=== PATIENT | male | born 1980 ===

== ENCOUNTER 2022-10-19 08:26 | Emergency (ER) | payer OTHER, SELFPAY ==
[2022-10-19 08:35] VITALS: BP 136/105; PULSE 66; RESP 14; TEMP 36.8; O2SAT 98; BMI 29.2
--- NOTE | 2022-10-19 08:56 | ED_ITS ---
HPI - Chest Pain General Time Seen by Provider: 08:57 Date Seen: 10/19/22 Chief Complaint: Chest Pain Stated Complaint: L arm pain, chest pain, TBI causing headaches Time Seen by Provider: 10/19/22 08:46 Source: patient and RN notes reviewed Mode of arrival: ambulatory Limitations: no limitations History of Present Illness HPI narrative: Patient is a 42-year-old male coming in with concerns of possibly his heart. He Googled his symptoms when he could not sleep and it told him to come to the ER. Around 4-5 this morning he could not sleep, is suffering from TBI issues for the last 2 months. He states he has been out of work for 2 months, still stuttering and having balance issues. Has chronic daily headaches. Is scheduled for an appointment in [place] at 3:45 p.m. today, is concerned he might miss it. He was up at 4-5 this morning, notice left forearm pain. He does admit that the pain shot down the arm. He tried to walk it off. He took naproxen 500 mg about 2 hours ago which he has firs TBI. His left forearm pain has resolved. With all of this after he noted the left forearm pain, he thought his chest just felt puffy feeling, discomfort with it. He was not sure if it was just anxiety. He does not have a heart history. He did have a stress test in 2016 and he remembers being told his heart was healthy. He is not a smoker. He states he has not been checked for diabetes and does wonder if he could have that, is unaware of cholesterol status. He does get significant heartburn with tomato in marrow narrow which has been progressively worse. He states he really likes pizza rolls and has not been able to eat them in over a week. The last time he ate them he actually had an emesis or regurgitation secondary to heartburn. Nine hundred thirty last night he did have an emesis, not really sure why. Denies any abdominal pain, no nausea at this time. He does drink some alcohol. As far as family history, their grandparents on both sides that had MIs. He believes his parents are healthy without any problems with the exception of his dad maybe having skin cancer. No numbness tingling in the left arm. Related Data Previous Rx's Medication Instructions Recorded omeprazole 40 mg capsule,delayed 40 mg PO DAILY #30 caps 10/19/22 release prednisone 20 mg tablet 20 mg PO BID #10 tabs 10/19/22 Allergies Allergy/AdvReac Type Severity Reaction Status Date / Time No Known Drug Allergies Allergy Verified 01/11/22 17:06 Review of Systems Status of ROS Reports: 6 or more systems reviewed and unremarkable except as noted in History and below [facility] Social History Smoking Status: Never smoker How often do you have a drink containing alcohol: 4 or more times a week AUDIT-C Alcohol total score: 4 Non-prescribed substance use: denies use Exam Const Vital Signs, click to edit/add: Vital Signs - 24 hr 10/19/22 08:35 Temperature 98.2 F Pulse Rate [Pulse Oximeter] 66 Respiratory Rate 14 Blood Pressure [Left Upper Arm] 136/105 H Pulse Oximetry 98 Oxygen Delivery Method Room Air Documenting provider has reviewed patient's vital signs: yes Common normals: no apparent distress, average body habitus, oriented x3, no limitations, healthy appearing, alert and well nourished General appearance: cooperative, comfortable, well kempt and well developed HENMT Common normals: normocephalic, head/scalp atraumatic and hearing grossly normal bilaterally (Does have hearing aid) Head and scalp: normocephalic and atraumatic Face and sinus: normal facial exam Eye Common normals: PERRL, EOMs intact bilaterally, conjunctivae normal and no scleral icterus Conjunctiva: conjunctiva(e) normal Pupil: PERRL Neck & C-Spine Common normals: full ROM, no lymphadenopathy, supple, no meningeal signs, no JVD and thyroid normal Thyroid: thyroid normal Lymph Lymphatic: no lymphadenopathy noted Chest Common normals: inspection of chest normal and palpation of chest normal (Maybe some generalized anterior chest wall tenderness without any crepitus) Resp Common normals: normal respiratory effort, no retractions, no use of accessory muscles and clear to auscultation bilaterally Effort & inspection: able to speak in complete sentences Auscultation: clear to auscultation bilaterally Cardio Common normals: no JVD, regular rate, regular rhythm, S1 normal heart sound, S2 normal heart sound, no gallops, no clicks and no murmurs Rate: regular rate Rhythm: regular rhythm Heart sounds: S1 normal and S2 normal GI Common normals: Normal to inspection, nondistended, normoactive bowel sounds present, soft to palpation, non-tender, no hepatosplenomegaly and no masses Palpation: soft and no hepatosplenomegaly Extremity Common normals: normal to inspection, full ROM, no calf tenderness and no pedal edema Other: Left arm with full range of motion, normal strength, normal pulses, has good capillary refill, no joint abnormalities noted. Neuro Common normals: oriented x3, moves all extremities, no focal motor deficits and no sensory deficits noted Sensorium/orientation: alert Meningeal signs: no meningeal signs Psych Appearance: well kempt Course Course Hospital Course: With the pain in his forearm and the shooting pain down the left arm, radiculopathy from a cervical spine could be potential. Will get cervical spine films. He is asymptomatic at this time but also took naproxen which certainly could alleviate this type of pain. He is also reporting significant reflux and heartburn symptoms as of late. Underlying GI pathology could be giving him is chest symptomatology. Arrival EKG is very reassuring. He noted symptoms since 4-5 this a.m., his presentation time would make this present at least 4-5 hours, thus the single troponin should rule out WI. will do full complement of labs, including D-dimer. Will get a chest x-ray as well. I have higher suspicion for other etiologies over heart disease at this time. Given his heartburn and reflux symptoms, do think aspirin might exacerbate that and within normal EKG, will await any aspirin for him. I will actually give him 40 mg IV Protonix. Will re-evaluate this obviously if his troponin should be elevated. Will do the point of care troponin but do a confirmatory in the lab as well to ensure no falls readings with the point of care. Reevaluation(s) Time of Reevaluation #1: 12:01 Reevaluation #1: Patient was resting and was awoken when I came in the room. He is still feeling some left arm pain, shoots down the arm intermittently. We reviewed that his cardiac enzymes and EKGs are not revealing any heart attack, this certainly is not a stroke. His neck imaging does indicate that he might have underlying pathology for a cervical radiculopathy. Would recommend that we try some prednisone. He has some Naprosyn at home for his TBI but is not taking it chronically. It did help for while this morning but is not completely causes pain to subside. For his reflux symptoms, would recommend proton pump inhibitor and certainly while he is on the prednisone. He states he does not have a primary care provider, do recommend that he get 1. We have discussed establishing care maybe at the [facility] and like [facility] or [place] as he lives in [place]. He should keep his TBI appointment this afternoon. Vital Signs Vital signs: Initial Vital Signs Temperature 98.2 F 10/19/22 08:35 Temperature Source Temporal Artery Scan 10/19/22 08:35 Pulse Rate 66 10/19/22 08:35 Pulse Rhythm Regular 10/19/22 08:35 Respiratory Rate 14 10/19/22 08:35 Blood Pressure 136/105 H 10/19/22 08:35 Blood Pressure Mean 115 H 10/19/22 08:35 Blood Pressure Position Supine 10/19/22 08:35 Pulse Oximetry 98 10/19/22 08:35 Oxygen Delivery Method Room Air 10/19/22 08:35 Vital Signs Temperature 98.2 F 10/19/22 08:35 Pulse Rate 66 10/19/22 08:35 Respiratory Rate 14 10/19/22 08:35 Blood Pressure 136/105 H 10/19/22 08:35 Pulse Oximetry 98 10/19/22 08:35 Oxygen Delivery Method Room Air 10/19/22 08:35 Temperature 98.2 F 10/19/22 08:35 Pulse Rate 66 10/19/22 08:35 Respiratory Rate 14 10/19/22 08:35 Blood Pressure 136/105 H 10/19/22 08:35 Pulse Oximetry 98 10/19/22 08:35 Oxygen Delivery Method Room Air 10/19/22 08:35 MDM - Chest Pain Differential Diagnosis Differential diagnosis: Likely stable angina, unstable angina pectoris, atypical chest pain, costochondritis, chest pain and biliary colic Lab Data Attestation: I reviewed the patient's lab results. Labs: Lab Results 10/19/22 10/19/22 10/19/22 Range/Units 08:58 09:25 10:55 WBC 5.49 (4.50-11.00) K/uL RBC 4.32 (4.30-5.90) m/uL Hgb 14.6 (13.5-17.5) gm/dL Hct 41.6 (37.0-53.0) % MCV 96 (80-100) fL MCH 34 (26-34) pg MCHC 35 (32-36) gm/dL RDW Coeff of Murphy 12.7 (11.5-15.5) % Plt Count 150 (140-440) K/uL Neut % (Auto) 70.4 (42.0-72.0) % Lymph % (Auto) 18.2 L (20-44) % Childress % (Auto) 10.0 (0.0-11.0) % Eos % (Auto) 0.5 (0.0-7.0) % Baso % (Auto) 0.7 (0.0-3.0) % Neut # (Auto) 3.86 (1.7-7.0) K/uL Lymph # (Auto) 1.00 (0.90-2.90) K/uL Childress # (Auto) 0.50 (0.00-0.90) K/UL Eos # (Auto) 0.03 (0.00-0.50) K/uL Baso # (Auto) 0.04 (0.00-0.30) K/uL Abs Immat Gran (auto) 0.01 (0.00-0.30) K/uL Imm/Tot Granulo (auto) 0.2 % D-Dimer Quant (PE/DVT) < 0.27 (0.00-0.50) ug/ml Sodium 132 L (135-149) mmol/L Potassium 3.4 L (3.6-5.1) mmol/L Chloride 95 L (96-114) mmol/L Carbon Dioxide 28 (20-32) mmol/L BUN 10 (5-24) mg/dL Creatinine 0.8 (0.5-1.5) mg/dL Estimated Creat Clear 130.68 Estimated GFR 113 ml/min Glucose 86 (60-115) mg/dL Lactate 0.9 (0.5-1.9) mmol/L Calcium 9.5 (8.4-10.6) mg/dL Total Bilirubin 1.5 (0.1-1.5) mg/dL AST 68 H (12-35) U/L ALT 69 H (4-50) U/L Alkaline Phosphatase 60 (40-150) U/L Troponin I 0.02 (0.01-0.04) ng/mL C-Reactive Protein 0.5 (0.5-1.0) mg/dL NT-Pro-B Natriuret Pep 144 pg/mL Total Protein 7.3 (6.0-8.3) g/dL Albumin 4.5 (3.3-5.0) g/dL Lipase 259 (23-300) U/L POC Troponin I 0.01 0.00 L (0.01-0.04) ng/ml Imaging Data Chest x-ray: Attestation: I have reviewed the pertinent imaging results. My impression: I see no acute cardiopulmonary pathology on my preliminary review of this chest x-ray. Radiologist's impression: Patient: ISAIAH REYES Facility:?[facility] Patient ID:?[id number] Site Patient ID:?[id number]. Site :?1980 Study:?XRay Chest 2 VIEW-10/19/2022 9:15:46 AM Ordering Physician:?Christoph Edgar Final Report: INDICATION: ARM AND CHEST PAIN TECHNIQUE: Chest 2 views. COMPARISON: None. FINDINGS: Cardiovascular and mediastinum: Heart size and vasculature are normal in caliber and appearance. Lungs and pleural spaces: Lungs are clear. No sign of infiltrate. No sign of pleural effusion. No pneumothorax. Bones and soft tissues: No significant findings. IMPRESSION: No evidence of acute cardiopulmonary process. Dictated by Terence Lyn MD @ 10/19/2022 9:58:23 AM (Electronic Signature) XR cervical spine: Attestation: I have reviewed the pertinent imaging results. Radiologist's impression: Patient: ISAIAH REYES Facility:?[facility] Patient ID:?[id number] Site Patient ID:?[id number]. Site :?1980 Study:?XRay Spine Cervical -10/19/2022 9:48:44 AM Ordering Physician:Vamshi Edgar Final Report: INDICATION: pain in left arm, radiated down arm TECHNIQUE: Cervical spine 3 view. COMPARISON: None. IMPRESSION: Bones: Straightening of expected cervical lordosis. No fractures or significant bone lesions. No spondylolisthesis. Joints: Mild intervertebral disc space narrowing and uncovertebral arthropathy at C5-6 and C6-7. Mild facet arthropathy the lower cervical levels. Soft tissues: Unremarkable. Dictated by Terence Lyn MD @ 10/19/2022 10:50:32 AM (Electronic Signature) ECG Data Attestation: I personally reviewed and interpreted this ECG as follows: (Normal sinus rhythm, 64 beats per minute, no ischemia, QT corrected 416 milliseconds.) ECG interpretation date: 10/19/22 ECG interpretation time: 08:59 Critical Care Time Critical Care Time Critical Care Time: No Discharge Plan Discharge Clinical Impression: Left cervical radiculopathy, GERD (gastroesophageal reflux disease), Chest pain Patient Disposition: Home, Self-Care Condition: Stable Instructions: Chest Pain (ED), GERD (Gastroesophageal Reflux Disease) (ED), Cervical Radiculopathy (ED) Additional Instructions: Start prednisone and take as prescribed, take with food. Will also place you on omeprazole which will hopefully help decrease your heartburn and acid reflux symptoms. Try to minimize foods and any drinks that precipitate this. Do need you to follow up in clinic within the next 1-2 weeks to establish care and follow your medical conditions. You can consider finding 1 of the clinics in [facility]. Clinics associated with [facility] are the [facility] and the [facility]. [phone] and [phone] are the numbers to these clinics respectively. May need to get a referral for your arm if there are ongoing symptoms, this would be to physical therapy. If you have ongoing reflux symptoms or issues, may need to consider further lab testing for H pylori and consideration of an EGD, your primary care provider can help you work through this. Activity Level: Activity as Tolerated Prescriptions: New prednisone 20 mg tablet 20 mg PO BID Qty: 10 0RF omeprazole 40 mg capsule,delayed release(DR/EC) 40 mg PO DAILY Qty: 30 0RF Follow Up/Referrals: Provider,Not a Local [Primary Care Provider] - Stand Alone Forms: [facility] Info Instructions
[2022-10-19 08:57] VITALS: O2SAT 98
--- NOTE | 2022-10-19 08:57 | CRLHL7_ITS ---
For Patients: As a result of the Century Cures Act, medical imaging exams and procedure reports are released immediately into your electronic medical record. You may view this report before your referring provider. If you have questions, please contact your health care provider. INDICATION: ARM AND CHEST PAIN TECHNIQUE: Chest 2 views. COMPARISON: None. FINDINGS: Cardiovascular and mediastinum: Heart size and vasculature are normal in caliber and appearance. Lungs and pleural spaces: Lungs are clear. No sign of infiltrate. No sign of pleural effusion. No pneumothorax. Bones and soft tissues: No significant findings. IMPRESSION: No evidence of acute cardiopulmonary process. Dictated by Terence Lyn MD @ 10/19/2022 9:58:23 AM (Electronically Signed)
--- NOTE | 2022-10-19 09:05 | CRLHL7_ITS ---
For Patients: As a result of the Cures Act, medical imaging exams and procedure reports are released immediately into your electronic medical record. You may view this report before your referring provider. If you have questions, please contact your health care provider. INDICATION: pain in left arm, radiated down arm TECHNIQUE: Cervical spine 3 view. COMPARISON: None. IMPRESSION: Bones: Straightening of expected cervical lordosis. No fractures or significant bone lesions. No spondylolisthesis. Joints: Mild intervertebral disc space narrowing and uncovertebral arthropathy at C5-6 and C6-7. Mild facet arthropathy the lower cervical levels. Soft tissues: Unremarkable. Dictated by Terence Lyn MD @ 10/19/2022 10:50:32 AM (Electronically Signed)
[2022-10-19 09:35] LABS: Lactate* 0.9 mmol/L (0.5-1.9)
[2022-10-19 09:38] LABS: Basophils Absolute Auto 0.04 K/uL (0.00-0.30); Basophils Percent Auto 0.7 % (0.0-3.0); Eosinophils Absolute Auto 0.03 K/uL (0.00-0.50); Eosinophils Percent Auto 0.5 % (0.0-7.0); Hematocrit 41.6 % (37.0-53.0); Hemoglobin* 14.6 gm/dL (13.5-17.5); Immature Granulocytes Abs Auto 0.01 K/uL (0.00-0.30); Immature Granulocytes Pct Auto 0.2 %; Lymphocytes Percent Auto 18.2 % (20-44); Mean Corpuscular HGB Conc 35 gm/dL (32-36); Mean Corpuscular Hemoglobin 34 pg (26-34); Mean Corpuscular Volume 96 fL (80-100); Neutrophils Absolute Auto 3.86 K/uL (1.7-7.0); Neutrophils Percent Auto 70.4 % (42.0-72.0); Platelet Count* 150 K/uL (140-440); RDW Coefficient of Variation % 12.7 % (11.5-15.5); Red Blood Count 4.32 m/uL (4.30-5.90); White Blood Count* 5.49 K/uL (4.50-11.00)
[2022-10-19 09:52] LABS: Slide Review Reflex No
[2022-10-19 10:00] LABS: D Dimer Quantitative* < 0.27 ug/ml (0.00-0.50)
[2022-10-19 10:03] LABS: Albumin* 4.5 g/dL (3.3-5.0); Chloride* 95 mmol/L (96-114); Sodium* 132 mmol/L (135-149)
[2022-10-19 10:04] LABS: Potassium* 3.4 mmol/L (3.6-5.1)
[2022-10-19 10:05] LABS: Creatinine* 0.8 mg/dL (0.5-1.5); Est. Creatinine Clearance* 130.68; Estimated Glomerular Filt Rate 113 ml/min
[2022-10-19 10:06] LABS: Alanine Aminotransferase* 69 U/L (4-50); Alkaline Phosphatase* 60 U/L (40-150); Aspartate Amino Transferase* 68 U/L (12-35); Bilirubin Total* 1.5 mg/dL (0.1-1.5); Blood Urea Nitrogen* 10 mg/dL (5-24); Carbon Dioxide* 28 mmol/L (20-32); Glucose* 86 mg/dL (60-115); Lipase* 259 U/L (23-300); Total Protein* 7.3 g/dL (6.0-8.3)
[2022-10-19 10:07] LABS: Calcium* 9.5 mg/dL (8.4-10.6)
[2022-10-19 10:09] LABS: C Reactive Protein* 0.5 mg/dL (0.5-1.0)
[2022-10-19 10:18] LABS: Troponin I* 0.02 ng/mL (0.01-0.04)
[2022-10-19 10:19] LABS: NT Pro B Type NatriureticPept* 144 pg/mL
[2022-10-19 11:13] LABS: Troponin, Point-of-Care* 0.01 ng/ml (0.01-0.04)
[2022-10-19 13:20] VITALS: BP 136/105; PULSE 66; RESP 14; TEMP 36.8
== END 2022-10-19 13:20 | disposition home or self-care (01) ==
PROVIDERS: Emergency Provider Family Medicine
DX: R07.9 Chest pain, unspecified (principal); M54.12 Radiculopathy, cervical region; K21.9 Gastro-esophageal reflux disease without esophagitis
CPT/HCPCS: 36415; 71046; 72040; 80053; 83605; 83690; 83880; 84484; 85025; 85379; 86140; 93005; 94761; 99284; 99285

== ENCOUNTER 2023-05-01 13:27 | Outpatient (CLI) | payer OTHER, SELFPAY ==
--- OUTSIDE RECORDS SUMMARY | 2023-05-01 13:43 | XMS_ITS | Encounter Summary ---
Author Name Unknown Organization [facility] Address [address] [place] [address] Care Team Providers Care Manager Heavy Duty Name Role Phone Blake, Primary Care Provider Unavailabl e Clinic, No Primary Unavailable Unavailable Reason for Visit * (Routine) - Open Specialty Diagnoses / Procedures Referred By Jd t Referred To Contact Diagnoses Vision changes Procedures MRI BRAIN W/O&W CON Christofer Quigley MD [address] [place] [address] [address] [place] [address] Referral ID Status Reason Start Date Expiration Date Visits Re quested Visits Authorized [id number] Open 11/21/2022 1 1 Encounter Details Date Type Department Care Team (Late st Contact Info) Description 12/03/2022 3:30 PM CDT Ancillary Procedure [facility] [address] [place] [address] [address] [place] [id number] Vision changes Social History Tobacco Use Types Packs/Day Years Used Date Smoking Tobacco: Never Smokeless Tobacco: Never Alcohol Use Standard Drinks/Week Comments Not Currently 15 (1 standard drink = 0.6 oz pu re alcohol) Sex and Gender Information Value Date Recorded Sex Assigned at Not on file Gender Identity Not on file Sexual Orientation Not on file documented as of this encounter Plan of Treatment Not on file documented as of this encounter Procedures Procedure Name Priority Date/Time Associated Diagnosis Comments MRI BRAIN W/O&W CON Routine 12/03/2022 3 :45 PM CDT Vision changes documented in this encounter Results * MRI BRAIN W/O&W CON (12/03/2022 3:45 PM CDT) Anatomical Region Laterality Modality Head Magnetic Resonan ce 12/03/2022 7:54 PM CDT Impressions 12/03/2022 8:00 PM CDT 1. ??1 cm faint crescentic T2 prolongation with enhancement at the right frontal centrum semiovale semiovale, probably reflecting an underlying vascular anomaly of no clinical significance. Less likely secondary consideration of an inflammatory lesion. Subacute enhancing infarction is not favored. Follow-up MRI in 3-6 months may be considered to assess its stability. 2. ??Minimal bifrontal white matter T2 prolongation, which could reflect chronic migrainous changes, chronic microvascular disease, gliosis from remote inflammatory or other vascular insult. 3. ??No acute or significant intracranial abnormality. Signed by Louis Shah M.D. Narrative 12/03/2022 8:00 PM CDT EXAM: MRI BRAIN W/O&W CON 12/03/2022. COMPARISON: ??None. HISTORY: ??vision changes ICD-10: ??H53.9 Unspecified visual disturbance CONTRAST: GADOBUTROL 1 MMOL/ML (604.72 MG/ML) INTRAVENOUS SOLUTION ?Dose Given: 9 mL TECHNIQUE: Sagittal FLAIR T1, axial FLAIR T2, axial fat saturated FSE T2, axial DWI, axial T1, axial GRE, axial and coronal T1 post gadolinium. 9 cc contrast was administered intravenously. FINDINGS: Approximately 1 cm faint crescentic T2 prolongation with enhancement at the right frontal centrum semiovale is without underlying mass, mass effect, or restricted diffusion. This probably reflects an incidental vascular anomaly, clinically insignificant. Elsewhere, no restricted diffusion, gradient signal abnormality or mass is noted. Ventricles are normal in size and configuration. Brain volume is normal. No other abnormal intracranial enhancement is seen. Minimal punctate and predominantly bifrontal white matter T2 prolongation is apparent. Corpus callosum and posterior fossa are normal. Trivial ethmoid and maxillary sinus disease, insignificant. Remaining paranasal sinuses and mastoid air cells are clear. The cervicomedullary junction is normal. Dural sinuses are patent. Intravascular flow voids are maintained at the skull base. Procedure Note Louis Shah MD - 12/03/2022 EXAM: MRI BRAIN W/O&W CON 12/03/2022. COMPARISON: None. HISTORY: vision changes ICD-10: H53.9 Unspecified visual disturbance CONTRAST: GADOBUTROL 1 MMOL/ML (604.72 MG/ML) INTRAVENOUS SOLUTION DoseGiven: 9 mL TECHNIQUE: Sagittal FLAIR T1, axial FLAIR T2, axial fat saturated FSE T2,axial DWI, axial T1, axial GRE, axial and coronal T1 post gadolinium. 9 cccontrast was administered intravenously. FINDINGS: Approximately 1 cm faint crescentic T2 prolongation withenhancement at the right frontal centrum semiovale is without underlyingmass, mass effect, or restricted diffusion. This probably reflects anincidental vascular anomaly, clinically insignificant. Elsewhere, no restricted diffusion, gradient signal abnormality or mass isnoted. Ventricles are normal in size and configuration. Brain volume isnormal. No other abnormal intracranial enhancement is seen. Minimalpunctate and predominantly bifrontal white matter T2 prolongation isapparent. Corpus callosum and posterior fossa are normal. Trivial ethmoid and maxillary sinus disease, insignificant. Remainingparanasal sinuses and mastoid air cells are clear. The cervicomedullary junction is normal. Dural sinuses are patent.Intravascular flow voids are maintained at the skull base. IMPRESSION 1. 1 cm faint crescentic T2 prolongation with enhancement at the rightfrontal centrum semiovale semiovale, probably reflecting an underlyingvascular anomaly of no clinical significance. Less likely secondaryconsideration of an inflammatory lesion. Subacute enhancing infarction isnot favored. Follow-up MRI in 3-6 months may be considered to assess itsstability. 2. Minimal bifrontal white matter T2 prolongation, which could reflectchronic migrainous changes, chronic microvascular disease, gliosis fromremote inflammatory or other vascular insult. 3. No acute or significant intracranial abnormality. Signed by Louis Shah M.D. Christofer Quigley MD MRI ORDERABLE documented in this encounter Visit Diagnoses Diagnosis Vision changes Unspecified visual disturbance documented in this encounter Administered Medications Inactive Administered Medications - up to 3 most recent administrations Medication Order MAR Action Action Date Dose Rate Site gadobutroL (GADAVIST) 1 mmol/mL (604.72 mg/mL) solution 1-10 mL 1-10 mL, Intravenous, INTRA-PROCEDURE ONE TIME DOSE NEEDED, 1 dose, Starting on 12/03/22 at 1536, Until 8/26/23 at 1536, per procedure Given 12/03/2022 3:36 PM CDT 9 mL documented in this encounter Care Teams Manager Heavy Duty Relationship Specialty Start Date End Date None, PCP - General 08/15/22 Clinic, No Primary PCP - Primary Care Clinic 08/15/22 documented as of this encounter
--- OUTSIDE RECORDS SUMMARY | 2023-05-01 13:43 | XMS_ITS | Clinical Summary ---
Author Name Unknown Organization [facility] Address [facility] [place] [address] Care Team Providers Care Claim Adjuster Name Role Phone Clinic - [facility] Primary Ca re Provider Alfredo Cali MD Unavailable + [phone] Allergies Active Allergy Reactions Criticality Noted Date Comments No Known Drug Allergy 04/04/2003 Medications Medication Sig Dispensed Refills Start Date End Date Status RITALIN 10 MG OR TABS 1 TABLET TWICE DAILY BEFORE MEALS 60 0 04/06/2006 Active Active Problems Problem Noted Date Diagnosed Date Alcohol dependence with unsp ecified alcohol-induced disorder 02/12/2018 Abdominal pain, unspecified abdominal location 1 Overview: Previous workup in [place]. Records requested 01/24/18. Attention deficit disorder 04/10/2006 Overview: Problem list name updated by automated process. Provider to review Resolved Problems Problem Noted Date Diagnosed Date Resolved Date Alcohol abuse 01/24/2018 02/12/2018 Family History Relation Status Comments Cousin Social History Tobacco Use Types Packs/Day Years Used Date Smoking Tobacco: Never Smokeless Tobacco: Never Alcohol Use Standard Drinks/Week Comments Yes 12 (1 standard drink = 0.6 oz pu re alcohol) Adolescent Education Answer Date Record ed Getting School Help Needed Not on file 01/14 Sex and Gender Information Value Date Recorded Sex Assigned at Not on file Gender Identity Not on file Sexual Orientation Not on file Last Filed Vital Signs Vital Sign Reading Time Taken Comments Blood Pressure 131/85 11/01/2021 3:20 PM CDT Pulse 81 11/01/2021 3:20 PM CDT Temperature 36.6 ??C (97.9 ??F) 11/01/2021 2:41 PM CD T Respiratory Rate 14 11/01/2021 2:06 PM CDT Oxygen Saturation 99% 11/01/2021 3:20 PM CDT Inhaled Oxygen Concentration - - Weight 102.7 kg (226 lb 8 oz) 02/12/2018 1:08 PM [employer] Height 182.9 cm (6') 02/12/2018 1:08 PM [employer] Body Mass Index 30.72 02/12/2018 1:08 PM [employer] Plan of Treatment Health Maintenance Due Date Last Done Comments ADVANCE CARE PLANNING 1979 ANNUAL REVIEW OF HM ORDERS 1980 HEPATITIS B IMMUNIZATION (1 of 3 - 3-dose series) 1979 YEARLY PREVENTIVE VISIT 1979 COVID-19 Vaccine (#1) 1979 Pneumococcal Vaccine: Pediat rics (0 to 5 Years) and At-Risk Patients (6 to 64 Years) (1 of 2 - PCV) 1985 HEPATITIS C SCREENING 1997 DTAP/TDAP/TD IMMUNIZATION (1 - Tdap) 2004 LIPID 2014 INFLUENZA VACCINE (#1) 2022 PHQ-2 (once per calendar year) 2023 HIV SCREENING Completed 04/29/2002 HPV IMMUNIZATION Aged Out No longer e ligible based on patient's age to complete this topic IPV IMMUNIZATION Aged Out No longer e ligible based on patient's age to complete this topic MENINGITIS IMMUNIZATION Aged Out No l onger eligible based on patient's age to complete this topic RSV MONOCLONAL ANTIBODY Aged Out No l onger eligible based on patient's age to complete this topic Care Teams Claim Adjuster Relationship Specialty Start Date End Date Clinic - [facility] [address] [place] [address] PCP - General 01/24/18 [place] [address] [place] [address] 01/23/18
--- OUTSIDE RECORDS SUMMARY | 2023-05-01 13:43 | XMS_ITS | Encounter Summary ---
Author Name Unknown Organization [facility] Address [address] [address] Care Team Providers Care Recording Studio Set Up Worker Name Role Phone Unassigned, Provider Primary Care Provider Unava ilable Reason for Visit * Reason Comments Head Injury Encounter Details Date Type Department Care Team Description 08/15/2022 11:00 AM CDT Office Visit [facility] [place] [address] [place], [place] [address] Lorena Norton PA-C [address] [place], [place] [address] Closed head injury, initial encounter (Primary Dx); Confusion; Work related injury Social History Tobacco Use Types Packs/Day Years Used Date Smoking Tobacco: Never Tobacco Cessation:Counseling Given: Not Answered Sex and Gender Information Value Date Recorded Sex Assigned at Not on file Gender Identity Not on file Sexual Orientation Not on file documented as of this encounter Last Filed Vital Signs Vital Sign Reading Time Taken Comments Blood Pressure 143/99 08/15/2022 10:11 AM CDT Pulse 70 08/15/2022 10:11 AM CDT Temperature 36.7 ??C (98 ??F) 08/15/2022 10:17 AM CDT Respiratory Rate 20 08/15/2022 10:11 AM CDT Oxygen Saturation 95% 08/15/2022 10:11 AM CDT Inhaled Oxygen Concentration - - Weight - - Height - - Body Mass Index - - documented in this encounter Progress Notes * Lorena Norton PA-C - 08/15/2022 11:00 AM CDT [facility] Patient: Jairo Hernandez Date of : 1980 (42 y.o.) Subjective CHIEF COMPLAINT: Chief Complaint Patient presents with Head Injury HISTORY OF PRESENT ILLNESS: Jairo Hernandez is a 42 y.o. male who presents to urgent care for evaluation of a head injury. Just prior to arrival the patient was hit in the forehead by several metal signs. He denies any loss consciousness. Since that time he has had a severe headache located in both of his temples. He has also felt shaky, stating that it feels as though he is going to sees. He also is having difficulty finding his words. He did initially have some double vision, but this has resolved. He is noted to be tremoring on the exam. He does have a history of alcohol abuse. He states he drank his normal amount of alcohol yesterday evening. He does occasionally feels shaky when withdrawing from alcohol, but nev er this early after his last drink. No history of withdrawal seizures. No nausea or vomiting. He isalso having pain in the left side of his neck. He is feeling off balance and having difficulty walking. The patient's past medial history, social history, surgical history, family history, medications, and allergies were reviewed in [facility] and updated as appropriate. Significant factors are outlined in the HPI. REVIEW OF SYSTEMS: A comprehensive review of systems was performed and was negative, except as noted in the HPI. Objective PHYSICAL EXAM: VITALS: BP (!) 143/99 (BP Location: Right Arm, BP Cuff Size: Regular - Long) Pulse 70 Temp 36.7??C (98 ??F) (Oral) Resp 20 SpO2 95% Physical Exam Vitals and nursing note reviewed. Constitutional: General: He is not in acute distress. Appearance: He is well-developed. He is not diaphoretic. HENT: Head: Normocephalic. Contusion (forehead) present. Right Ear: Tympanic membrane, ear canal and external ear normal. Left Ear: Tympanic membrane, ear canal and external ear normal. Nose: Nose normal. Mouth/Throat: Pharynx: Oropharynx is clear. Uvula midline. Eyes: General: Lids are normal. Vision grossly intact. Extraocular Movements: Extraocular movements intact. Right eye: No nystagmus. Left eye: No nystagmus. Conjunctiva/sclera: Conjunctivae normal. Pupils: Pupils are equal, round, and reactive to light. Neck: Trachea: Phonation normal. Cardiovascular: Rate and Rhythm: Normal rate and regular rhythm. Pulmonary: Effort: Pulmonary effort is normal. Breath sounds: Normal breath sounds. Musculoskeletal: Cervical back: Neck supple. No rigidity. Muscular tenderness (left) present. No spinous process tenderness. Comments: Moves all extremities equally. Skin: General: Skin is warm and dry. Neurological: General: No focal deficit present. Mental Status: He is alert and oriented to person, place, and time. Mental status is at baseline. GCS: GCS eye subscore is 4. GCS verbal subscore is 5. GCS motor subscore is 6. Cranial Nerves: No cranial nerve deficit, dysarthria or facial asymmetry. Sensory: Sensation is intact. No sensory deficit. Motor: Tremor (generalized) present. No weakness. Coordination: Coordination is intact. Psychiatric: Behavior: Behavior is cooperative. Thought Content: Thought content normal. Assessment IMPRESSION: 1. Closed head injury, initial encounter 2. Confusion 3. Work related injury Plan The patient is neurologically intact, but complains symptoms concerning for significant head injury. It was recommended that he transfer to the emergency room. He was agreeable. EMS recall for transfer. He was stable at discharge for transfer to [facility]. Lorena Norton PA-C 08/15/2022 This note was dictated using recognition software. As a result, some recognition errors may be present. documented in this encounter Nursing Notes * Shaneka Marlow RN - 08/15/2022 11:00 AM CDT Jairo Hernandez is a 42 y.o.male presents to the Urgent Care for Head Injury Where did this injury happen? Work comp/ Work related - head was hit with sign at work. Large red spot on forehead. No laceration. 08/15/2022 Since the injury have conditions: Worsened Since the injury have you had headaches? YES Since the injury have you had nausea? No Since the injury have you had vision changes? YES - double vision initially but better now. Hard toread Since the injury have you had balance or coordination problems? YES Since the injury have you had trouble concentrating? YES documented in this encounter Plan of Treatment Not on file documented as of this encounter Visit Diagnoses Diagnosis Closed head injury, initial encounter- Primary Confusion Unspecified psychosis Work related injury Injury, other and unspecified, unspecified site documented in this encounter Care Teams Recording Studio Set Up Worker Relationship Specialty Start Date End Date Unassigned, Provider [address] [place] [address] PCP - General 06/10/00 documented as of this encounter
--- OUTSIDE RECORDS SUMMARY | 2023-05-01 13:43 | XMS_ITS | Referral Summary ---
Author Name Unknown Organization [facility] Address [address] [place] [address] Care Team Providers Care Hand Plug Shaper Name Role Phone None, Md Primary Care Provider [facility], No Primary Unavailable Unavailable Allergies No known active allergies Medications Medication Sig Dispensed Refills Start Date End Date Status omeprazole (PRILOSEC) 40 mg oral delayed release capsule Take 1 capsule (40 mg) by mouth once daily. 0 10/19/2022 Active predniSONE (DELTASONE) 20 mg oral tablet Take 1 tablet (20 mg) by mouth Twice a Day. 0 10/19/2022 Active amitriptyline (ELAVIL) 10 mg oral tablet TAKE 3 TABLETS (30 MG) BY MOUTH AT BEDTIME 90 tablet 5 12/16/2022 Active venlafaxine ER (EFFEXOR XR) 150 mg oral extended release capsule 24 HR Take 1 capsule by mouth daily with food 90 capsule 3 03/27/2023 Active Active Problems Problem Noted Date Diagnosed Date Alcohol dependence with unsp ecified alcohol-induced disorder 02/12/2018 Attention deficit disorder 04/10/2006 Overview: Problem list name updated by automated process. Provider to review Social History Tobacco Use Types Packs/Day Years [...] Sign Reading Time Taken Comments Blood Pressure 148/100 08/15/2022 12:30 PM CDT Pulse 77 08/15/2022 12:45 PM CDT Temperature 37.2 ??C (98.9 ??F) 08/15/2022 11:23 AM C DT Respiratory Rate 14 01/10/2023 1:59 PM CDT Oxygen Saturation 95% 08/15/2022 12:45 PM CDT Inhaled Oxygen Concentration - - Weight 9.07 kg (20 lb) 01/10/2023 1:59 PM CDT Height 182.9 cm (6') 01/10/2023 1:59 PM CDT Body Mass Index 2.71 01/10/2023 1:59 PM CDT Plan of Treatment Not on file Care Teams Hand Plug Shaper Relationship Specialty Start Date End Date None, PCP - General 08/15/22 Clinic, No Primary PCP - Primary Care [facility] 08/15/22
--- OUTSIDE RECORDS SUMMARY | 2023-05-01 13:43 | XMS_ITS | Clinical Summary ---
Author Name Unknown Organization [facility] Address [address] [place] [address] Care Team Providers Care Ticket Marker Name Role Phone Unassigned, Provider Primary Care Provider Unava ilable Source Comments You are receiving this document as you are listed as the primary care provider,follow-up provider, or the patient has been referred to you for consultation.This is in compliance with the Medicare and[employer] EHR Incentive Program,which states Providers who transition their patient to another setting of careor provider of care or refers their patient to another provider of care shouldprovide summary care record for each transition of care or referral. [facility] Allergies No known active allergies Medications No known medications Social History Tobacco Use Types Packs/Day Years [...] - - Body Mass Index - - Plan of Treatment Health Maintenance Due Date Last Done Comments Hep C Screening (Preventive Services) 1980 HepB (1) 1979 COVID-19 Vaccine (#1) 1979 HIV Screening (Preventive Services) 1995 Adult Preventive Visit 1997 DTaP/Tdap/Td (1 - Tdap) 1998 Cholesterol 2014 Influenza (#1) 2022 Zoster/Shingles (1 of 2) 2029 HPV Vaccine Aged Out No longer eligi ble based on patient's age to complete this topic HepA Aged Out No longer eligi ble based on patient's age to complete this topic Hib Aged Out No longer eligi ble based on patient's age to complete this topic IPV (Polio) Aged Out No longer eligi ble based on patient's age to complete this topic MCV4 Aged Out No longer eligi ble based on patient's age to complete this topic Pneumococcal Aged Out No longer eligi ble based on patient's age to complete this topic Care Teams Ticket Marker Relationship Specialty Start Date End Date Unassigned, Provider [address] [place] [id number] PCP - General 06/10/00
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
--- OUTSIDE RECORDS SUMMARY | 2023-05-01 13:43 | XMS_ITS | Referral Summary ---
Author Name Unknown Organization [place] Address [facility] [place] [address] Care Team Providers Care Respiratory Technician Name Role Phone Clinic - [facility] Primary Ca re Provider Alfredo Cali MD Unavailable + [phone] Allergies Active Allergy Reactions Criticality Noted Date Comments No Known Drug Allergy 04/04/2003 Medications Medication Sig Dispensed Refills Start Date End Date Status RITALIN 10 MG OR TABS 1 TABLET TWICE DAILY BEFORE MEALS 60 0 04/06/2006 Active Active Problems Problem Noted Date Diagnosed Date Alcohol dependence with unsp ecified alcohol-induced disorder 02/12/2018 Abdominal pain, unspecified abdominal location 1 Overview: Previous workup in [place]. Records requested 01/24/18. Attention deficit disorder 04/10/2006 Overview: Problem list name updated by automated process. Provider to review Resolved Problems Problem Noted Date Diagnosed Date Resolved Date Alcohol abuse 01/24/2018 02/12/2018 Social History Tobacco Use Types Packs/Day Years [...] (226 lb 8 oz) 02/12/2018 1:08 PM DIRECTOR CAREER SERVICES Height 182.9 cm (6') 02/12/2018 1:08 PM DIRECTOR CAREER SERVICES Body Mass Index 30.72 02/12/2018 1:08 PM DIRECTOR CAREER SERVICES Plan of Treatment Not on file Care Teams Respiratory Technician Relationship Specialty Start Date End Date Clinic - [facility] [address] [place] [address] PCP - General 01/24/18 [place] [address] [place] [address] 01/23/18
--- OUTSIDE RECORDS SUMMARY | 2023-05-01 13:43 | XMS_ITS | Encounter Summary ---
Author Name Unknown Organization [facility] Address [address] [place] [address] Care Team Providers Care Television Agent Name Role Phone None, [facility] Primary Unavailable Unavailable Reason for Referral * Consultation (Routine) - Open Specialty Diagnoses / Procedures Referred By Jd kong Referred To Contact Orthopedics Diagnoses Bilateral shoulder pain, unspecified chronicity Christofer Quigley MD [address] [place] [address] [place] [id number] , Not Listed no address Referral ID Status Reason Start Date Expiration Date V isits Requested Visits Authorized [id number] Open Specialty Services Required 01/10/2023 1 1 Comments [facility] - shoulder and neck pain Reason for Visit * Reason Comments Follow up Encounter Details Date Type Department Care Team (Late st Contact Info) Description 01/10/2023 2:00 PM CDT Office Visit [facility] [address] [place] [phone] Christofer Quigley MD [address] [place] [address] [place] [phone] Bilateral shoulder pain, unspecified chronicity (Primary Dx); Sensory disturbance; Concussion without loss of consciousness, subsequent encounter Social History Tobacco Use Types Packs/Day [...] - - Temperature - - Respiratory Rate 14 01/10/2023 1:59 PM CDT Oxygen Saturation - - Inhaled Oxygen Concentration - - Weight 9.07 kg (20 lb) 01/10/2023 1:59 PM CDT Height 182.9 cm (6') 01/10/2023 1:59 PM CDT Body Mass Index 2.71 01/10/2023 1:59 PM CDT documented in this encounter Progress Notes * Christofer Quigley MD - 01/10/2023 2:00 PM CDT History of Present Illness: Patient was first evaluated 11/21/2022 with symptoms suggesting concussion. I wrote for amitriptyline to see if this would help with sleep. 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 But follow up imaging was ordered for 3-6 months to ensure stability. He was already working with PT and OT. He doesn't want to use amitriptyline because he drinks. He says that his hands and arms feel numb when he sits still or lays down. It usually starts with about half of the hand but will eventually seem to involve the entire hand. Medications: Current Outpatient Medications on File Prior to Visit Medication Sig Dispense Refill amitriptyline (ELAVIL) 10 mg oral tablet TAKE 3 TABLETS (30 MG) BY MOUTH AT BEDTIME 90 tablet 5 omeprazole (PRILOSEC) 40 mg oral delayed release capsule Take 1 capsule (40 mg) by mouth once daily. predniSONE (DELTASONE) 20 mg oral tablet Take 1 tablet (20 mg) by mouth Twice a Day. No current facility-administered medications on file prior to visit. Allergies: No Known Allergies Past Medical History: Past Medical History: Diagnosis Date Anxiety Depression Headache Hearing loss Injury of head Memory difficulty Sleeping difficulty Work related injury Impression/Recommendations: 42 year old male presents as a follow up for various symptoms of concussion following a head injurywithout LOC last August. He has been working with PT/OT on this. 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 With these exam findings, an MRI was obtained. This was unremarkable, though will need to repeat the scan in a few months to follow up on an incidental finding (likely indicating an irrelevant benign vascular lesion). Currently, he seems to be very anxious. I thought venlafaxine could help with this along with headaches and dizziness. He is also reporting some sensory symptoms in the left sided extremities, often effecting distributions more characteristic of a peripheral (if any) lesion. Finally, much of his discomfort seems to center around the neck and upper back and shoulders, will refer to orthopedics. I spent 49 minutes on the date of encounter with the patient and before and after the visit on activities detailed in the above note which may include reviewing the EMR, documenting clinical information, and communicating with other health resident care manager rn. Christofer Quigley MD documented in this encounter Plan of Treatment Scheduled Orders Name Type Priority Associated Diagnoses Orde r Schedule EMG 2 EXTREMITY Neurology Routine Sensory disturbance Expected: 01/10/2023 (Approximate), Expires: 01/11/2024 Scheduled Referrals Name Type Priority Associated Diagnoses Orde r Schedule REFERRAL ORTHOPEDICS Referral Routine Bilateral shoulder pain, unspecified chronicity Ordered: 01/10/2023 documented as of this encounter Visit Diagnoses Diagnosis Bilateral shoulder pain, unspecified chronicity- Primary Sensory disturbance Disturbance of skin sensation Concussion without loss of consciousness, subsequent encounter documented in this encounter Care Teams Television Agent Relationship Specialty Start Date End Date Blake, PCP - General 08/15/22 Clinic, No Primary PCP - [facility] Clinic 08/15/22 documented as of this encounter
--- OUTSIDE RECORDS SUMMARY | 2023-05-01 13:43 | XMS_ITS | Encounter Summary ---
Author Name Unknown Organization [facility] Address [address] [place] [address] Care Team Providers Care Game Tester Name Role Phone None, [facility] Primary Unavailable Unavailable Encounter Details Date Type Department Care Team (Latest Contact Info) Description 08/15/2022 Travel Social History Tobacco Use Types Packs/Day Years Used Date Smoking Tobacco: Never Assessed Alcohol Use Standard Drinks/Week Comments Yes 15 [...] PM CDT documented as of this encounter Plan of Treatment Not on file documented as of this encounter Visit Diagnoses Not on filedocumented in this encounter Care Teams Game Tester Relationship Specialty Start Date End Date Md Blake PCP - General 08/15/22 Clinic, No Primary PCP - Primary Care Clinic 08/15/22 documented as of this encounter
--- OUTSIDE RECORDS SUMMARY | 2023-05-01 13:43 | XMS_ITS | Clinical Summary ---
Author Name Unknown Organization [facility] Address [address] [place] [address] Care Team Providers Care Creel Hand Name Role Phone None, Md Primary Care Provider [facility] Clinic, No Primary Unavailable Unavailable Allergies No [...] updated by automated process. Provider to review Family History Medical History Relation Comments Stroke Paternal Grandmother Relation Status Comments Paternal Grandmother Social History Tobacco Use Types Packs/Day Years [...] 01/10/2023 1:59 PM CDT Plan of Treatment Health Maintenance Due Date Last Done Comments Hepatitis C Screening 1979 Lipid Screening 1979 COVID-19 Vaccine (#1) 1979 Anxiety Screening (GENE-2) 1980 Depression Assessment (PHQ-2) 1980 Adult Tetanus Booster 1998 Influenza Vaccine (#1) 2023 Postp oned from 12/09/2022 (Unavailable) Pneumococcal <65 Aged Out No longer e ligible based on patient's age to complete this topic Care Teams Creel Hand Relationship Specialty Start Date End Date None, PCP - General 08/15/22 Clinic, No Primary PCP - Primary Care Clinic 08/15/22
--- OUTSIDE RECORDS SUMMARY | 2023-05-01 13:44 | XMS_ITS | Clinical Summary ---
Author Name Unknown Organization [facility] Address [place], [place] [address] Care Team Providers Care Ranger Aide Name Role Phone Clinic, No Pcp Or Primary Care Provider Unavaila ble Allergies No known active allergies Medications Medication Sig Dispensed Refills Start Date End Date Status methocarbamoL (ROBAXIN) 750 mg tabletIndications:M yofascial neck pain Take 1 Tablet (750 mg) by mouth 3 times daily if needed for Muscle Spasm. 15 Tablet 0 04/04/2023 Active methylPREDNISolone (MEDROL DOSEPAK) 4 mg tabletIndications:M yofascial neck pain Take by mouth as instructed per packaging. 21 Tablet 0 04/04/2023 Active Active Problems No known active problems Encounters Date Type Department Care Team Description 04/04/2023 6:45 PM CENTERLESS GRINDING MACHINE ADJUSTER - 04/04/2023 9:29 PM CENTERLESS GRINDING MACHINE ADJUSTER Emergency [facility] [place] [id number] [place] [address] David Grier MD Myofascial neck pain (Primary Dx) Discharge Disposition: Home Self Care 02/08/2023 4:15 PM CDT - 02/08/2023 6:07 PM CDT Emergency [facility] [place] [address] [place] [address] Reynaldo Arzola MD Chest pain, unspecified type (Primary Dx) Discharge Disposition: Home Self Care from Last 3 Months Social History Tobacco Use Types Packs/Day Years Used Date Smoking Tobacco: Never Smokeless Tobacco: Never Alcohol Use Standard Drinks/Week Comments Yes 12 (1 standard drink = 0.6 oz pu re alcohol) Sex and Gender Information Value Date Recorded Sex Assigned at Not on file Gender Identity Not on file Sexual Orientation Not on file Obstetrics History Last Filed Vital Signs Vital Sign Reading Time Taken Comments Blood Pressure 156/108 04/04/2023 7:02 PM CENTERLESS GRINDING MACHINE ADJUSTER Pulse 93 04/04/2023 7:02 PM CENTERLESS GRINDING MACHINE ADJUSTER Temperature 36.2 ??C (97.1 ??F) 04/04/2023 7:02 PM CS T Respiratory Rate 18 04/04/2023 7:02 PM CENTERLESS GRINDING MACHINE ADJUSTER Oxygen Saturation 96% 04/04/2023 7:02 PM CENTERLESS GRINDING MACHINE ADJUSTER Inhaled Oxygen Concentration - - Weight 97.5 kg (215 lb) 04/04/2023 7:02 PM CENTERLESS GRINDING MACHINE ADJUSTER Height 182.9 cm (6') 04/04/2023 7:02 PM CENTERLESS GRINDING MACHINE ADJUSTER Body Mass Index 29.16 04/04/2023 7:02 PM CENTERLESS GRINDING MACHINE ADJUSTER Plan of Treatment Health Maintenance Due Date Last Done Comments COVID-19 vaccine series (#1) 1979 Tdap 1990 Depression screening for age 12+ 1991 HIV for age 15-65 1994 Hepatitis C screening for ag e 18-79 1997 Tetanus booster 1999 Lipids for age 35-44 2014 BMI (ht and wt on same day) for age 18+ 11/08/2017 11/08/2016 Influenza for age 9-49 12/09/2022 Pneumococcal series for age 6-64 Aged Out No longer eligible based on patient's age to complete this topic Procedures Procedure Name Priority Date/Time Associated Diagnosis Comments XR NECK SOFT TISSUE 1 VIEW STAT 04/04/2023 8:59 PM CENTERLESS GRINDING MACHINE ADJUSTER XR CHEST 2 VIEWS PA AND LATERAL STAT 02/08/2023 5:04 PM CDT BASIC METABOLIC PANEL STAT 02/08/2023 4:56 PM CDT TROPONIN I STAT 02/08/2023 4:56 PM CDT CBC W PLT NO DIFF STAT 02/08/2023 4:5 6 PM CDT EKG 12 LEAD STAT 02/08/2023 from Last 3 Months Results * XR NECK SOFT TISSUE 1 VIEW (04/04/2023 8:59 PM CENTERLESS GRINDING MACHINE ADJUSTER) Anatomical Region Laterality Modality NECK Computed Radiogr aphy 04/04/2023 8:59 PM CENTERLESS GRINDING MACHINE ADJUSTER Impressions 04/04/2023 9:01 PM CENTERLESS GRINDING MACHINE ADJUSTER No prevertebral edema. Normal appearance of the epiglottis and larynx. No airway compromise. Mild degenerative changes at C5-C6. Narrative 04/04/2023 9:01 PM CENTERLESS GRINDING MACHINE ADJUSTER For Patients: As a result of the Cures Act, medical imaging exams and procedure reports are released immediately into your electronic medical record. You may view this report before your referring provider. If you have questions, please contact your health care provider. EXAM: XR NECK SOFT TISSUE 1 VIEW LOCATION: [facility] [place] DATE: 04/04/2023 INDICATION: Neck pain, lateral COMPARISON: None. TECHNIQUE: CR Neck Soft Tissue. Procedure Note Vj Peralta MD - 04/04/2023 For Patients: As a result of the s , medical imagingexams and procedure reports are released immediately into your electronicmedical record. You may view this report before your referring provider.If you have questions, please contact your health care provider. EXAM: XR NECK SOFT TISSUE 1 VIEW LOCATION: [facility] [place] DATE: 04/04/2023 INDICATION: Neck pain, lateral COMPARISON: None. TECHNIQUE: CR Neck Soft Tissue. IMPRESSION: No prevertebral edema. Normal appearance of the epiglottis and larynx. Noairway compromise. Mild degenerative changes at C5-C6. David Grier MD GENERAL IMAGING * XR CHEST 2 VIEWS PA AND LATERAL (02/08/2023 5:04 PM CDT) Anatomical Region Laterality Modality CHEST, THORAX, Lung, HEART Compu jalil Radiography 02/08/2023 5:04 PM CDT Impressions 02/08/2023 5:05 PM CDT Negative chest. ??The lungs are clear and there are no pleural effusions. Normal heart size. Narrative 02/08/2023 5:05 PM CDT For Patients: As a result of the s Act, medical imaging exams and procedure reports are released immediately into your electronic medical record. You may view this report before your referring provider. If you have questions, please contact your health care provider. EXAM: XR CHEST 2 VIEWS PA AND LATERAL LOCATION: [facility] [place] DATE: 02/08/2023 INDICATION: Chest pain COMPARISON: None. Procedure Note Brayden Roach MD - 02/08/2023 For Patients: As a result of the Cures Act, medical imagingexams and procedure reports are released immediately into your electronicmedical record. You may view this report before your referring provider.If you have questions, please contact your health care provider. EXAM: XR CHEST 2 VIEWS PA AND LATERAL LOCATION: [facility] [place] DATE: 02/08/2023 INDICATION: Chest pain COMPARISON: None. IMPRESSION: Negative chest. The lungs are clear and there are no pleural effusions.Normal heart size. Reynaldo Arzola MD GENERAL IMAGING * TROPONIN I (02/08/2023 4:56 PM CDT) Pathologist [facility] TROPONIN I 0.014 <0.034: Result is below the 99th percentile upper range limit. ng/mL 02/08/2023 5:32 PM CDT [facility] Blood BLOOD SPECIMEN / Unknown Non-Lab Venipuncture / Unknown 02/08/2023 4:56 PM CDT 02/08/2023 4:56 PM CDT Reynaldo Arzola MD CHEMISTRY Performing Organization Address City/State/[facility] Co de Phone Number [facility] [address] [place] [address] * (ABNORMAL) CBC W PLT NO DIFF (02/08/2023 4:56 PM CDT) Pathologist [facility] WHITE BLOOD COUNT 7.2 4.6 - 10.2 thou/cu mm 02/08/2023 5:11 PM CDT [facility] RED BLOOD COUNT 4.30 4.04 - 6.13 mil/cu mm 02/08/2023 5:11 PM CDT [facility] HEMOGLOBIN 15.0 12.2 - 18.1 g/dL 02/08/2023 5:11 PM CDT [facility] HEMATOCRIT 45.2 37.7 - 53.7 % 02/08/2023 5:11 PM CDT [facility] MCV 105(H) 80 - 97 fL 02/08/2023 5:11 PM CDT [facility] MCH 34.9(H) 27.0 - 31.2 pg 02/08/2023 5:11 PM CDT [facility] MCHC 33.2 31.8 - 35.4 g/dL 02/08/2023 5:11 PM CDT [facility] RDW 14.3 11.6 - 14.8 % 02/08/2023 5:11 PM CDT [facility] PLATELET COUNT 146 142 - 424 thou/cu mm 02/08/2023 5:11 PM CDT [facility] MPV 7.8 6.5 - 11.0 fL 02/08/2023 5:11 PM CDT [facility] Blood BLOOD SPECIMEN / Unknown Non-Lab Venipuncture / Unknown 02/08/2023 4:56 PM CDT 02/08/2023 4:56 PM CDT Reynaldo Arzola MD HEMATOLOGY [facility] [place] [address] [place] [address] * (ABNORMAL) BASIC METABOLIC PANEL (02/08/2023 4:56 PM CDT) SODIUM 136(L) 137 - 145 mmol/L 02/08/2023 5:17 PM CDT [facility] POTASSIUM 3.8 3.5 - 5.1 mmol/L 02/08/2023 5:17 PM CDT [facility] CHLORIDE 101 98 - 107 mmol/L 02/08/2023 5:17 PM CDT [facility] CO2,TOTAL 25 22 - 30 mmol/L 02/08/2023 5:17 PM CDT [facility] ANION GAP 10 8 - 12 02/08/2023 5:17 PM CDT [facility] GLUCOSE,RANDOM 118(H) 74 - 106 mg/dL 02/08/2023 5:17 PM CDT [facility] CALCIUM 9.6 8.4 - 10.2 mg/dL 02/08/2023 5:17 PM CDT [facility] BUN 15 9 - 20 mg/dL 02/08/2023 5:17 PM CDT [facility] CREATININE 0.87 0.66 - 1.25 mg/dL 02/08/2023 5:17 PM CDT [facility] BUN/CREAT RATIO 17 10 - 20 5:17 PM CDT [facility] eGFR >90 >90 mL/min/1.7 3m2 02/08/2023 5:17 PM CDT [facility] Comment:As of 2021, eG FR is calculated by the CKD-EPI creatinine equation without race adjustment. eGFR can be influenced by muscle mass, exercise, and diet. The reported eGFR is an estimation only and is only applicable if the renal function is stable. Blood BLOOD SPECIMEN / Unknown Non-Lab Venipuncture / Unknown 02/08/2023 4:56 PM CDT 02/08/2023 4:56 PM CDT Reynaldo Arzola MD CHEMISTRY [facility] [address] [place] [address] * EKG 12 LEAD (02/08/2023) Reynaldo Arzola MD EKG ORD from Last 3 Months Care Teams Ranger Aide Relationship Specialty Start Date End Date Clinic, No Pcp Or . PCP - General 02/12/22
== END 2023-05-01 13:28 | disposition home or self-care (01) ==
PROVIDERS: Visit Provider Physician Assistant Medical
DX: Z00.00 Encounter for general adult medical examination without abnormal findings (principal); I10 Essential (primary) hypertension; R25.1 Tremor, unspecified; R06.81 Apnea, not elsewhere classified; H91.90 Unspecified hearing loss, unspecified ear
CPT/HCPCS: 80053; 80061; 82077; 82607; 82746; 84425; 84439; 84443

== ENCOUNTER 2023-08-16 15:10 | Outpatient (CLI) | payer OTHER, SELFPAY ==
--- OUTSIDE RECORDS SUMMARY | 2023-08-16 15:20 | XMS_ITS | Referral Summary ---
Author Name Unknown Organization [place] Address [facility] [place] [address] Care Team Providers Care Visual Merchandising Specialist Name Role Phone Clinic - [facility] Primary Ca re Provider Alfredo Cali MD Unavailable + [phone] Allergies Active Allergy Reactions Criticality Noted Date Comments No Known Drug Allergy 04/04/2003 Medications Medication Sig Dispensed Refills Start Date End Date Status RITALIN 10 MG OR TABS 1 TABLET TWICE DAILY BEFORE MEALS 60 0 04/06/2006 Active Active Problems Problem Noted Date Diagnosed Date Alcohol dependence with unsp ecified alcohol-induced disorder 02/12/2018 Abdominal pain, unspecified abdominal location 1 Overview: Previous workup in [place]. Records requested 01/24/18. Attention deficit disorder 04/10/2006 [...] (226 lb 8 oz) 02/12/2018 1:08 PM ACETYLENE PLANT OPERATOR Height 182.9 cm (6') 02/12/2018 1:08 PM ACETYLENE PLANT OPERATOR Body Mass Index 30.72 02/12/2018 1:08 PM ACETYLENE PLANT OPERATOR Plan of Treatment Not on file Procedures Procedure Name Priority Date/Time Associated Diagnosis Comments COMPREHENSIVE METABOLIC PANEL Routine 01/24/2018 12:14 PM CDT Abdominal pain, unspecified abdominal location HCL HIV 1 & 2 ANTIBODY Routine 3 12:34 PM ACETYLENE PLANT OPERATOR from Last 3 Months or Most Recently Relevant to Health Maintenance Results * (ABNORMAL) Comprehensive metabolic panel (01/24/2018 12:14 PM CDT) Sodium 138 133 - 144 mmol/L 01/24/2018 5:17 PM CDT [facility] Potassium 4.0 3.4 - 5.3 mmol/L 01/24/2018 5:17 PM CDT [facility] Chloride 107 94 - 109 mmol/L 01/24/2018 5:17 PM CDT [facility] Carbon Dioxide 25 20 - 32 mmol/L 01/24/2018 5:17 PM CDT [facility] Anion Gap 6 3 - 14 mmol/L 01/24/2018 5:17 PM T [facility] Glucose 63(L) 70 - 99 mg/dL 01/24/2018 5:17 PM CDT [facility] Urea Nitrogen 15 7 - 30 mg/dL 01/24/2018 5:17 PM CDT [facility] Creatinine 1.16 0.66 - 1.25 mg/dL 01/24/2018 5:17 PM CDT [facility] GFR Estimate 70 >60 mL/min/1.7 m2 01/24/2018 5:17 PM CDT [facility] Comment:Non GFR Calc GFR Estimate If Black 85 >60 mL/min/1.7 m2 01/24/2018 5:17 PM CDT [facility] Comment: GFR Calc Calcium 8.5 8.5 - 10.1 mg/dL 01/24/2018 5:17 PM CDT [facility] Bilirubin Total 0.4 0.2 - 1.3 mg/dL 01/24/2018 5:17 PM CDT [facility] Albumin 3.7 3.4 - 5.0 g/dL 01/24/2018 5:17 PM CDT [facility] Protein Total 6.9 6.8 - 8.8 g/dL 01/24/2018 5:17 PM CDT [facility] Alkaline Phosphatase 81 40 - 150 U/L 01/24/2018 5:17 PM CDT [facility] ALT 75(H) 0 - 70 U/L 01/24/2018 5:17 PM CDT [facility] AST 39 0 - 45 U/L 01/24/2018 5:17 PM CDT [facility] Blood specimen (specimen) 01/24/2018 12:14 PM CDT 01/24/2018 12:15 PM CDT Pari Ascencio MD LAB - BLOOD ORDERABLES [facility] [address] [place] [address] * HIV-1/HIV-2, SCREEN (04/29/2002 12:34 PM ACETYLENE PLANT OPERATOR) HIV 1&2 Antibody Negative [facility] 04/29/2002 12:3 4 PM ACETYLENE PLANT OPERATOR 04/29/2002 12:39 PM ACETYLENE PLANT OPERATOR Mati White MD LABORATORY [facility] from Last 3 Months or Most Recently Relevant to Health Maintenance Care Teams Visual Merchandising Specialist Relationship Specialty Start Date End Date Clinic - [facility] [address] [place], [place] [id number] PCP - General 01/24/18 [place] [address] [place] [address] 01/23/18
--- OUTSIDE RECORDS SUMMARY | 2023-08-16 15:20 | XMS_ITS | Clinical Summary ---
Author Name Unknown Organization [employer] [facility] Address [place], [place] [address] Care Team Providers Care Intelligence Engineer Name Role Phone Clinic, No Pcp Or Primary Care Provider Unavaila ble Allergies No known active allergies Medications Medication Sig Dispensed Refills Start Date End Date Status methocarbamoL (ROBAXIN) 750 mg tabletIndications:M yofascial neck pain Take 1 Tablet (750 mg) by mouth 3 times daily if needed for Muscle Spasm. 15 Tablet 04/04/2023 Active methylPREDNISolone (MEDROL DOSEPAK) 4 mg tabletIndications:M yofascial neck pain Take by mouth as instructed per packaging. 21 Tablet 04/04/2023 Active Active Problems No known active problems Social History Tobacco Use Types Packs/Day Years [...] Comments Blood Pressure 156/108 04/04/2023 7:02 PM COMMUNITY HEALTH NURSING DIRECTOR Pulse 93 04/04/2023 7:02 PM COMMUNITY HEALTH NURSING DIRECTOR Temperature 36.2 ??C (97.1 ??F) 04/04/2023 7:02 PM CS T Respiratory Rate 18 04/04/2023 7:02 PM COMMUNITY HEALTH NURSING DIRECTOR Oxygen Saturation 96% 04/04/2023 7:02 PM COMMUNITY HEALTH NURSING DIRECTOR Inhaled Oxygen Concentration - - Weight 97.5 kg (215 lb) 04/04/2023 7:02 PM COMMUNITY HEALTH NURSING DIRECTOR Height 182.9 cm (6') 04/04/2023 7:02 PM COMMUNITY HEALTH NURSING DIRECTOR Body Mass Index 29.16 04/04/2023 7:02 PM COMMUNITY HEALTH NURSING DIRECTOR Plan of Treatment Health Maintenance Due Date Last Done Comments Tdap 1990 Depression screening for age 12+ 1991 HIV for age 15-65 1994 Hepatitis C screening for ag e 18-79 1997 Tetanus booster 1999 Lipids for age 35-44 2014 BMI (ht and wt on same day) for age 18+ 11/08/2017 11/08/2016 COVID-19 vaccine series (2022-24 season) 2022 Influenza for age 9-49 12/10/2023 Pneumococcal series for age 6-64 Aged Out No longer eligible based on patient's age to complete this topic Care Teams Intelligence Engineer Relationship Specialty Start Date End Date Clinic, No Pcp Or . PCP - General 02/12/22
--- OUTSIDE RECORDS SUMMARY | 2023-08-16 15:20 | XMS_ITS | Clinical Summary ---
Author Name Unknown Organization [facility] [place] Address [facility] [place] [address] Care Team Providers Care Orchestra Director Name Role Phone Clinic - [facility] Primary Ca re Provider Alfredo Cali MD Unavailable + [phone] Allergies Active Allergy Reactions Criticality Noted Date Comments No Known Drug Allergy 04/04/2003 Medications Medication Sig Dispensed Refills Start Date End Date Status RITALIN 10 MG OR TABS 1 TABLET TWICE DAILY BEFORE MEALS 60 0 04/06/2006 Active Active Problems Problem Noted Date Diagnosed Date Alcohol dependence with unsp ecified alcohol-induced disorder 02/12/2018 Abdominal pain, unspecified abdominal location 1 Overview: Previous workup in [place]. Records requested 01/24/18. Attention deficit disorder 04/10/2006 [...] (226 lb 8 oz) 02/12/2018 1:08 PM BORING INSPECTOR Height 182.9 cm (6') 02/12/2018 1:08 PM BORING INSPECTOR Body Mass Index 30.72 02/12/2018 1:08 PM BORING INSPECTOR Plan of Treatment Health Maintenance Due Date Last Done Comments ADVANCE CARE PLANNING 1979 ANNUAL REVIEW OF HM ORDERS 1979 YEARLY PREVENTIVE VISIT 1979 Pneumococcal Vaccine: Pediat rics (0 to 5 Years) and At-Risk Patients (6 to 64 Years) (1 of 2 - PCV) 1985 HEPATITIS C SCREENING 1997 HEPATITIS B IMMUNIZATION (1 of 3 - 19+ 3-dose series) 1998 DTAP/TDAP/TD IMMUNIZATION (1 - Tdap) 2004 LIPID 2019 GLUCOSE 01/24/2021 01/24/2018 COVID-19 Vaccine (1 - 2022-2 4 season) 2022 PHQ-2 (once per calendar year) 2023 INFLUENZA VACCINE (Season Ended) 2023 HIV SCREENING Completed 04/29/2002 HPV IMMUNIZATION [...] & 2 ANTIBODY Routine 3 12:34 PM BORING INSPECTOR from Last 3 Months or Most Recently Relevant to Health Maintenance Results * (ABNORMAL) Comprehensive metabolic panel (01/24/2018 12:14 PM CDT) [facility] Sodium 138 133 - 144 mmol/L 01/24/2018 5:17 PM CDT [facility] Potassium 4.0 3.4 - 5.3 mmol/L 01/24/2018 5:17 PM CDT [facility] Chloride 107 94 - 109 mmol/L 01/24/2018 5:17 PM CDT [facility] Carbon Dioxide 25 20 - 32 mmol/L 01/24/2018 5:17 PM CDT [facility] Anion Gap 6 3 - 14 mmol/L 01/24/2018 5:17 PM CDT [facility] Glucose 63(L) 70 - 99 mg/dL 01/24/2018 5:17 PM CDT [facility] Urea Nitrogen 15 7 - 30 mg/dL 01/24/2018 5:17 PM CDT [facility] Creatinine 1.16 0.66 - 1.25 mg/dL 01/24/2018 5:17 PM CDT [facility] GFR Estimate 70 >60 mL/min/1.7 m2 01/24/2018 5:17 PM CDT [facility] Comment:Non GFR Calc GFR Estimate If Black 85 >60 mL/min/1.7 m2 01/24/2018 5:17 PM CDT [facility] Comment: GFR Calc Calcium 8.5 8.5 - 10.1 mg/dL 01/24/2018 5:17 PM CDT [facility] Bilirubin Total 0.4 0.2 - 1.3 mg/dL 01/24/2018 5:17 PM CDT [facility] Albumin 3.7 3.4 - 5.0 g/dL 01/24/2018 5:17 PM CDT [facility] Protein Total 6.9 6.8 - 8.8 g/dL 01/24/2018 5:17 PM CDT [facility] Alkaline Phosphatase 81 40 - 150 U/L 01/24/2018 5:17 PM CDT [facility] ALT 75(H) 0 - 70 U/L 01/24/2018 5:17 PM CDT [facility] AST 39 0 - 45 U/L 01/24/2018 5:17 PM CDT [facility] Blood specimen (specimen) 01/24/2018 12:14 PM CDT 01/24/2018 12:15 PM CDT Pari Ascencio MD LAB - BLOOD ORDERABLES [facility] [address] [place] [address] * HIV-1/HIV-2, SCREEN (04/29/2002 12:34 PM BORING INSPECTOR) HIV 1&2 Antibody Negative NEG [facility] 04/29/2002 12:3 4 PM BORING INSPECTOR 04/29/2002 12:39 PM BORING INSPECTOR Mati White MD LABORATORY [facility] from Last 3 Months or Most Recently Relevant to Health Maintenance Care Teams Orchestra Director Relationship Specialty Start Date End Date Clinic - [facility] [address] [place] [address] PCP - General 01/24/18 [place] [address] [place] [address] 01/23/18
--- OUTSIDE RECORDS SUMMARY | 2023-08-16 15:20 | XMS_ITS | Referral Summary ---
Author Name Unknown Organization [facility] Address [address] [place] [address] Care Team Providers Care Felt Cementer Name Role Phone Blake, Primary Care Provider Unavailabl e Clinic, No Primary Unavailable Unavailable Encounters Date Type Department Care Team Description 06/26/2023 4:00 PM CDT Office Visit [facility] Neurology [address] [place] [address] Christofer Quigley MD Abnormal MRI of head (Primary Dx); Dizziness; Entrapment of right ulnar nerve from Last 3 Months Allergies No known active allergies Medications Medication Sig Dispensed Refills Start Date End Date Status cyanocobalamin 1,000 mcg oral tablet Take 1 tablet (1,000 mcg) by mouth once daily. 05/04/2023 Active sertraline (ZOLOFT) 50 mg oral tablet Take 1 tablet (50 mg) by mouth once daily. 06/04/2023 Active thiamine hcl 100 mg oral tablet Take 1 tablet (100 mg) by mouth once daily. 05/04/2023 Active candesartan (ATACAND) 16 mg oral Tab Take 1 tablet (16 mg) by mouth once daily. 30 tablet 5 06/26/2023 Active Active Problems Problem Noted Date Diagnosed [...] 11:23 AM C DT Respiratory Rate 14 06/26/2023 4:04 PM CDT Oxygen Saturation 95% 08/15/2022 12:45 PM CDT Inhaled Oxygen Concentration - - Weight 95.3 kg (210 lb) 06/26/2023 4:04 PM CDT Height 180.3 cm (5' 11) 06/26/2023 4:04 PM CDT Body Mass Index 29.29 06/26/2023 4:04 PM CDT Plan of Treatment Not on file Care Teams Felt Cementer Relationship Specialty Start Date End Date None, PCP - General 08/15/22 Clinic, No Primary PCP - Primary Care Clinic 08/15/22
--- OUTSIDE RECORDS SUMMARY | 2023-08-16 15:20 | XMS_ITS | Encounter Summary ---
Author Name Unknown Organization [facility] Address [address] [place] [address] Care Team Providers Care Pension Adviser Name Role Phone Blake, Primary Care Provider Unavailabl e Clinic, No Primary Unavailable Unavailable Reason for Referral * (Routine) - Open Specialty Diagnoses / Procedures Referred By Jd kong Referred To Contact Diagnoses Abnormal MRI of head Procedures MRI BRAIN W/O&W CON Christofer Quigley MD [address] [place] [id number] Referral ID Status Reason Start Date Expiration Date Visits Re quested Visits Authorized [id number] Open 06/26/2023 1 1 Reason for Visit * Reason Comments Follow up Encounter Details Date Type Department Care Team (Late st Contact Info) Description 06/26/2023 4:00 PM CDT Office Visit [facility] [address] [phone] Christofer Quigley MD [address] [place] [address] [place] [id number] Abnormal MRI of head (Primary Dx); Dizziness; Entrapment of right ulnar nerve Social History Tobacco Use Types Packs/Day Years [...] - Temperature - - Respiratory Rate 14 06/26/2023 4:04 PM CDT Oxygen Saturation - - Inhaled Oxygen Concentration - - Weight 95.3 kg (210 lb) 06/26/2023 4:04 PM CDT Height 180.3 cm (5' 11) 06/26/2023 4:04 PM CDT Body Mass Index 29.29 06/26/2023 4:04 PM CDT documented in this encounter Patient Instructions * Patient Instructions* Christofer Quigley MD - 06/26/2023 4:00 PM CDT Start candesartan, take a HALF pill once a day with food for one week Let me know if any issues such as worsened lightheadedness or nausea If you are doing ok, then after one week, increase to one whole pill once a day This will take time to work, please give it at least 6-8 weeks By then, your headaches should be doing better, if not, we need to follow up and think of an alternative plan documented in this encounter Progress Notes * Christfoer Quigley MD - 06/26/2023 4:00 PM CDT History of Present Illness: Patient was last seen 01/10/2023, we discussed using venlafaxine for headaches and dizziness and theanxiety. An EMG was ordered for his numbness, we discussed results over the phone. He was going to use elbow splints for the ulnar nerve compression at the elbow, though he also wanted to see a surgeon about this issue. He is having lots of issues with the arms He says that when at PT at [facility] 2 weeks ago, I got completely out of it he felt very dizzy. He was too dizzy sitting up. He was able to do this last Monday without issues. He has happened with this issue before, like when he works with [employer] and [employer]. He never really started venlafaxine. Now he is on sertraline. He continues with daily headaches, but most of the time I can get through them. He will be getting some prism glasses from his neuro-intel recruiter Medications: Current Outpatient Medications on File Prior to Visit Medication Sig Dispense Refill amitriptyline (ELAVIL) 10 mg oral tablet TAKE 3 TABLETS (30 MG) BY MOUTH AT BEDTIME 90 tablet 5 cyanocobalamin 1,000 mcg oral tablet Take 1 tablet (1,000 mcg) by mouth once daily. omeprazole (PRILOSEC) 40 mg oral delayed release capsule Take 1 capsule (40 mg) by mouth once daily. predniSONE (DELTASONE) 20 mg oral tablet Take 1 tablet (20 mg) by mouth Twice a Day. venlafaxine ER (EFFEXOR XR) 150 mg oral extended release capsule 24 HR Take 1 capsule by mouth daily with food 90 capsule 3 No current facility-administered medications on file prior to visit. Allergies: No Known Allergies Past Medical History: Past Medical History: Diagnosis Date Anxiety Depression Headache Hearing loss Injury of head Memory difficulty Sleeping difficulty Work related injury Impression/Recommendations: 43 year old male presents as a follow up. He has noted a variety of symptoms since a head injury (without LOC) last August. He has worked with PT/OT, MRI was unremarkable though an incidental finding was discovered and will repeat the scan to ensure stability (likely an irrelevant benign vascular lesion). He never did take venlafaxine consistently (written for headaches and dizziness, also with an eye to treat anxiety, which is significant). Now he is on sertraline, though not consistent with thiseither which we discussed was important. For the headaches, will try candesartan. I had referred him to ortho given the right ulnar nerve compression suggested by EMG. I asked patient to contact my office if they do not hear about the results of testing. This is to ensure that our office received records of the results. I spent 49 minutes on the date of encounter with the patient and before and after the visit on activities detailed in the above note which may include reviewing the EMR, documenting clinical information, and communicating with other health assisted living care manager. Christofer Quigley MD documented in this encounter Plan of Treatment Scheduled Orders Name Type Priority Associated Diagnoses Orde r Schedule MRI BRAIN W/O&W CON Imaging Routine Abnormal MRI of head Expected: 06/26/2023, Expires: 08/25/2024 documented as of this encounter Visit Diagnoses Diagnosis Abnormal MRI of head- Primary Nonspecific (abnormal) findings on radiological and other examination of skull and head Dizziness Dizziness and giddiness Entrapment of right ulnar nerve documented in this encounter Care Teams Pension Adviser Relationship Specialty Start Date End Date None, PCP - General 08/15/22 Clinic, No Primary PCP - Primary Care Clinic 08/15/22 documented as of this encounter
--- OUTSIDE RECORDS SUMMARY | 2023-08-16 15:20 | XMS_ITS | Clinical Summary ---
Author Name Unknown Organization [facility] Address [address] [place] [address] Care Team Providers Care Vault Clerk Name Role Phone Unassigned, Provider Primary Care Provider Unava ilable Source Comments You are receiving this document as you are listed as the primary care provider,follow-up provider, or the patient has been referred to you for consultation.This is in compliance with the Medicare and[facility] EHR Incentive Program,which states Providers who transition [...] Comments Hep C Screening (Preventive Services) 1979 HIV Screening (Preventive Services) 1995 Adult Preventive Visit 1997 DTaP/Tdap/Td (1 - Tdap) 1998 HepB (1) 1998 Cholesterol 2014 COVID-19 Vaccine ( - 2022-2 4 season) 2022 Influenza (Season Ended) 2023 Zoster/Shingles (1 of 2) 2029 HPV Vaccine [...] age to complete this topic Care Teams Vault Clerk Relationship Specialty Start Date End Date Unassigned, Provider [address] [place] [address] PCP - General 06/10/00
--- OUTSIDE RECORDS SUMMARY | 2023-08-16 15:20 | XMS_ITS | Clinical Summary ---
Author Name Unknown Organization [facility] Address [facility] [place] [address] Care Team Providers Care Branch Library Clerk Name Role Phone Blake, Md Primary Care Provider [facility] Clinic, No Primary Unavailable Unavailable Allergies [...] updated by automated process. Provider to review Encounters Date Type Department Care Team Description 06/26/2023 4:00 PM CDT Office Visit [email or web address] of Neurology [address] [place] [address] Christofer Quigley MD Abnormal MRI of head (Primary Dx); Dizziness; Entrapment of right ulnar nerve from Last 3 Months Family History Medical History Relation Comments Stroke [...] 06/26/2023 4:04 PM CDT Plan of Treatment Health Maintenance Due Date Last Done Comments Diabetes Screening 1979 Hepatitis C Screening 1979 Lipid Screening 1979 Anxiety Screening (GENE-2) 1980 Depression Assessment (PHQ-2) 1980 Adult Tetanus Booster 1998 COVID-19 Vaccine (2022-2 4 season) 2022 Influenza Vaccine (Season Ended) 2023 Pneumococcal <65 Aged Out No longer e ligible based on patient's age to complete this topic Care Teams Branch Library Clerk Relationship Specialty Start Date End Date None, PCP - General 08/15/22 Clinic, No Primary PCP - Primary Care Clinic 08/15/22
== END 2023-08-16 15:11 | disposition home or self-care (01) ==
LOC: LKVREF 15:18
PROVIDERS: PCP Physician Assistant Medical; Visit Provider Physician Assistant Medical
DX: I10 Essential (primary) hypertension (principal); F10.10 Alcohol abuse, uncomplicated
CPT/HCPCS: 80053

== ENCOUNTER 2023-08-30 11:55 | Outpatient (CLI) | payer OTHER, SELFPAY ==
--- OUTSIDE RECORDS SUMMARY | 2023-08-30 11:57 | XMS_ITS | Clinical Summary ---
Author Organization [facility] Address [address] [place] [address] Care Team Providers Care Yeast Cake Cutter Name Role Phone Clinic - [facility] Primary Ca re Provider Alfredo Cali MD Unavailable + [phone] Allergies Active Allergy Reactions Criticality Noted Date Comments No Known Drug Allergy 04/04/2003 Medications Medication Sig Dispensed Refills Start Date End Date Status RITALIN 10 MG OR TABS 1 TABLET TWICE DAILY BEFORE MEALS 60 0 04/06/2006 Active Active Problems Problem Noted Date Diagnosed Date Alcohol dependence with unsp ecified alcohol-induced disorder 02/12/2018 Abdominal pain, unspecified abdominal location 1 Overview: Previous workup in [place]. Records requested 01/24/18. Attention deficit disorder 04/10/2006 [...] (226 lb 8 oz) 02/12/2018 1:08 PM DOORS PREFITTER Height 182.9 cm (6') 02/12/2018 1:08 PM DOORS PREFITTER Body Mass Index 30.72 02/12/2018 1:08 PM DOORS PREFITTER Plan of Treatment Health Maintenance Due Date [...] & 2 ANTIBODY Routine 3 12:34 PM DOORS PREFITTER from Last 3 Months or Most Recently Relevant to Health Maintenance Results * (ABNORMAL) Comprehensive metabolic panel (01/24/2018 12:14 PM CDT) [facility] Sodium 138 133 - 144 mmol/L 01/24/2018 5:17 PM CDT [facility] Potassium 4.0 3.4 - 5.3 mmol/L 01/24/2018 5:17 PM T [facility] Chloride 107 94 - 109 mmol/L 01/24/2018 5:17 PM T [facility] Carbon Dioxide 25 20 - 32 mmol/L 01/24/2018 5:17 PM T [facility] Anion Gap 6 3 - 14 mmol/L 01/24/2018 5:17 PM CDT [facility] Glucose 63(L) 70 - 99 mg/dL 01/24/2018 5:17 PM T [facility] Urea Nitrogen 15 7 - 30 mg/dL 01/24/2018 5:17 PM T [facility] Creatinine 1.16 0.66 - 1.25 mg/dL 01/24/2018 5:17 PM CDT [facility] GFR Estimate 70 >60 mL/min/1.7 m2 01/24/2018 5:17 PM T [facility] Comment:Non GFR Calc GFR Estimate If Black 85 >60 mL/min/1.7 m2 01/24/2018 5:17 PM T [facility] Comment: GFR Calc Calcium 8.5 8.5 - 10.1 mg/dL 01/24/2018 5:17 PM T [facility] Bilirubin Total 0.4 0.2 - 1.3 mg/dL 01/24/2018 5:17 PM T [facility] Albumin 3.7 3.4 - 5.0 g/dL 01/24/2018 5:17 PM CDT [facility] Protein Total 6.9 6.8 - 8.8 g/dL 01/24/2018 5:17 PM T [facility] Alkaline Phosphatase 81 40 - 150 U/L 01/24/2018 5:17 PM T [facility] ALT 75(H) 0 - 70 U/L 01/24/2018 5:17 PM CDT [facility] AST 39 0 - 45 U/L 01/24/2018 5:17 PM CDT [facility] Blood specimen (specimen) 01/24/2018 12:14 PM CDT 01/24/2018 12:15 PM CDT Pari Ascencio MD LAB - BLOOD ORDERABLES [facility] [address] [place] [address] * HIV-1/HIV-2, SCREEN (04/29/2002 12:34 PM DOORS PREFITTER) HIV 1&2 Antibody Negative NEG [facility] 04/29/2002 12:3 4 PM DOORS PREFITTER 04/29/2002 12:39 PM DOORS PREFITTER Mati White MD LABORATORY [facility] LAB[facility] from Last 3 Months or Most Recently Relevant to Health Maintenance Care Teams Yeast Cake Cutter Relationship Specialty Start Date End Date Clinic - [facility] [address] [place] [address] PCP - General 01/24/18 [place] [address] [place] [address] 01/23/18
--- OUTSIDE RECORDS SUMMARY | 2023-08-30 11:57 | XMS_ITS | Clinical Summary ---
Author Organization [facility] Address [address], [place] [address] Care Team Providers Care Advertising Editor Name Role Phone Unassigned, Provider Primary Care Provider Unava ilable Source Comments You are receiving this document as you are listed as the primary care provider,follow-up provider, or the patient has been referred to you for consultation.This is in compliance with the Medicare and[facility] EHR Incentive Program,which states Providers who transition their patient to another setting of careor provider of care or refers their patient to another provider of care shouldprovide summary care record for each transition of care or referral. [facility] Allergies No known active allergies Medications No [...] HepB (1) 1998 Cholesterol 2014 COVID-19 Vaccine (2022-2 4 season) 2022 Influenza (Season Ended) 2023 [...] age to complete this topic Care Teams Advertising Editor Relationship Specialty Start Date End Date Unassigned, Provider [address] [place] [id number] PCP - General 06/10/00
--- OUTSIDE RECORDS SUMMARY | 2023-08-30 11:57 | XMS_ITS | Referral Summary ---
Author Organization [facility] Address [address] [place] [address] Care Team Providers Care Leadite Heater Name Role Phone Clinic - [facility] Primary Ca re Provider Alfredo Cali MD Unavailable + [phone] Allergies Active Allergy Reactions Criticality Noted Date Comments No Known Drug Allergy 04/04/2003 Medications Medication Sig Dispensed Refills Start Date End Date Status RITALIN 10 MG OR TABS 1 TABLET TWICE DAILY BEFORE MEALS 60 0 04/06/2006 Active Active Problems Problem Noted Date Diagnosed Date Alcohol dependence with unsp ecified alcohol-induced disorder 02/12/2018 Abdominal pain, unspecified abdominal location 1 Overview: Previous workup in [place]. Records requested 01/24/18. Attention deficit disorder 04/10/2006 [...] (226 lb 8 oz) 02/12/2018 1:08 PM WOODS LABORER Height 182.9 cm (6') 02/12/2018 1:08 PM WOODS LABORER Body Mass Index 30.72 02/12/2018 1:08 PM WOODS LABORER Plan of Treatment Not on file Procedures Procedure Name Priority Date/Time Associated Diagnosis Comments COMPREHENSIVE METABOLIC PANEL Routine 01/24/2018 12:14 PM CDT Abdominal pain, unspecified abdominal location HCL HIV 1 & 2 ANTIBODY Routine 3 12:34 PM WOODS LABORER from Last 3 Months or Most Recently Relevant to Health Maintenance Results * (ABNORMAL) Comprehensive metabolic panel (01/24/2018 12:14 PM CDT) Sodium 138 133 - 144 mmol/L 01/24/2018 5:17 PM CDT [facility] Potassium 4.0 3.4 - 5.3 mmol/L 01/24/2018 5:17 PM CDT [facility] Chloride 107 94 - 109 mmol/L 01/24/2018 5:17 PM T [facility] Carbon Dioxide 25 20 - 32 mmol/L 01/24/2018 5:17 PM CDT [facility] Anion Gap 6 3 - 14 mmol/L 01/24/2018 5:17 PM T [facility] Glucose 63(L) 70 - 99 mg/dL 01/24/2018 5:17 PM T [facility] Urea Nitrogen 15 7 - 30 mg/dL 01/24/2018 5:17 PM T [facility] Creatinine 1.16 0.66 - 1.25 mg/dL 01/24/2018 5:17 PM CDT [facility] GFR Estimate 70 >60 mL/min/1.7 m2 01/24/2018 5:17 PM CDT [facility] Comment:Non GFR Calc GFR Estimate If Black 85 >60 mL/min/1.7 m2 01/24/2018 5:17 PM CDT [facility] Comment: GFR Calc Calcium 8.5 8.5 - 10.1 mg/dL 01/24/2018 5:17 PM CDT [facility] Bilirubin Total 0.4 0.2 - 1.3 mg/dL 01/24/2018 5:17 PM CDT [facility] Albumin 3.7 3.4 - 5.0 g/dL 01/24/2018 5:17 PM CDT [facility] Protein Total 6.9 6.8 - 8.8 g/dL 01/24/2018 5:17 PM CDT [facility] Alkaline Phosphatase 81 40 - 150 U/L 01/24/2018 5:17 PM CDT [facility] ALT 75(H) 0 - 70 U/L 01/24/2018 5:17 PM CDT [facility] AST 39 0 - 45 U/L 01/24/2018 5:17 PM CDT [facility] Blood specimen (specimen) 01/24/2018 12:14 PM CDT 01/24/2018 12:15 PM CDT Pari Ascencio MD LAB - BLOOD ORDERABLES [facility] [address] [place] [address] * HIV-1/HIV-2, SCREEN (04/29/2002 12:34 PM WOODS LABORER) HIV 1&2 Antibody Negative NEG [facility] 04/29/2002 12:3 4 PM WOODS LABORER 04/29/2002 12:39 PM WOODS LABORER Mati White MD LABORATORY [facility] from Last 3 Months or Most Recently Relevant to Health Maintenance Care Teams Leadite Heater Relationship Specialty Start Date End Date Clinic - [facility] [address] [place], [place] [phone] PCP - General 01/24/18 [place] [address] [place] [address] 01/23/18
--- OUTSIDE RECORDS SUMMARY | 2023-08-30 11:57 | XMS_ITS | Encounter Summary ---
Author Organization [facility] Address [address] [place] [address] Care Team Providers Care Wig Comber Name Role Phone None, Primary Care Provider Unavailabl e Clinic, No Primary Unavailable Unavailable Reason for Referral * (Routine) - Open Specialty Diagnoses / Procedures Referred By Jd kong Referred To Contact Diagnoses Abnormal MRI of head Procedures MRI BRAIN W/O&W CON Christofer Quigley MD [address] [place] [address] Referral ID Status Reason Start Date Expiration Date Visits Re quested Visits Authorized [id number] Open 06/26/2023 1 1 Reason for Visit * Reason Comments Follow up Encounter Details Date Type Department Care Team (Late st Contact Info) Description 06/26/2023 4:00 PM CDT Office Visit [facility] [address] [phone] Chrsitofer Quigley MD [address] [place] [address] [place] [address] [phone] Abnormal MRI of head (Primary Dx); Dizziness; [...] Progress Notes * Christofer Quigley MD - 06/26/2023 4:00 PM [...] He says that when at PT at [place] 2 weeks ago, I got completely out of it he felt very dizzy. He was too dizzy sitting up. He was able to do this last Monday without issues. He has happened with this issue before, like when he works with [employer]. He never really started venlafaxine. Now he is on sertraline. He continues with daily headaches, but most of the time I can get through them. He will be getting some prism glasses from his neuro-rfid specialist Medications: Current Outpatient Medications on File Prior [...] clinical information, and communicating with other health child adolescent care. Christofer Quigley MD documented in this [...] nerve documented in this encounter Care Teams Wig Comber Relationship Specialty Start Date End Date None, PCP - General 08/15/22 Clinic, No Primary PCP - Primary Care Clinic 08/15/22 documented as of this encounter
--- OUTSIDE RECORDS SUMMARY | 2023-08-30 11:57 | XMS_ITS | Referral Summary ---
Author Organization [facility] Address [address] [place] [address] Care Team Providers Care Alum Mixer Name Role Phone None, Md Primary Care Provider Unavailabl e Clinic, No Primary Unavailable Unavailable Encounters Date Type Department Care Team Description 06/26/2023 4:00 PM CDT Office Visit [facility] [address] [place] [address] Christofer Quigley MD Abnormal MRI [...] of Treatment Not on file Care Teams Alum Mixer Relationship Specialty Start Date End Date None, PCP - General 08/15/22 Clinic, No Primary PCP - Primary Care Clinic 08/15/22
--- OUTSIDE RECORDS SUMMARY | 2023-08-30 11:57 | XMS_ITS | Clinical Summary ---
Author Organization [facility] Address [facility] [place] [address] Care Team Providers Care Baker Test Name Role Phone None, Md Primary Care Provider [facility] Clinic, No Primary Unavailable Unavailable Allergies [...] Description 06/26/2023 4:00 PM CDT Office Visit [facility] [address] [place] [address] Christofer Quigley MD Abnormal MRI [...] age to complete this topic Care Teams Baker Test Relationship Specialty Start Date End Date None, PCP - General 08/15/22 Clinic, No Primary PCP - Primary Care Clinic 08/15/22
--- OUTSIDE RECORDS SUMMARY | 2023-08-30 11:57 | XMS_ITS | Clinical Summary ---
Author Organization [facility] Address [place], [place] [address] Care Team Providers Care Grant Officer Name Role Phone Clinic, No Pcp Or [...] Comments Blood Pressure 156/108 04/04/2023 7:02 PM TORSION SPRING COILING MACHINE SETTER Pulse 93 04/04/2023 7:02 PM TORSION SPRING COILING MACHINE SETTER Temperature 36.2 ??C (97.1 ??F) 04/04/2023 7:02 PM CS T Respiratory Rate 18 04/04/2023 7:02 PM TORSION SPRING COILING MACHINE SETTER Oxygen Saturation 96% 04/04/2023 7:02 PM TORSION SPRING COILING MACHINE SETTER Inhaled Oxygen Concentration - - Weight 97.5 kg (215 lb) 04/04/2023 7:02 PM TORSION SPRING COILING MACHINE SETTER Height 182.9 cm (6') 04/04/2023 7:02 PM TORSION SPRING COILING MACHINE SETTER Body Mass Index 29.16 04/04/2023 7:02 PM TORSION SPRING COILING MACHINE SETTER Plan of Treatment Health Maintenance Due Date [...] age to complete this topic Care Teams Grant Officer Relationship Specialty Start Date End Date Clinic, No Pcp Or . PCP - General 02/12/22
== END 2023-08-30 11:56 | disposition home or self-care (01) ==
PROVIDERS: PCP Physician Assistant Medical; Visit Provider Physician Assistant Medical
DX: R79.89 Other specified abnormal findings of blood chemistry (principal); I10 Essential (primary) hypertension; R74.8 Abnormal levels of other serum enzymes; D69.6 Thrombocytopenia, unspecified; E53.8 Deficiency of other specified B group vitamins; F10.10 Alcohol abuse, uncomplicated
CPT/HCPCS: 80053; 84443

== ENCOUNTER 2023-09-06 15:00 | Outpatient (CLI) | payer OTHER, SELFPAY ==
--- NOTE | 2023-09-06 15:00 | CRLHL7_ITS ---
For Patients: As a result of the Century Cures Act, medical imaging exams and procedure reports are released immediately into your electronic medical record. You may view this report before your referring provider. If you have questions, please contact your health care provider. INDICATION: elevated liver function tests COMPARISON: none TECHNIQUE: Real time owusu scale imaging and color Doppler analysis was performed of the right upper quadrant. FINDINGS: The patient`s liver is of normal size and has diffusely increased echogenicity. Main portal vein is patent with antegrade flow. There is a normal appearance of the hepatic IVC and proximal abdominal aorta. There is no evidence of ascites. The gallbladder is of normal size and there is no evidence of intraluminal stones or sludge. The gallbladder wall measures 1.7 mm in thickness. The common bile duct is of normal size and measures 1.9 mm in diameter at the level of the della hepatis. The pancreas appears normal. There is no evidence of a stone or hydronephrosis within the right kidney. The right kidney measures 11.7 cm in length. IMPRESSION: Diffuse hepatic steatosis. Dictated by Mathieu Ríos MD @ 09/07/2023 10:25:07 AM (Electronically Signed)
--- OUTSIDE RECORDS SUMMARY | 2023-09-06 15:03 | XMS_ITS | Encounter Summary ---
Author Organization [facility] Address [address] [place] [address] Care Team Providers Care Photo Technician Name Role Phone None, Primary Care Provider Unavailabl e Clinic, No Primary Unavailable Unavailable Reason for Referral * (Routine) - Open Specialty Diagnoses / Procedures Referred By Jd kong Referred To Contact Diagnoses Abnormal MRI of head Procedures MRI BRAIN W/O&W CON Christofer Quigley MD [address] [place] [address] Referral ID Status Reason Start Date Expiration Date Visits Re quested Visits Authorized [id number] Open 06/26/2023 1 1 Reason for Visit * Reason Comments Follow up Encounter Details Date Type Department Care Team (Late st Contact Info) Description 06/26/2023 4:00 PM CDT Office Visit [facility] [address] [phone] Christofer Quigley MD [address] [place] [address] [place] [phone] Abnormal MRI of head (Primary Dx); Dizziness; [...] He says that when at PT at [place] 2 weeks ago, I got completely out of it he felt very dizzy. He was too dizzy sitting up. He was able to do this last Monday without issues. He has happened with this issue before, like when he works with [employer] and [employer]. He never really started venlafaxine. Now he is on sertraline. He continues with daily headaches, but most of the time I can get through them. He will be getting some prism glasses from his neuro-fishery biologist Medications: Current Outpatient Medications on File Prior [...] clinical information, and communicating with other health career and transition teacher. Christofer Quigley MD documented in this encounter [...] nerve documented in this encounter Care Teams Photo Technician Relationship Specialty Start Date End Date None, PCP - General 08/15/22 Clinic, No Primary PCP - Primary Care Clinic 08/15/22 documented as of this encounter
--- OUTSIDE RECORDS SUMMARY | 2023-09-06 15:03 | XMS_ITS | Clinical Summary ---
Author Organization [facility] Address [facility] [place] [address] Care Team Providers Care Bagman/Woman Name Role Phone None, Md Primary Care Provider [facility] Clinic, No Primary Unavailable Unavailable Allergies [...] Description 06/26/2023 4:00 PM CDT Office Visit [facility] [address] [place] [address] Christofer Quigley MD Abnormal MRI [...] age to complete this topic Care Teams Bagman/Woman Relationship Specialty Start Date End Date None, PCP - General 08/15/22 Clinic, No Primary PCP - Primary Care Clinic 08/15/22
--- OUTSIDE RECORDS SUMMARY | 2023-09-06 15:03 | XMS_ITS | Referral Summary ---
Author Organization [facility] Address [address] [place] [address] Care Team Providers Care Editor News Name Role Phone None, Md Primary Care Provider Unavailabl e Clinic, No Primary Unavailable Unavailable Encounters Date Type Department Care Team Description 06/26/2023 4:00 PM CDT Office Visit [facility] [address] [place] [address] Christofer Quigley MD Abnormal MRI [...] of Treatment Not on file Care Teams Editor News Relationship Specialty Start Date End Date None, PCP - General 08/15/22 Clinic, No Primary PCP - Primary Care Clinic 08/15/22
--- OUTSIDE RECORDS SUMMARY | 2023-09-06 15:03 | XMS_ITS | Clinical Summary ---
Author Organization [facility] Address [address], [place] [address] Care Team Providers Care Shredder Operator Name Role Phone Unassigned, Provider Primary Care Provider Unava ilable Source Comments You are receiving this document as you are listed as the primary care provider,follow-up provider, or the patient has been referred to you for consultation.This is in compliance with the Medicare and[facility] Cent[facility] EHR Incentive Program,which states Providers who transition their patient to another setting of careor provider of care or refers their patient to another provider of care shouldprovide summary care record for each transition of care or referral. [facility] Allergies No known active allergies Medications No [...] age to complete this topic Care Teams Shredder Operator Relationship Specialty Start Date End Date Unassigned, Provider [address] [place] [address] PCP - General 06/10/00
--- OUTSIDE RECORDS SUMMARY | 2023-09-06 15:03 | XMS_ITS | Clinical Summary ---
Author Organization [facility] Address [place], [place] [address] Care Team Providers Care Valve Mechanic Name Role Phone Clinic, No Pcp Or [...] Comments Blood Pressure 156/108 04/04/2023 7:02 PM FOXING CLOSER Pulse 93 04/04/2023 7:02 PM FOXING CLOSER Temperature 36.2 ??C (97.1 ??F) 04/04/2023 7:02 PM CS T Respiratory Rate 18 04/04/2023 7:02 PM FOXING CLOSER Oxygen Saturation 96% 04/04/2023 7:02 PM FOXING CLOSER Inhaled Oxygen Concentration - - Weight 97.5 kg (215 lb) 04/04/2023 7:02 PM FOXING CLOSER Height 182.9 cm (6') 04/04/2023 7:02 PM FOXING CLOSER Body Mass Index 29.16 04/04/2023 7:02 PM FOXING CLOSER Plan of Treatment Health Maintenance Due Date [...] age to complete this topic Care Teams Valve Mechanic Relationship Specialty Start Date End Date Clinic, No Pcp Or . PCP - General 02/12/22
== END 2023-09-06 15:01 | disposition home or self-care (01) ==
LOC: US 15:01
PROVIDERS: PCP Physician Assistant Medical; Visit Provider Physician Assistant Medical
DX: R74.8 Abnormal levels of other serum enzymes (principal); K76.0 Fatty (change of) liver, not elsewhere classified; D69.6 Thrombocytopenia, unspecified; F10.10 Alcohol abuse, uncomplicated; F41.9 Anxiety disorder, unspecified
CPT/HCPCS: 76705

== ENCOUNTER 2023-09-15 19:46 | Outpatient (CLI) | payer OTHER, SELFPAY ==
--- OUTSIDE RECORDS SUMMARY | 2023-10-02 14:35 | XMS_ITS | Clinical Summary ---
Author Organization [facility] Address [address], [place] [address] Care Team Providers Care Purchaser Name Role Phone Unassigned, Provider Primary Care Provider Unava ilable Source Comments You are receiving this document as you are listed as the primary care provider,follow-up provider, or the patient has been referred to you for consultation.This is in compliance with the Medicare and[facility] EHR Incentive Program,which states Providers who transition their patient to another setting of careor provider of care or refers their patient to another provider of care shouldprovide summary care record for each transition of care or referral. [facility] [employer] Allergies No known active allergies Medications No [...] age to complete this topic Care Teams Purchaser Relationship Specialty Start Date End Date Unassigned, Provider [address] [place] [address] PCP - General 06/10/00
--- OUTSIDE RECORDS SUMMARY | 2023-10-02 14:35 | XMS_ITS | Clinical Summary ---
Author Organization [facility] Address [address] [place] [address] Care Team Providers Care Sleeper Cutter Name Role Phone Clinic - [facility] Primary Ca re Provider Alfredo Cali MD Unavailable + [phone] Allergies Active Allergy Reactions Criticality Noted Date Comments No Known Drug Allergy 04/04/2003 Medications Medication Sig Dispensed Refills Start Date End Date Status RITALIN 10 MG OR TABS 1 TABLET TWICE DAILY BEFORE MEALS 60 0 04/06/2006 Active Active Problems Problem Noted Date Diagnosed Date Alcohol dependence with unsp ecified alcohol-induced disorder 02/12/2018 Abdominal pain, unspecified abdominal location 1 Overview: Previous workup in [place]. Records requested 01/24/18. Attention deficit disorder 04/10/2006 [...] (226 lb 8 oz) 02/12/2018 1:08 PM WHOLESALE AND RETAIL MERCHANT Height 182.9 cm (6') 02/12/2018 1:08 PM WHOLESALE AND RETAIL MERCHANT Body Mass Index 30.72 02/12/2018 1:08 PM WHOLESALE AND RETAIL MERCHANT Plan of Treatment Health Maintenance Due Date [...] & 2 ANTIBODY Routine 3 12:34 PM WHOLESALE AND RETAIL MERCHANT from Last 3 Months or Most Recently Relevant to Health Maintenance Results * (ABNORMAL) Comprehensive metabolic panel (01/24/2018 12:14 PM CDT) [facility] Sodium 138 133 - 144 mmol/L 01/24/2018 5:17 PM CDT [facility] Potassium 4.0 3.4 - 5.3 mmol/L 01/24/2018 5:17 PM T [facility] Chloride 107 94 - 109 mmol/L 01/24/2018 5:17 PM T [facility] Carbon Dioxide 25 20 - 32 mmol/L 01/24/2018 5:17 PM T [facility] Anion Gap 6 3 - 14 mmol/L 01/24/2018 5:17 PM CDT [facility] Glucose 63(L) 70 - 99 mg/dL 01/24/2018 5:17 PM T [facility] Urea Nitrogen 15 7 - 30 mg/dL 01/24/2018 5:17 PM T [facility] Creatinine 1.16 0.66 - 1.25 mg/dL 01/24/2018 5:17 PM CDT [facility] GFR Estimate 70 >60 mL/min/1.7 m2 01/24/2018 5:17 PM T [facility] Comment:Non GFR Calc GFR Estimate If Black 85 >60 mL/min/1.7 m2 01/24/2018 5:17 PM T [facility] Comment: GFR Calc Calcium 8.5 8.5 - 10.1 mg/dL 01/24/2018 5:17 PM T [facility] Bilirubin Total 0.4 0.2 - 1.3 mg/dL 01/24/2018 5:17 PM T [facility] Albumin 3.7 3.4 - 5.0 g/dL 01/24/2018 5:17 PM CDT [facility] Protein Total 6.9 6.8 - 8.8 g/dL 01/24/2018 5:17 PM T [facility] Alkaline Phosphatase 81 40 - 150 U/L 01/24/2018 5:17 PM T [facility] ALT 75(H) 0 - 70 U/L 01/24/2018 5:17 PM CDT [facility] AST 39 0 - 45 U/L 01/24/2018 5:17 PM CDT [facility] Blood specimen (specimen) 01/24/2018 12:14 PM CDT 01/24/2018 12:15 PM CDT Pari Ascencio MD LAB - BLOOD ORDERABLES [facility] [address] [place] [address] * HIV-1/HIV-2, SCREEN (04/29/2002 12:34 PM WHOLESALE AND RETAIL MERCHANT) HIV 1&2 Antibody Negative NEG [facility] 04/29/2002 12:3 4 PM WHOLESALE AND RETAIL MERCHANT 04/29/2002 12:39 PM WHOLESALE AND RETAIL MERCHANT Mati White MD LABORATORY [facility] from Last 3 Months or Most Recently Relevant to Health Maintenance Care Teams Sleeper Cutter Relationship Specialty Start Date End Date Clinic - [facility] [address] [place] [address] PCP - General 01/24/18 [place] [address] [place] [address] 01/23/18
--- OUTSIDE RECORDS SUMMARY | 2023-10-02 14:35 | XMS_ITS | Encounter Summary ---
Author Organization [facility] Address [address] [place] [address] Care Team Providers Care Bun Icer Name Role Phone None, Primary Care Provider Unavailabl e Clinic, No Primary Unavailable Unavailable Reason for Referral * (Routine) - Open Specialty Diagnoses / Procedures Referred By Jd kong Referred To Contact Diagnoses Abnormal MRI of head Procedures MRI BRAIN W/O&W CON Christofer Quigley MD [address] [place] [address] Referral ID Status Reason Start Date Expiration Date Visits Re quested Visits Authorized [id number] Open 06/26/2023 1 1 Reason for Visit * Reason Comments Follow up Encounter Details Date Type Department Care Team (Late st Contact Info) Description 06/26/2023 4:00 PM CDT Office Visit [facility] Neurology [address] [phone] Christofer Quigley MD [address] [place] [address] [place] [phone] Abnormal MRI of head (Primary Dx); Dizziness; [...] He says that when at PT at [place] 2 weeks ago, I got completely out of it he felt very dizzy. He was too dizzy sitting up. He was able to do this last Monday without issues. He has happened with this issue before, like when he works with [employer] and [employer]. He never really started venlafaxine. Now he is on sertraline. He continues with daily headaches, but most of the time I can get through them. 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 Christofer Quigley MD documented in this encounter [...] nerve documented in this encounter Care Teams Bun Icer Relationship Specialty Start Date End Date None, PCP - General 08/15/22 Clinic, No Primary PCP - Primary Care Clinic 08/15/22 documented as of this encounter
--- OUTSIDE RECORDS SUMMARY | 2023-10-02 14:35 | XMS_ITS | Referral Summary ---
Author Organization [facility] Address [address] [place] [address] Care Team Providers Care Whizzer Hand Name Role Phone None, Md Primary Care Provider [facility] Clinic, No Primary Unavailable Unavailable Allergies No [...] of Treatment Not on file Care Teams Whizzer Hand Relationship Specialty Start Date End Date None, PCP - General 08/15/22 Clinic, No Primary PCP - Primary Care Clinic 08/15/22
--- OUTSIDE RECORDS SUMMARY | 2023-10-02 14:35 | XMS_ITS | Clinical Summary ---
Author Organization [facility] Address [address] [place] [address] Care Team Providers Care Rope Making Machine Operator Name Role Phone None, Md Primary Care [...] age to complete this topic Care Teams Rope Making Machine Operator Relationship Specialty Start Date End Date None, PCP - General 08/15/22 Clinic, No Primary PCP - Primary Care Clinic 08/15/22
--- OUTSIDE RECORDS SUMMARY | 2023-10-02 14:35 | XMS_ITS | Clinical Summary ---
Author Organization [facility] Address [place], [place] [address] Care Team Providers Care Commodity Industry Analyst Name Role Phone Clinic, No Pcp Or [...] Comments Blood Pressure 156/108 04/04/2023 7:02 PM SALAD BAR CLERK Pulse 93 04/04/2023 7:02 PM SALAD BAR CLERK Temperature 36.2 ??C (97.1 ??F) 04/04/2023 7:02 PM CS T Respiratory Rate 18 04/04/2023 7:02 PM SALAD BAR CLERK Oxygen Saturation 96% 04/04/2023 7:02 PM SALAD BAR CLERK Inhaled Oxygen Concentration - - Weight 97.5 kg (215 lb) 04/04/2023 7:02 PM SALAD BAR CLERK Height 182.9 cm (6') 04/04/2023 7:02 PM SALAD BAR CLERK Body Mass Index 29.16 04/04/2023 7:02 PM SALAD BAR CLERK Plan of Treatment Health Maintenance Due Date [...] age to complete this topic Care Teams Commodity Industry Analyst Relationship Specialty Start Date End Date Clinic, No Pcp Or . PCP - General 02/12/22
--- OUTSIDE RECORDS SUMMARY | 2023-10-02 14:35 | XMS_ITS | Referral Summary ---
Author Organization [facility] Address [address] [place] [address] Care Team Providers Care Manager Lpn Name Role Phone Clinic - [facility] Primary Ca re Provider Alfredo Cali MD Unavailable + [phone] Allergies Active Allergy Reactions Criticality Noted Date Comments No Known Drug Allergy 04/04/2003 Medications Medication Sig Dispensed Refills Start Date End Date Status RITALIN 10 MG OR TABS 1 TABLET TWICE DAILY BEFORE MEALS 60 0 04/06/2006 Active Active Problems Problem Noted Date Diagnosed Date Alcohol dependence with unsp ecified alcohol-induced disorder 02/12/2018 Abdominal pain, unspecified abdominal location 1 Overview: Previous workup in [place]. Records requested 01/24/18. Attention deficit disorder 04/10/2006 [...] (226 lb 8 oz) 02/12/2018 1:08 PM SEC REPORTING CONSULTANT Height 182.9 cm (6') 02/12/2018 1:08 PM SEC REPORTING CONSULTANT Body Mass Index 30.72 02/12/2018 1:08 PM SEC REPORTING CONSULTANT Plan of Treatment Not on file Procedures Procedure Name Priority Date/Time Associated Diagnosis Comments COMPREHENSIVE METABOLIC PANEL Routine 01/24/2018 12:14 PM CDT Abdominal pain, unspecified abdominal location HCL HIV 1 & 2 ANTIBODY Routine 3 12:34 PM SEC REPORTING CONSULTANT from Last 3 Months or Most Recently Relevant to Health Maintenance Results * (ABNORMAL) Comprehensive metabolic panel (01/24/2018 12:14 PM CDT) Sodium 138 133 - 144 mmol/L 01/24/2018 5:17 PM CDT [facility] Potassium 4.0 3.4 - 5.3 mmol/L 01/24/2018 5:17 PM CDT [facility] Chloride 107 94 - 109 mmol/L 01/24/2018 5:17 PM T [facility] Carbon Dioxide 25 20 - 32 mmol/L 01/24/2018 5:17 PM CDT [facility] Anion Gap 6 3 - 14 mmol/L 01/24/2018 5:17 PM T [facility] Glucose 63(L) 70 - 99 mg/dL 01/24/2018 5:17 PM T [facility] Urea Nitrogen 15 7 - 30 mg/dL 01/24/2018 5:17 PM T [facility] Creatinine 1.16 0.66 - 1.25 mg/dL 01/24/2018 5:17 PM CDT [facility] GFR Estimate 70 >60 mL/min/1.7 m2 01/24/2018 5:17 PM CDT [facility] Comment:Non GFR Calc GFR Estimate If Black 85 >60 mL/min/1.7 m2 01/24/2018 5:17 PM CDT [facility] Comment: GFR Calc Calcium 8.5 8.5 - 10.1 mg/dL 01/24/2018 5:17 PM CDT [facility] Bilirubin Total 0.4 0.2 - 1.3 mg/dL 01/24/2018 5:17 PM CDT [facility] Albumin 3.7 3.4 - 5.0 g/dL 01/24/2018 5:17 PM CDT [facility] Protein Total 6.9 6.8 - 8.8 g/dL 01/24/2018 5:17 PM CDT [facility] Alkaline Phosphatase 81 40 - 150 U/L 01/24/2018 5:17 PM CDT [facility] ALT 75(H) 0 - 70 U/L 01/24/2018 5:17 PM CDT [facility] AST 39 0 - 45 U/L 01/24/2018 5:17 PM CDT [facility] Blood specimen (specimen) 01/24/2018 12:14 PM CDT 01/24/2018 12:15 PM CDT Pari Ascencio MD LAB - BLOOD ORDERABLES [facility] [address] [place] [address] * HIV-1/HIV-2, SCREEN (04/29/2002 12:34 PM SEC REPORTING CONSULTANT) HIV 1&2 Antibody Negative NEG [facility] 04/29/2002 12:3 4 PM SEC REPORTING CONSULTANT 04/29/2002 12:39 PM SEC REPORTING CONSULTANT Mati White MD LABORATORY [facility] from Last 3 Months or Most Recently Relevant to Health Maintenance Care Teams Manager Lpn Relationship Specialty Start Date End Date Clinic - [facility] [address] [place], [place] [id number] PCP - General 01/24/18 [place] [address] [place] [address] 01/23/18
== END 2023-09-15 19:47 | disposition home or self-care (01) ==
LOC: NFLDREF 10-02 14:34
PROVIDERS: PCP Physician Assistant Medical; Referring Provider Physician Assistant Medical; Visit Provider Physician Assistant
DX: R10.9 Unspecified abdominal pain (principal)
CPT/HCPCS: 87086

== ENCOUNTER 2023-09-22 10:53 | Outpatient (CLI) | payer OTHER, SELFPAY ==
--- OUTSIDE RECORDS SUMMARY | 2023-09-22 10:55 | XMS_ITS | Referral Summary ---
Author Organization [facility] Address [address] [place] [address] Care Team Providers Care Ring Rolling Machine Operator Name Role Phone Clinic - [facility] Primary Ca re Provider Alfredo Cali MD Unavailable + [phone] Allergies Active Allergy Reactions Criticality Noted Date Comments No Known Drug Allergy 04/04/2003 Medications Medication Sig Dispensed Refills Start Date End Date Status RITALIN 10 MG OR TABS 1 TABLET TWICE DAILY BEFORE MEALS 60 0 04/06/2006 Active Active Problems Problem Noted Date Diagnosed Date Alcohol dependence with unsp ecified alcohol-induced disorder 02/12/2018 Abdominal pain, unspecified abdominal location 1 Overview: Previous workup in [place]. Records requested 01/24/18. Attention deficit disorder 04/10/2006 [...] (226 lb 8 oz) 02/12/2018 1:08 PM FILM DRYING MACHINE OPERATOR Height 182.9 cm (6') 02/12/2018 1:08 PM FILM DRYING MACHINE OPERATOR Body Mass Index 30.72 02/12/2018 1:08 PM FILM DRYING MACHINE OPERATOR Plan of Treatment Not on file Procedures Procedure Name Priority Date/Time Associated Diagnosis Comments COMPREHENSIVE METABOLIC PANEL Routine 01/24/2018 12:14 PM CDT Abdominal pain, unspecified abdominal location HCL HIV 1 & 2 ANTIBODY Routine 3 12:34 PM FILM DRYING MACHINE OPERATOR from Last 3 Months or Most Recently Relevant to Health Maintenance Results * (ABNORMAL) Comprehensive metabolic panel (01/24/2018 12:14 PM CDT) Sodium 138 133 - 144 mmol/L 01/24/2018 5:17 PM CDT [facility] Potassium 4.0 3.4 - 5.3 mmol/L 01/24/2018 5:17 PM CDT [facility] Chloride 107 94 - 109 mmol/L 01/24/2018 5:17 PM T [facility] Carbon Dioxide 25 20 - 32 mmol/L 01/24/2018 5:17 PM CDT [facility] Anion Gap 6 3 - 14 mmol/L 01/24/2018 5:17 PM T [facility] Glucose 63(L) 70 - 99 mg/dL 01/24/2018 5:17 PM T [facility] Urea Nitrogen 15 7 - 30 mg/dL 01/24/2018 5:17 PM T [facility] Creatinine 1.16 0.66 - 1.25 mg/dL 01/24/2018 5:17 PM CDT [facility] GFR Estimate 70 >60 mL/min/1.7 m2 01/24/2018 5:17 PM CDT [facility] Comment:Non GFR Calc GFR Estimate If Black 85 >60 mL/min/1.7 m2 01/24/2018 5:17 PM CDT [facility] Comment: GFR Calc Calcium 8.5 8.5 - 10.1 mg/dL 01/24/2018 5:17 PM CDT [facility] Bilirubin Total 0.4 0.2 - 1.3 mg/dL 01/24/2018 5:17 PM CDT [facility] Albumin 3.7 3.4 - 5.0 g/dL 01/24/2018 5:17 PM CDT [facility] Protein Total 6.9 6.8 - 8.8 g/dL 01/24/2018 5:17 PM CDT [facility] Alkaline Phosphatase 81 40 - 150 U/L 01/24/2018 5:17 PM CDT [facility] ALT 75(H) 0 - 70 U/L 01/24/2018 5:17 PM CDT [facility] AST 39 0 - 45 U/L 01/24/2018 5:17 PM CDT [facility] Blood specimen (specimen) 01/24/2018 12:14 PM CDT 01/24/2018 12:15 PM CDT Pari Ascencio MD LAB - BLOOD ORDERABLES [facility] [address] [place] [address] * HIV-1/HIV-2, SCREEN (04/29/2002 12:34 PM FILM DRYING MACHINE OPERATOR) HIV 1&2 Antibody Negative NEG [facility] 04/29/2002 12:3 4 PM FILM DRYING MACHINE OPERATOR 04/29/2002 12:39 PM FILM DRYING MACHINE OPERATOR Mati White MD LABORATORY [facility] from Last 3 Months or Most Recently Relevant to Health Maintenance Care Teams Ring Rolling Machine Operator Relationship Specialty Start Date End Date Clinic - [facility] [address] [place], [place] [phone] PCP - General 01/24/18 [place] [address] [place] [address] 01/23/18
--- OUTSIDE RECORDS SUMMARY | 2023-09-22 10:55 | XMS_ITS | Referral Summary ---
Author Organization [facility] Address [address] [place] [address] Care Team Providers Care Senior Shipping Clerk Name Role Phone None, Md Primary Care Provider Unavailabl e Clinic, No Primary Unavailable Unavailable Encounters Date Type Department Care Team Description 06/26/2023 4:00 PM CDT Office Visit [facility] [address] [place] [address] Christofer Quigley MD Abnormal MRI [...] of Treatment Not on file Care Teams Senior Shipping Clerk Relationship Specialty Start Date End Date None, PCP - General 08/15/22 Clinic, No Primary PCP - Primary Care Clinic 08/15/22
--- OUTSIDE RECORDS SUMMARY | 2023-09-22 10:55 | XMS_ITS | Clinical Summary ---
Author Organization [facility] Address [address] [address] Care Team Providers Care Studio Camera Operator Name Role Phone Unassigned, Provider Primary Care Provider Unava ilable Source Comments You are receiving this document as you are listed as the primary care provider,follow-up provider, or the patient has been referred to you for consultation.This is in compliance with the Medicare andThe [facility] EHR Incentive Program,which states Providers who transition their patient to another setting of careor provider of care or refers their patient to another provider of care shouldprovide summary care record for each transition of care or referral. [facility] Allergies No known active allergies Medications No [...] age to complete this topic Care Teams Studio Camera Operator Relationship Specialty Start Date End Date Unassigned, Provider [address] [place] [address] PCP - General 06/10/00
--- OUTSIDE RECORDS SUMMARY | 2023-09-22 10:55 | XMS_ITS | Clinical Summary ---
Author Organization [facility] Address [address] [place] [address] Care Team Providers Care Horse Exerciser Name Role Phone Clinic - [facility] Primary Ca re Provider Alfredo Cali MD Unavailable + [phone] Allergies Active Allergy Reactions Criticality Noted Date Comments No Known Drug Allergy 04/04/2003 Medications Medication Sig Dispensed Refills Start Date End Date Status RITALIN 10 MG OR TABS 1 TABLET TWICE DAILY BEFORE MEALS 60 0 04/06/2006 Active Active Problems Problem Noted Date Diagnosed Date Alcohol dependence with unsp ecified alcohol-induced disorder 02/12/2018 Abdominal pain, unspecified abdominal location 1 Overview: Previous workup in [place]. Records requested 01/24/18. Attention deficit disorder 04/10/2006 [...] (226 lb 8 oz) 02/12/2018 1:08 PM HEAD CD REACTOR OPERATOR Height 182.9 cm (6') 02/12/2018 1:08 PM HEAD CD REACTOR OPERATOR Body Mass Index 30.72 02/12/2018 1:08 PM HEAD CD REACTOR OPERATOR Plan of Treatment Health Maintenance Due Date [...] & 2 ANTIBODY Routine 3 12:34 PM HEAD CD REACTOR OPERATOR from Last 3 Months or Most Recently Relevant to Health Maintenance Results * (ABNORMAL) Comprehensive metabolic panel (01/24/2018 12:14 PM CDT) [facility] Sodium 138 133 - 144 mmol/L 01/24/2018 5:17 PM CDT [facility] Potassium 4.0 3.4 - 5.3 mmol/L 01/24/2018 5:17 PM T [facility] Chloride 107 94 - 109 mmol/L 01/24/2018 5:17 PM T [facility] Carbon Dioxide 25 20 - 32 mmol/L 01/24/2018 5:17 PM T [facility] Anion Gap 6 3 - 14 mmol/L 01/24/2018 5:17 PM CDT [facility] Glucose 63(L) 70 - 99 mg/dL 01/24/2018 5:17 PM T [facility] Urea Nitrogen 15 7 - 30 mg/dL 01/24/2018 5:17 PM T [facility] Creatinine 1.16 0.66 - 1.25 mg/dL 01/24/2018 5:17 PM CDT [facility] GFR Estimate 70 >60 mL/min/1.7 m2 01/24/2018 5:17 PM T [facility] Comment:Non GFR Calc GFR Estimate If Black 85 >60 mL/min/1.7 m2 01/24/2018 5:17 PM T [facility] Comment: GFR Calc Calcium 8.5 8.5 - 10.1 mg/dL 01/24/2018 5:17 PM T [facility] Bilirubin Total 0.4 0.2 - 1.3 mg/dL 01/24/2018 5:17 PM T [facility] Albumin 3.7 3.4 - 5.0 g/dL 01/24/2018 5:17 PM CDT [facility] Protein Total 6.9 6.8 - 8.8 g/dL 01/24/2018 5:17 PM T [facility] Alkaline Phosphatase 81 40 - 150 U/L 01/24/2018 5:17 PM T [facility] ALT 75(H) 0 - 70 U/L 01/24/2018 5:17 PM CDT [facility] AST 39 0 - 45 U/L 01/24/2018 5:17 PM CDT [facility] Blood specimen (specimen) 01/24/2018 12:14 PM CDT 01/24/2018 12:15 PM CDT Pari Ascencio MD LAB - BLOOD ORDERABLES [facility] [address] [place] [address] * HIV-1/HIV-2, SCREEN (04/29/2002 12:34 PM HEAD CD REACTOR OPERATOR) HIV 1&2 Antibody Negative NEG [facility] 04/29/2002 12:3 4 PM HEAD CD REACTOR OPERATOR 04/29/2002 12:39 PM HEAD CD REACTOR OPERATOR Mati White MD LABORATORY [facility] from Last 3 Months or Most Recently Relevant to Health Maintenance Care Teams Horse Exerciser Relationship Specialty Start Date End Date Clinic - [facility] [address] [place] [address] PCP - General 01/24/18 [place] [address] [place] [address] 01/23/18
--- OUTSIDE RECORDS SUMMARY | 2023-09-22 10:55 | XMS_ITS | Encounter Summary ---
Author Organization [facility] Address [address] [place] [address] Care Team Providers Care Accessories Repairer Name Role Phone None, Primary Care Provider Unavailabl e Clinic, No Primary Unavailable Unavailable Reason for Referral * (Routine) - Open Specialty Diagnoses / Procedures Referred By Jd kong Referred To Contact Diagnoses Abnormal MRI of head Procedures MRI BRAIN W/O&W CON Christofer Quigley MD [address] [place] [id number] Referral ID Status Reason Start Date Expiration Date Visits Re quested Visits Authorized [id number] Open 06/26/2023 1 1 Reason for Visit * Reason Comments Follow up Encounter Details Date Type Department Care Team (Late st Contact Info) Description 06/26/2023 4:00 PM CDT Office Visit [facility] [address] [phone] Christofer Quigley MD [address] [place] [address] [place] [address] [id number] Abnormal MRI of head (Primary Dx); Dizziness; [...] He says that when at PT at [place] 2 weeks ago, I got completely out of it he felt very dizzy. He was too dizzy sitting up. He was able to do this last Monday without issues. He has happened with this issue before, like when he works with [employer] and [employer]. He never really started venlafaxine. Now he is on sertraline. He continues with daily headaches, but most of the time I can get through them. He will be getting some prism glasses from his neuro-director behavioral health Medications: Current Outpatient Medications on File Prior [...] clinical information, and communicating with other health care associate. Christofer Quigley MD documented in this encounter [...] nerve documented in this encounter Care Teams Accessories Repairer Relationship Specialty Start Date End Date None, PCP - General 08/15/22 Clinic, No Primary PCP - Primary Care Clinic 08/15/22 documented as of this encounter
--- OUTSIDE RECORDS SUMMARY | 2023-09-22 10:55 | XMS_ITS | Clinical Summary ---
Author Organization [facility] Address [place], [place] [address] Care Team Providers Care Huc Ob Name Role Phone Clinic, No Pcp Or [...] Comments Blood Pressure 156/108 04/04/2023 7:02 PM TELEVISION ENGINEERING TEACHER Pulse 93 04/04/2023 7:02 PM TELEVISION ENGINEERING TEACHER Temperature 36.2 ??C (97.1 ??F) 04/04/2023 7:02 PM CS T Respiratory Rate 18 04/04/2023 7:02 PM TELEVISION ENGINEERING TEACHER Oxygen Saturation 96% 04/04/2023 7:02 PM TELEVISION ENGINEERING TEACHER Inhaled Oxygen Concentration - - Weight 97.5 kg (215 lb) 04/04/2023 7:02 PM TELEVISION ENGINEERING TEACHER Height 182.9 cm (6') 04/04/2023 7:02 PM TELEVISION ENGINEERING TEACHER Body Mass Index 29.16 04/04/2023 7:02 PM TELEVISION ENGINEERING TEACHER Plan of Treatment Health Maintenance Due Date [...] age to complete this topic Care Teams Huc Ob Relationship Specialty Start Date End Date Clinic, No Pcp Or . PCP - General 02/12/22
--- OUTSIDE RECORDS SUMMARY | 2023-09-22 10:55 | XMS_ITS | Clinical Summary ---
Author Organization [facility] Address [facility] [place] [address] Care Team Providers Care Laundry Tub Maker Name Role Phone None, Md Primary Care Provider [facility] Clinic, No Primary Unavailable Unavailable Allergies No [...] Description 06/26/2023 4:00 PM CDT Office Visit [facility] of Neurology [address] [place] [phone] Christofer Quigley MD Abnormal MRI [...] age to complete this topic Care Teams Laundry Tub Maker Relationship Specialty Start Date End Date None, PCP - General 08/15/22 Clinic, No Primary PCP - Primary Care Clinic 08/15/22
--- NOTE | 2023-09-22 11:00 | CRLHL7_ITS ---
For Patients: As a result of the Century Cures Act, medical imaging exams and procedure reports are released immediately into your electronic medical record. You may view this report before your referring provider. If you have questions, please contact your health care provider. INDICATION: Left-sided abdominal pain constipation TECHNIQUE: CT abdomen and pelvis with 106 mL Isovue 370 COMPARISON: None. FINDINGS: Lower chest: Unremarkable. Liver: Normal in size and attenuation. No suspicious masses. Gallbladder and bile ducts: No stones or inflammation. No biliary dilatation. Pancreas: Unremarkable. No mass or inflammation. Spleen: Splenomegaly measuring 16 cm. Adrenal glands: Normal in size. No nodules. Kidneys: Normal in size. No suspicious masses, stones, or hydronephrosis. GI tract: Fluid-filled colon. No bowel obstruction. No inflammatory changes. Vasculature: Abdominal aorta is normal in caliber. Lymph nodes: No lymphadenopathy. Peritoneum/Abdominal Wall: Unremarkable. No sign of mass or infiltration. No free air or significant free fluid. Pelvis: Enlarged prostate gland. Bladder incompletely urinary distended with wall thickening. Bones: Unremarkable for age. IMPRESSION: 1. Splenomegaly. 2. Fluid-filled colon. No wall thickening or inflammatory change nonspecific but could be seen with any etiology of diarrhea. There is no acute findings in the abdomen pelvis otherwise seen. Please note that all CT scans at this facility use dose modulation, iterative reconstruction, and/or weight-based dosing when appropriate to reduce radiation dose to as low as reasonably achievable. Dictated by Mili Haney MD @ 09/25/2023 5:48:42 AM (Electronically Signed)
== END 2023-09-22 10:54 | disposition home or self-care (01) ==
LOC: CT 10:54
PROVIDERS: PCP Physician Assistant Medical; Visit Provider Family Medicine
DX: R10.9 Unspecified abdominal pain (principal); R16.1 Splenomegaly, not elsewhere classified
CPT/HCPCS: 74177; Q9967

== ENCOUNTER 2023-11-11 18:05 | Outpatient (CLI) | payer OTHER, SELFPAY ==
--- OUTSIDE RECORDS SUMMARY | 2023-11-12 02:55 | XMS_ITS | Referral Summary ---
Author Organization [facility] Address [address] [place] [address] Care Team Providers Care Prepared Foods Associate Name Role Phone Clinic - [facility] Primary Ca re Provider Alfredo Cali MD Unavailable + [phone] Allergies Active Allergy Reactions Criticality Noted Date Comments No Known Drug Allergy 04/04/2003 Medications Medication Sig Dispensed Refills Start Date End Date Status RITALIN 10 MG OR TABS 1 TABLET TWICE DAILY BEFORE MEALS 60 0 04/06/2006 Active Active Problems Problem Noted Date Diagnosed Date Alcohol dependence with unsp ecified alcohol-induced disorder 02/12/2018 Abdominal pain, unspecified abdominal location 1 Overview: Previous workup in [place]. Records requested 01/24/18. Attention deficit disorder [...] (226 lb 8 oz) 02/12/2018 1:08 PM SPOUT TENDER Height 182.9 cm (6') 02/12/2018 1:08 PM SPOUT TENDER Body Mass Index 30.72 02/12/2018 1:08 PM SPOUT TENDER Plan of Treatment Not on file Procedures Procedure Name Priority Date/Time Associated Diagnosis Comments COMPREHENSIVE METABOLIC PANEL Routine 01/24/2018 12:14 PM CDT Abdominal pain, unspecified abdominal location HCL HIV 1 & 2 ANTIBODY Routine 3 12:34 PM SPOUT TENDER from Last 3 Months or Most Recently Relevant to Health Maintenance Results * (ABNORMAL) Comprehensive metabolic panel (01/24/2018 12:14 PM CDT) Sodium 138 133 - 144 mmol/L 01/24/2018 5:[address] [facility] Potassium 4.0 3.4 - 5.3 mmol/L 01/24/2018 5:[address] [facility] Chloride 107 94 - 109 mmol/L 01/24/2018 5:[address] [facility] Carbon Dioxide 25 20 - 32 mmol/L 01/24/2018 5:[address] [facility] Anion Gap 6 3 - 14 mmol/L 01/24/2018 5:[address] [facility] Glucose 63(L) 70 - 99 mg/dL 01/24/2018 5:[address] [facility] Urea Nitrogen 15 7 - 30 mg/dL 01/24/2018 5:[address] [facility] Creatinine 1.16 0.66 - 1.25 mg/dL 01/24/2018 5:[address] [facility] GFR Estimate 70 >60 mL/min/1.7 m2 01/24/2018 5:[address] [facility] Comment:Non GFR Calc GFR Estimate If Black 85 >60 mL/min/1.7 m2 01/24/2018 5:[address] [facility] Comment: GFR Calc Calcium 8.5 8.5 - 10.1 mg/dL 01/24/2018 5:[address] [facility] Bilirubin Total 0.4 0.2 - 1.3 mg/dL 01/24/2018 5:[address] [facility] Albumin 3.7 3.4 - 5.0 g/dL 01/24/2018 5:[address] [facility] Protein Total 6.9 6.8 - 8.8 g/dL 01/24/2018 5:[address] [facility] Alkaline Phosphatase 81 40 - 150 U/L 01/24/2018 5:[address] [facility] ALT 75(H) 0 - 70 U/L 01/24/2018 5:[address] [facility] AST 39 0 - 45 U/L 01/24/2018 5:[address] [facility] Blood specimen (specimen) 01/24/2018 12:14 PM CDT 01/24/2018 12:15 PM CDT Pari Ascencio MD LAB - BLOOD ORDERABLES [facility] [address] [place] [address] * HIV-1/HIV-2, SCREEN (04/29/2002 12:34 PM SPOUT TENDER) HIV 1&2 Antibody Negative NEG [facility] 04/29/2002 12:3 4 PM SPOUT TENDER 04/29/2002 12:39 PM SPOUT TENDER Mati White MD LABORATORY [facility] from Last 3 Months or Most Recently Relevant to Health Maintenance Care Teams Prepared Foods Associate Relationship Specialty Start Date End Date Clinic - [facility] [address] [place], [place] [id number] PCP - General 01/24/18 [place] [address] [place] [address] 01/23/18
--- OUTSIDE RECORDS SUMMARY | 2023-11-12 02:55 | XMS_ITS | Clinical Summary ---
Author Organization [facility] Address [place], [place] [address] Care Team Providers Care Miner Placer Name Role Phone Clinic, No Pcp Or [...] Comments Blood Pressure 156/108 04/04/2023 7:02 PM NATIONAL EXPANSION RECRUITER Pulse 93 04/04/2023 7:02 PM NATIONAL EXPANSION RECRUITER Temperature 36.2 ??C (97.1 ??F) 04/04/2023 7:02 PM CS T Respiratory Rate 18 04/04/2023 7:02 PM NATIONAL EXPANSION RECRUITER Oxygen Saturation 96% 04/04/2023 7:02 PM NATIONAL EXPANSION RECRUITER Inhaled Oxygen Concentration - - Weight 97.5 kg (215 lb) 04/04/2023 7:02 PM NATIONAL EXPANSION RECRUITER Height 182.9 cm (6') 04/04/2023 7:02 PM NATIONAL EXPANSION RECRUITER Body Mass Index 29.16 04/04/2023 7:02 PM NATIONAL EXPANSION RECRUITER Plan of Treatment Health Maintenance Due Date [...] age to complete this topic Care Teams Miner Placer Relationship Specialty Start Date End Date Clinic, No Pcp Or . PCP - General 02/12/22
--- OUTSIDE RECORDS SUMMARY | 2023-11-12 02:55 | XMS_ITS | Clinical Summary ---
Author Organization [facility] Address [address] [place] [address] Care Team Providers Care Professor Of Early Childhood Education Name Role Phone Clinic - [facility] Primary Ca re Provider Alfredo Cali MD Unavailable + [phone] Allergies Active Allergy Reactions Criticality Noted Date Comments No Known Drug Allergy 04/04/2003 Medications Medication Sig Dispensed Refills Start Date End Date Status RITALIN 10 MG OR TABS 1 TABLET TWICE DAILY BEFORE MEALS 60 0 04/06/2006 Active Active Problems Problem Noted Date Diagnosed Date Alcohol dependence with unsp ecified alcohol-induced disorder 02/12/2018 Abdominal pain, unspecified abdominal location 1 Overview: Previous workup in [place]. Records requested 01/24/18. Attention deficit disorder 04/10/2006 [...] (226 lb 8 oz) 02/12/2018 1:08 PM STRAPPER OPERATOR Height 182.9 cm (6') 02/12/2018 1:08 PM STRAPPER OPERATOR Body Mass Index 30.72 02/12/2018 1:08 PM STRAPPER OPERATOR Plan of Treatment Health Maintenance Due [...] & 2 ANTIBODY Routine 3 12:34 PM STRAPPER OPERATOR from Last 3 Months or Most Recently Relevant to Health Maintenance Results * (ABNORMAL) Comprehensive metabolic panel (01/24/2018 12:14 PM CDT) [facility] Sodium 138 133 - 144 mmol/L 01/24/2018 5:17 PM CDT [facility] Potassium 4.0 3.4 - 5.3 mmol/L 01/24/2018 5:17 PM T [facility] Chloride 107 94 - 109 mmol/L 01/24/2018 5:17 PM T [facility] Carbon Dioxide 25 20 - 32 mmol/L 01/24/2018 5:17 PM T [facility] Anion Gap 6 3 - 14 mmol/L 01/24/2018 5:17 PM CDT [facility] Glucose 63(L) 70 - 99 mg/dL 01/24/2018 5:17 PM T [facility] Urea Nitrogen 15 7 - 30 mg/dL 01/24/2018 5:17 PM T [facility] Creatinine 1.16 0.66 - 1.25 mg/dL 01/24/2018 5:17 PM CDT [facility] GFR Estimate 70 >60 mL/min/1.7 m2 01/24/2018 5:17 PM T [facility] Comment:Non GFR Calc GFR Estimate If Black 85 >60 mL/min/1.7 m2 01/24/2018 5:17 PM T [facility] Comment: GFR Calc Calcium 8.5 8.5 - 10.1 mg/dL 01/24/2018 5:17 PM T [facility] Bilirubin Total 0.4 0.2 - 1.3 mg/dL 01/24/2018 5:17 PM T [facility] Albumin 3.7 3.4 - 5.0 g/dL 01/24/2018 5:17 PM CDT [facility] Protein Total 6.9 6.8 - 8.8 g/dL 01/24/2018 5:17 PM T [facility] Alkaline Phosphatase 81 40 - 150 U/L 01/24/2018 5:17 PM T [facility] ALT 75(H) 0 - 70 U/L 01/24/2018 5:17 PM CDT [facility] AST 39 0 - 45 U/L 01/24/2018 5:17 PM CDT [facility] Blood specimen (specimen) 01/24/2018 12:14 PM CDT 01/24/2018 12:15 PM CDT Pari Ascencio MD LAB - BLOOD ORDERABLES [facility] [address] [place] [address] * HIV-1/HIV-2, SCREEN (04/29/2002 12:34 PM STRAPPER OPERATOR) HIV 1&2 Antibody Negative NEG [facility] 04/29/2002 12:3 4 PM STRAPPER OPERATOR 04/29/2002 12:39 PM STRAPPER OPERATOR Mati White MD LABORATORY [facility] from Last 3 Months or Most Recently Relevant to Health Maintenance Care Teams Professor Of Early Childhood Education Relationship Specialty Start Date End Date Clinic - [facility] [address] [place] [address] PCP - General 01/24/18 [place] [address] [place] [address] 01/23/18
--- OUTSIDE RECORDS SUMMARY | 2023-11-12 02:55 | XMS_ITS | Clinical Summary ---
Author Organization [facility] Address [address] [address] Care Team Providers Care Station Superintendent Name Role Phone Unassigned, Provider Primary Care Provider Unava ilable Source Comments You are receiving this document as you are listed as the primary care provider,follow-up provider, or the patient has been referred to you for consultation.This is in compliance with the Medicare and[facility] E[facility] Incentive Program,which states Providers who transition their patient to another setting of careor provider of care or refers their patient to another provider of care shouldprovide summary care record for each transition of care or referral. [facility] Allergies No known active allergies Medications No [...] age to complete this topic Care Teams Station Superintendent Relationship Specialty Start Date End Date Unassigned, Provider [address] [place] [address] PCP - General 06/10/00
--- OUTSIDE RECORDS SUMMARY | 2023-11-12 02:55 | XMS_ITS | Referral Summary ---
Author Organization [facility] Address [address] [place] [address] Care Team Providers Care Site Lead Name Role Phone None, Md Primary Care Provider [facility], No Primary Unavailable Unavailable Allergies [...] of Treatment Not on file Care Teams Site Lead Relationship Specialty Start Date End Date None, PCP - General 08/15/22 Clinic, No Primary PCP - Primary Care Clinic 08/15/22
--- OUTSIDE RECORDS SUMMARY | 2023-11-12 02:55 | XMS_ITS | Clinical Summary ---
Author Organization [facility] Address [address] [place] [address] Care Team Providers Care Regulatory Internship Name Role Phone None, Md Primary Care Provider [facility], No Primary Unavailable Unavailable Allergies [...] age to complete this topic Care Teams Regulatory Internship Relationship Specialty Start Date End Date None, PCP - General 08/15/22 Clinic, No Primary PCP - Primary Care Clinic 08/15/22
== END 2023-11-11 18:06 | disposition home or self-care (01) ==
LOC: AMB 11-12 02:53
PROVIDERS: PCP Physician Assistant Medical; Visit Provider Emergency Medicine Emergency Medical Services
DX: R41.82 Altered mental status, unspecified (principal)
CPT/HCPCS: A0425; A0427

== ENCOUNTER 2023-11-11 18:58 | Emergency (ER) | payer OTHER, SELFPAY ==
[2023-11-11 19:12] VITALS: BP 156/92; PULSE 100; RESP 16; TEMP 36.7; O2SAT 99; BMI 30.1
--- NOTE | 2023-11-11 19:29 | ED.GENADULT ---
HPI - General Adult General Chief complaint: Unspecified Complaint, Adult Stated complaint: Dizziness, shaky Time Seen by Provider: 11/11/23 19:04 History of Present Illness HPI narrative: This 43-year-old male comes in by ambulance because of feeling shaky and lightheaded. He was working outside all day in the heat and states that he did not have anything the eat and not much to drink. He does have a history of alcohol use and states that his last drink of alcohol was at midnight last night. He also has a history of traumatic brain injury about a year and half ago and states that some of these symptoms are results of that. He arrives here with normal vital signs and heart rate at the upper edge of normal. Related Data Home Medications ?Medication ?Instructions ?Recorded ?Confirmed candesartan 16 mg tablet 16 mg PO QDAY 11/02/23 11/02/23 lorazepam 1 mg tablet 1 mg PO TID PRN 11/02/23 11/02/23 venlafaxine 37.5 mg 37.5 mg PO QDAY 11/02/23 11/02/23 capsule,extended release 24 hr Previous Rx's ?Medication ?Instructions ?Recorded folic acid 1 mg tablet 1 mg PO QDAY #90 tabs 05/04/23 mecobalamin (vitamin B12) 1,000 1,000 mcg PO QDAY #90 tabs 05/04/23 mcg chewable tablet thiamine HCl (vitamin B1) 100 mg 100 mg PO QDAY #90 tabs 05/04/23 tablet sertraline 50 mg tablet 50 mg PO QDAY #30 tabs 05/25/23 metoprolol succinate 50 mg 50 mg PO QDAY #30 tabs 05/29/23 tablet,extended release 24 hr naltrexone 50 mg tablet 50 mg PO QDAY #30 tabs 08/16/23 omeprazole 40 mg capsule,delayed 40 mg PO DAILY #90 caps 08/16/23 release bisacodyl 10 mg rectal suppository 10 mg SC QDAY PRN constipation #12 09/19/23 (Dulcolax (bisacodyl)) ea trazodone 50 mg tablet 50 mg PO QDAY #90 tabs 11/02/23 Allergies Allergy/AdvReac Type Severity Reaction Status Date / Time No Known Drug Allergies Allergy Verified 11/02/23 14:02 Review of Systems Status of ROS: Reports: 10 or more systems reviewed and unremarkable except as noted in History and below Narrative: Constitutional: No fevers, no weight gain or loss. Eyes: No discharge. No vision changes. HENT: No congestion, no sore throat, no ear pain. Cardiovascular: No chest pain, no palpitations. Respiratory: No shortness of breath, no wheezes, no cough. Gastrointestinal: No abdominal pain, no vomiting, no diarrhea. Genitourinary: No dysuria, no hematuria. Musculoskeletal: Normal range of motion. Skin: No rashes, no pruritis. Neurological: No weakness, sensory change, speech change. He does have some tremor and thinks that this might be more related to his traumatic brain injury than alcohol withdrawal. Endo/Heme/Allergies: No bruising or bleeding. No polydipsia. Pysch: no suicidality, no anxiety, no insomnia. All other systems reviewed and are negative. [facility] Medical History Work related injury (~08/15/22) ?Y99.0 - Civilian activity done for income or pay (ICD-10) History of alcohol withdrawal syndrome ?F10.91 - Alcohol use, unspecified, in remission (ICD-10) Olecranon bursitis ?M70.20 - Olecranon bursitis, unspecified elbow (ICD-10) Family History Father Skin cancer Other Alcohol dependence Social History Narrative: alcohol abuse , unemployed, drinks 6 beers and 6 shots of hard alcohol daily Smoking Status: Never smoker How often do you have a drink containing alcohol: 4 or more times a week AUDIT-C Alcohol total score: 4 Non-prescribed substance use: denies use Little interest or pleasure in doing things: nearly every day Feeling down, depressed, or hopeless: nearly every day Exam Narrative: Exam Narrative: Constitutional: Well-developed, well-nourished, no acute distress. HEENT: Normocephalic, atraumatic. Neck: Normal range of motion. Nontender. Supple. Heart: Regular. No murmurs. Normal rate. Intact distal pulses. Lungs: Clear to auscultation. No chest discomfort. No wheezes, rhonchi, or rales. Abdomen: Normal bowel sounds. Nontender. No rebound tenderness. Genitalia: Deferred. Back: No midline tenderness. Normal range of motion. Extremities: Normal range of motion. No injury. Skin: Intact. No rash. Warm. No erythema or pallor. Neurologic: No weakness. Alert and oriented. Generalized tremor and some shakiness in his voice. Psychiatric: No suicidality. No anxiety or depression. No insomnia. Nursing notes and vitals signs are reviewed. Const: Vital Signs, click to edit/add: Vital Signs - 24 hr 11/11/23 19:12 Temperature 98.0 F Pulse Rate [Right Pulse Oximeter] 100 Respiratory Rate 16 Blood Pressure [Ri ght Upper Arm] 156/92 H Pulse Oximetry 99 Oxygen Delivery Me thod Room Air Course Vital Signs Vital signs: Initial Vital Signs Temperature 98.0 F 11/11/23 19:12 Temperature Source Temporal Artery Scan 11/11/23 19:12 Pulse Rate 100 11/11/23 19:12 Pulse Rhythm Regular 11/11/23 19:12 Pulse Strength 3+ Normal 11/11/23 19:12 Respiratory Rate 16 11/11/23 19:12 Blood Pressure 156/92 H 11/11/23 19:12 Blood Pressure Mean 113 H 11/11/23 19:12 Blood Pressure Position Semi-Fowlers 11/11/23 19:12 Pulse Oximetry 99 11/11/23 19:12 Oxygen Delivery Method Room Air 11/11/23 19:12 Vital Signs Temperature 98.0 F 11/11/23 19:12 Pulse Rate 100 11/11/23 19:12 Respiratory Rate 16 11/11/23 19:12 Blood Pressure 156/92 H 11/11/23 19:12 Pulse Oximetry 99 11/11/23 19:12 Oxygen Delivery Method Room Air 11/11/23 19:12 Temperature 98.0 F 11/11/23 19:12 Pulse Rate 100 11/11/23 19:12 Respiratory Rate 16 11/11/23 19:12 Blood Pressure 156/92 H 11/11/23 19:12 Pulse Oximetry 99 11/11/23 19:12 Oxygen Delivery Method Room Air 11/11/23 19:12 Medications Administered Medications: Generic Name Dose Route Start Last Admin Trade Name Freq PRN Reason Stop Dose Admin Sodium Chloride 1,000 mls @ 1,000 mls/hr 11/11/23 19:30 11/11/23 19:39 0.9 % Sodium Chloride 1000 Ml IV 11/11/23 20:29 1,000 mls/hr .Q1H INOCENCIO Administration Lorazepam 1 mg 11/11/23 19:28 11/11/23 19:39 Lorazepam 2 Mg/Ml Inj IV 11/11/23 19:29 1 mg ONCE ONE Administration Medical Decision Making MDM Narrative Medical decision making narrative: This patient was out side working all day and comes in by ambulance cut he was feeling dizzy and shaky. He does have history of alcohol abuse and does state that his last drink was about midnight last night. He thinks that his symptoms today are more likely related to lack of food and drink intake while being outside all day on a warm day. He also attributes some of his symptoms to his traumatic brain injury that happened about a year and half ago. The patient did receive a half a L of normal saline prior to arrival administered by ambulance. I did review recent records. The patient received an extra L of normal saline here and a mg of Ativan IV. This brought improvement to his symptoms. He did receive a return to work note. Discharge Plan Discharge Clinical Impression: Volume depletion, TBI (traumatic brain injury), Tremor Patient Disposition: Home w/ Parent or Adult Condition: Stable Additional Instructions: Take food and drink. Continue current plans. Follow up with MD return if worsening. Prescriptions: No Action naltrexone 50 mg tablet 50 mg PO QDAY Qty: 30 1RF Rx Instructions: take 1 tablet daily for alcohol cravings omeprazole 40 mg capsule,delayed release(DR/EC) 40 mg PO DAILY Qty: 90 0RF Rx Instructions: once daily for acid reflux bisacodyl [Dulcolax (bisacodyl)] 10 mg suppository 10 mg SC QDAY PRN (Reason: constipation) Qty: 12 0RF lorazepam 1 mg tablet 1 mg PO TID PRN venlafaxine 37.5 mg capsule,extended release 24hr 37.5 mg PO QDAY candesartan 16 mg tablet 16 mg PO QDAY trazodone 50 mg tablet 50 mg PO QDAY Qty: 90 0RF Rx Instructions: one tablet once nightly for sleep aide folic acid 1 mg tablet 1 mg PO QDAY Qty: 90 3RF Rx Instructions: 1 tablet daily for folate deficiency thiamine HCl (vitamin B1) 100 mg tablet 100 mg PO QDAY Qty: 90 3RF Rx Instructions: 1 tablet daily mecobalamin (vitamin B12) 1,000 mcg tablet,chewable 1,000 mcg PO QDAY Qty: 90 3RF Rx Instructions: 1 tablet daily sertraline 50 mg tablet 50 mg PO QDAY Qty: 30 0RF Rx Instructions: once daily metoprolol succinate 50 mg tablet extended release 24 hr 50 mg PO QDAY Qty: 30 0RF Rx Instructions: one tablet daily for blood pressure Follow Up/Referrals: Ester Pa PA-C [Primary Care Provider] - Stand Alone Forms: [employer] Info Instructions
[2023-11-11] MEDS: LORazepam 2 MG/ML inj 1 MG IV (19:39)
[2023-11-11] MEDS: 0.9 % SODIUM CHLORIDE 1000 ml 1,000 ML IV (19:39)
--- OUTSIDE RECORDS SUMMARY | 2023-11-11 19:46 | XMS_ITS | Referral Summary ---
Author Organization [facility] Address [address] [place] [address] Care Team Providers Care Air Support Control Officer Name Role Phone Clinic - [facility] Primary Ca re Provider Alfredo Cali MD Unavailable + [phone] Allergies Active Allergy Reactions Criticality Noted Date Comments No Known Drug Allergy 04/04/2003 Medications Medication Sig Dispensed Refills Start Date End Date Status RITALIN 10 MG OR TABS 1 TABLET TWICE DAILY BEFORE MEALS 60 0 04/06/2006 Active Active Problems Problem Noted Date Diagnosed Date Alcohol dependence with unsp ecified alcohol-induced disorder 02/12/2018 Abdominal pain, unspecified abdominal location 1 Overview: Previous workup in [place]. Records requested 01/24/18. Attention deficit disorder 04/10/2006 [...] (226 lb 8 oz) 02/12/2018 1:08 PM GRAIN SACKER Height 182.9 cm (6') 02/12/2018 1:08 PM GRAIN SACKER Body Mass Index 30.72 02/12/2018 1:08 PM GRAIN SACKER Plan of Treatment Not on file Procedures Procedure Name Priority Date/Time Associated Diagnosis Comments COMPREHENSIVE METABOLIC PANEL Routine 01/24/2018 12:14 PM CDT Abdominal pain, unspecified abdominal location HCL HIV 1 & 2 ANTIBODY Routine 3 12:34 PM GRAIN SACKER from Last 3 Months or Most Recently Relevant to Health Maintenance Results * (ABNORMAL) Comprehensive metabolic panel (01/24/2018 12:14 PM CDT) Sodium 138 133 - 144 mmol/L 01/24/2018 5:[address] [facility] Potassium 4.0 3.4 - 5.3 mmol/L 01/24/2018 5:[address] [facility] Chloride 107 94 - 109 mmol/L 01/24/2018 5:[address] [facility] Carbon Dioxide 25 20 - 32 mmol/L 01/24/2018 5:[address] [facility] Anion Gap 6 3 - 14 mmol/L 01/24/2018 5:[address] [facility] Glucose 63(L) 70 - 99 mg/dL 01/24/2018 5:[address] [facility] Urea Nitrogen 15 7 - 30 mg/dL 01/24/2018 5:[address] [facility] Creatinine 1.16 0.66 - 1.25 mg/dL 01/24/2018 5:[address] [facility] GFR Estimate 70 >60 mL/min/1.7 m2 01/24/2018 5:[address] [facility] Comment:Non GFR Calc GFR Estimate If Black 85 >60 mL/min/1.7 m2 01/24/2018 5:[address] [facility] Comment: GFR Calc Calcium 8.5 8.5 - 10.1 mg/dL 01/24/2018 5:[address] [facility] Bilirubin Total 0.4 0.2 - 1.3 mg/dL 01/24/2018 5:[address] [facility] Albumin 3.7 3.4 - 5.0 g/dL 01/24/2018 5:[address] [facility] Protein Total 6.9 6.8 - 8.8 g/dL 01/24/2018 5:[address] [facility] Alkaline Phosphatase 81 40 - 150 U/L 01/24/2018 5:[address] [facility] ALT 75(H) 0 - 70 U/L 01/24/2018 5:[address] [facility] AST 39 0 - 45 U/L 01/24/2018 5:[address] [facility] Blood specimen (specimen) 01/24/2018 12:14 PM CDT 01/24/2018 12:15 PM CDT Pari Ascencio MD LAB - BLOOD ORDERABLES [facility] [address] [place] [address] * HIV-1/HIV-2, SCREEN (04/29/2002 12:34 PM GRAIN SACKER) HIV 1&2 Antibody Negative NEG [facility] 04/29/2002 12:3 4 PM GRAIN SACKER 04/29/2002 12:39 PM GRAIN SACKER Mati White MD LABORATORY [facility] from Last 3 Months or Most Recently Relevant to Health Maintenance Care Teams Air Support Control Officer Relationship Specialty Start Date End Date Clinic - [facility] [address] [place], [place] [id number] PCP - General 01/24/18 [place] [address] [place] [address] 01/23/18
--- OUTSIDE RECORDS SUMMARY | 2023-11-11 19:46 | XMS_ITS | Clinical Summary ---
Author Organization [facility] Address [place], [place] [address] Care Team Providers Care Mechanic Sound Technician Name Role Phone Clinic, No Pcp Or [...] Comments Blood Pressure 156/108 04/04/2023 7:02 PM SHIRT IRONER Pulse 93 04/04/2023 7:02 PM SHIRT IRONER Temperature 36.2 ??C (97.1 ??F) 04/04/2023 7:02 PM CS T Respiratory Rate 18 04/04/2023 7:02 PM SHIRT IRONER Oxygen Saturation 96% 04/04/2023 7:02 PM SHIRT IRONER Inhaled Oxygen Concentration - - Weight 97.5 kg (215 lb) 04/04/2023 7:02 PM SHIRT IRONER Height 182.9 cm (6') 04/04/2023 7:02 PM SHIRT IRONER Body Mass Index 29.16 04/04/2023 7:02 PM SHIRT IRONER Plan of Treatment Health Maintenance Due Date [...] age to complete this topic Care Teams Mechanic Sound Technician Relationship Specialty Start Date End Date Clinic, No Pcp Or . PCP - General 02/12/22
--- OUTSIDE RECORDS SUMMARY | 2023-11-11 19:46 | XMS_ITS | Referral Summary ---
Author Organization [facility] Address [address] [place] [address] Care Team Providers Care Jacquard Loom Carpet Weaver Name Role Phone None, Md Primary Care Provider [facility] Clinic, No Primary [...] of Treatment Not on file Care Teams Jacquard Loom Carpet Weaver Relationship Specialty Start Date End Date None, PCP - General 08/15/22 Clinic, No Primary PCP - Primary Care Clinic 08/15/22
--- OUTSIDE RECORDS SUMMARY | 2023-11-11 19:46 | XMS_ITS | Clinical Summary ---
Author Organization [facility] Address [address] [place] [address] Care Team Providers Care Vice President Supply Chain Name Role Phone None, Md Primary Care Provider [facility] Clinic, No Primary Unavailable Unavailable Allergies [...] Vaccine (2022-2 4 season) 2022 Influenza Vaccine (#1) 2023 Pneumococcal <65 Aged Out No longer e ligible based on patient's age to complete this topic Care Teams Vice President Supply Chain Relationship Specialty Start Date End Date None, PCP - General 08/15/22 Clinic, No Primary PCP - Primary Care Clinic 08/15/22
--- OUTSIDE RECORDS SUMMARY | 2023-11-11 19:46 | XMS_ITS | Clinical Summary ---
Author Organization [facility] Address [address] [place] [address] Care Team Providers Care Contracts Officer Name Role Phone Clinic - [facility] Primary Ca re Provider Alfredo Cali MD Unavailable + [phone] Allergies Active Allergy Reactions Criticality Noted Date Comments No Known Drug Allergy 04/04/2003 Medications Medication Sig Dispensed Refills Start Date End Date Status RITALIN 10 MG OR TABS 1 TABLET TWICE DAILY BEFORE MEALS 60 0 04/06/2006 Active Active Problems Problem Noted Date Diagnosed Date Alcohol dependence with unsp ecified alcohol-induced disorder 02/12/2018 Abdominal pain, unspecified abdominal location 1 Overview: Previous workup in [place]. Records requested 01/24/18. Attention deficit disorder 04/10/2006 [...] (226 lb 8 oz) 02/12/2018 1:08 PM TAKE DOWN INSPECTOR Height 182.9 cm (6') 02/12/2018 1:08 PM TAKE DOWN INSPECTOR Body Mass Index 30.72 02/12/2018 1:08 PM TAKE DOWN INSPECTOR Plan of Treatment Health Maintenance Due [...] (once per calendar year) 2023 INFLUENZA VACCINE (#1) 2023 HIV SCREENING Completed 04/29/2002 HPV IMMUNIZATION [...] & 2 ANTIBODY Routine 3 12:34 PM TAKE DOWN INSPECTOR from Last 3 Months or Most Recently Relevant to Health Maintenance Results * (ABNORMAL) Comprehensive metabolic panel (01/24/2018 12:14 PM CDT) [facility] Sodium 138 133 - 144 mmol/L 01/24/2018 5:17 PM CDT [facility] Potassium 4.0 3.4 - 5.3 mmol/L 01/24/2018 5:17 PM T [facility] Chloride 107 94 - 109 mmol/L 01/24/2018 5:17 PM T [facility] Carbon Dioxide 25 20 - 32 mmol/L 01/24/2018 5:17 PM T [facility] Anion Gap 6 3 - 14 mmol/L 01/24/2018 5:17 PM CDT [facility] Glucose 63(L) 70 - 99 mg/dL 01/24/2018 5:17 PM T [facility] Urea Nitrogen 15 7 - 30 mg/dL 01/24/2018 5:17 PM T [facility] Creatinine 1.16 0.66 - 1.25 mg/dL 01/24/2018 5:17 PM CDT [facility] GFR Estimate 70 >60 mL/min/1.7 m2 01/24/2018 5:17 PM T [facility] Comment:Non GFR Calc GFR Estimate If Black 85 >60 mL/min/1.7 m2 01/24/2018 5:17 PM T [facility] Comment: GFR Calc Calcium 8.5 8.5 - 10.1 mg/dL 01/24/2018 5:17 PM T [facility] Bilirubin Total 0.4 0.2 - 1.3 mg/dL 01/24/2018 5:17 PM T [facility] Albumin 3.7 3.4 - 5.0 g/dL 01/24/2018 5:17 PM CDT [facility] Protein Total 6.9 6.8 - 8.8 g/dL 01/24/2018 5:17 PM T [facility] Alkaline Phosphatase 81 40 - 150 U/L 01/24/2018 5:17 PM T [facility] ALT 75(H) 0 - 70 U/L 01/24/2018 5:17 PM CDT [facility] AST 39 0 - 45 U/L 01/24/2018 5:17 PM CDT [facility] Blood specimen (specimen) 01/24/2018 12:14 PM CDT 01/24/2018 12:15 PM CDT Pari Ascencio MD LAB - BLOOD ORDERABLES [facility] [address] [place] [address] * HIV-1/HIV-2, SCREEN (04/29/2002 12:34 PM TAKE DOWN INSPECTOR) HIV 1&2 Antibody Negative NEG [facility] 04/29/2002 12:3 4 PM TAKE DOWN INSPECTOR 04/29/2002 12:39 PM TAKE DOWN INSPECTOR Mati White MD LABORATORY [facility] from Last 3 Months or Most Recently Relevant to Health Maintenance Care Teams Contracts Officer Relationship Specialty Start Date End Date Clinic - [facility] [address] [place] [address] PCP - General 01/24/18 [place] [address] [place] [address] 01/23/18
--- OUTSIDE RECORDS SUMMARY | 2023-11-11 19:47 | XMS_ITS | Clinical Summary ---
Author Organization [facility] Address [address], [place] [address] Care Team Providers Care Pathological Technician Name Role Phone Unassigned, Provider Primary Care Provider Unava ilable Source Comments You are receiving this document as you are listed as the primary care provider,follow-up provider, or the patient has been referred to you for consultation.This is in compliance with the Medicare and[employer] [facility] EHR Incentive Program,which states Providers who transition their patient to another setting of careor provider of care or refers their patient to another provider of care shouldprovide summary care record for each transition of care or referral. [facility] Allergies No known active allergies Medications No [...] COVID-19 Vaccine (2022-2 4 season) 2022 Influenza (#1) 2023 Zoster/Shingles (1 of 2) 2029 HPV [...] age to complete this topic Care Teams Pathological Technician Relationship Specialty Start Date End Date Unassigned, Provider [address] [place] [address] PCP - General 06/10/00
== END 2023-11-11 20:34 | disposition home or self-care (01) ==
PROVIDERS: Emergency Provider Emergency Medicine Emergency Medical Services; PCP Physician Assistant Medical
DX: E86.9 Volume depletion, unspecified (principal); R25.1 Tremor, unspecified; S06.9X9A Unspecified intracranial injury with loss of consciousness of unspecified duration, initial encounter
CPT/HCPCS: 96374; 99284; J2060; J7030

== ENCOUNTER 2024-01-11 14:55 | Outpatient (CLI) | payer OTHER, SELFPAY ==
--- OUTSIDE RECORDS SUMMARY | 2024-01-11 14:58 | XMS_ITS | Referral Summary ---
Author Organization [facility] Address [address] [place] [address] Care Team Providers Care Rehabilitation Program Coordinator Name Role Phone Clinic - [facility] Primary Ca re Provider Alfredo Cali MD Unavailable + [phone] Allergies Active Allergy Reactions Criticality Noted Date Comments No Known Drug Allergy 04/04/2003 Medications Medication Sig Dispensed Refills Start Date End Date Status RITALIN 10 MG OR TABS 1 TABLET TWICE DAILY BEFORE MEALS 60 0 04/06/2006 Active Active Problems Problem Noted Date Diagnosed Date Alcohol dependence with unsp ecified alcohol-induced disorder 02/12/2018 Abdominal pain, unspecified abdominal location 1 Overview: Previous workup in [place]. Records requested 01/24/18. Attention deficit disorder 04/10/2006 [...] lb 8 oz) 02/12/2018 1:08 PM DIRECTOR OF BUSINESS CONTINUITY Height 182.9 cm (6') 02/12/2018 1:08 PM DIRECTOR OF BUSINESS CONTINUITY Body Mass Index 30.72 02/12/2018 1:08 PM DIRECTOR OF BUSINESS CONTINUITY Plan of Treatment Not on file Procedures Procedure Name Priority Date/Time Associated Diagnosis Comments COMPREHENSIVE METABOLIC PANEL Routine 01/24/2018 12:14 PM CDT Abdominal pain, unspecified abdominal location HCL HIV 1 & 2 ANTIBODY Routine 3 12:34 PM DIRECTOR OF BUSINESS CONTINUITY from Last 3 Months or Most Recently Relevant to Health Maintenance Results * (ABNORMAL) Comprehensive metabolic panel (01/24/2018 12:14 PM CDT) Sodium 138 133 - 144 mmol/L 01/24/2018 5:17 PM CDT [facility] Potassium 4.0 3.4 - 5.3 mmol/L 01/24/2018 5:17 PM CDT [facility] Chloride 107 94 - 109 mmol/L 01/24/2018 5:17 PM T [facility] Carbon Dioxide 25 20 - 32 mmol/L 01/24/2018 5:17 PM CDT [facility] Anion Gap 6 3 - 14 mmol/L 01/24/2018 5:17 PM T [facility] Glucose 63(L) 70 - 99 mg/dL 01/24/2018 5:17 PM T [facility] Urea Nitrogen 15 7 - 30 mg/dL 01/24/2018 5:17 PM T [facility] Creatinine 1.16 0.66 - 1.25 mg/dL 01/24/2018 5:17 PM CDT [facility] GFR Estimate 70 >60 mL/min/1.7 m2 01/24/2018 5:17 PM CDT [facility] Comment:Non GFR Calc GFR Estimate If Black 85 >60 mL/min/1.7 m2 01/24/2018 5:17 PM CDT [facility] Comment: GFR Calc Calcium 8.5 8.5 - 10.1 mg/dL 01/24/2018 5:17 PM CDT [facility] Bilirubin Total 0.4 0.2 - 1.3 mg/dL 01/24/2018 5:17 PM CDT [facility] Albumin 3.7 3.4 - 5.0 g/dL 01/24/2018 5:17 PM CDT [facility] Protein Total 6.9 6.8 - 8.8 g/dL 01/24/2018 5:17 PM CDT [facility] Alkaline Phosphatase 81 40 - 150 U/L 01/24/2018 5:17 PM CDT [facility] ALT 75(H) 0 - 70 U/L 01/24/2018 5:17 PM CDT [facility] AST 39 0 - 45 U/L 01/24/2018 5:17 PM CDT [facility] Blood specimen (specimen) 01/24/2018 12:14 PM CDT 01/24/2018 12:15 PM CDT Pari Ascencio MD LAB - BLOOD ORDERABLES [facility] [address] [place] [address] * HIV-1/HIV-2, SCREEN (04/29/2002 12:34 PM DIRECTOR OF BUSINESS CONTINUITY) HIV 1&2 Antibody Negative NEG [facility] 04/29/2002 12:3 4 PM DIRECTOR OF BUSINESS CONTINUITY 04/29/2002 12:39 PM DIRECTOR OF BUSINESS CONTINUITY Mati White MD LABORATORY [facility] from Last 3 Months or Most Recently Relevant to Health Maintenance Care Teams Rehabilitation Program Coordinator Relationship Specialty Start Date End Date Clinic - [facility] [address] [place], [place] [id number] PCP - General 01/24/18 [place] [address] [place] [address] 01/23/18
--- OUTSIDE RECORDS SUMMARY | 2024-01-11 14:58 | XMS_ITS | Clinical Summary ---
Author Organization [facility] Address [address] [place] [address] Care Team Providers Care Electric Trucker Name Role Phone Unassigned, Provider Primary Care Provider Unava ilable Source Comments You are receiving this document as you are listed as the primary care provider,follow-up provider, or the patient has been referred to you for consultation.This is in compliance with the Medicare and[facility] Incentive [facility],which states Providers who transition their patient to another setting of careor provider of care or refers their patient to another provider of care shouldprovide summary care record for each transition of care or referral. [facility] Allergies No known active allergies Medications No known medications Encounters Date Type Department Care Team Description 11/13/2023 Telephone [facility] [address] [place] [address] Unassigned, Provider QUESTIONS, GENERAL from Last 3 Months Social History Tobacco [...] HepB (1) 1998 Cholesterol 2014 COVID-19 Vaccine (1 - 2023-2 5 season) 2023 Influenza (#1) 2023 Zoster/Shingles (1 of 2) [...] age to complete this topic Care Teams Electric Trucker Relationship Specialty Start Date End Date Unassigned, Provider [address] [place] [address] PCP - General 06/10/00
--- OUTSIDE RECORDS SUMMARY | 2024-01-11 14:58 | XMS_ITS | Clinical Summary ---
Author Organization [facility] Address [address] [place] [address] Care Team Providers Care Adult Care Manager Name Role Phone Clinic - [facility] Primary Ca re Provider Alfredo Cali MD Unavailable + [phone] Allergies Active Allergy Reactions Criticality Noted Date Comments No Known Drug Allergy 04/04/2003 Medications Medication Sig Dispensed Refills Start Date End Date Status RITALIN 10 MG OR TABS 1 TABLET TWICE DAILY BEFORE MEALS 60 0 04/06/2006 Active Active Problems Problem Noted Date Diagnosed Date Alcohol dependence with unsp ecified alcohol-induced disorder 02/12/2018 Abdominal pain, unspecified abdominal location 1 Overview: Previous workup in [place]. Records requested 01/24/18. Attention deficit disorder 04/10/2006 [...] (226 lb 8 oz) 02/12/2018 1:08 PM INSEAMER Height 182.9 cm (6') 02/12/2018 1:08 PM INSEAMER Body Mass Index 30.72 02/12/2018 1:08 PM INSEAMER Plan of Treatment Health Maintenance Due Date [...] Tdap) 2004 LIPID 2019 GLUCOSE 01/24/2021 01/24/2018 PHQ-2 (once per calendar year) 2023 COVID-19 Vaccine (1 - 2023-2 5 season) 2023 INFLUENZA VACCINE (#1) 2023 RSV VACCINE (1 - 1-dose 75+ series) 2054 HIV SCREENING Completed 04/29/2002 HPV IMMUNIZATION Aged [...] & 2 ANTIBODY Routine 3 12:34 PM INSEAMER from Last 3 Months or Most Recently Relevant to Health Maintenance Results * (ABNORMAL) Comprehensive metabolic panel (01/24/2018 12:14 PM CDT) [facility] Sodium 138 133 - 144 mmol/L 01/24/2018 5:17 PM T [facility] Potassium 4.0 3.4 - 5.3 mmol/L 01/24/2018 5:17 PM T [facility] Chloride 107 94 - 109 mmol/L 01/24/2018 5:17 PM T [facility] Carbon Dioxide 25 20 - 32 mmol/L 01/24/2018 5:17 PM T [facility] Anion Gap 6 3 - 14 mmol/L 01/24/2018 5:17 PM T [facility] Glucose 63(L) 70 - 99 mg/dL 01/24/2018 5:17 PM T [facility] Urea Nitrogen 15 7 - 30 mg/dL 01/24/2018 5:17 PM [facility] Creatinine 1.16 0.66 - 1.25 mg/dL 01/24/2018 5:17 PM T [facility] GFR Estimate 70 >60 mL/min/1.7 m2 01/24/2018 5:17 PM T [facility] Comment:Non GFR Calc GFR Estimate If Black 85 >60 mL/min/1.7 m2 01/24/2018 5:17 PM T [facility] Comment: GFR Calc Calcium 8.5 8.5 - 10.1 mg/dL 01/24/2018 5:17 PM T [facility] Bilirubin Total 0.4 0.2 - 1.3 mg/dL 01/24/2018 5:17 PM T [facility] Albumin 3.7 3.4 - 5.0 g/dL 01/24/2018 5:17 PM T [facility] Protein Total 6.9 6.8 - 8.8 g/dL 01/24/2018 5:17 PM T [facility] Alkaline Phosphatase 81 40 - 150 U/L 01/24/2018 5:17 PM T [facility] ALT 75(H) 0 - 70 U/L 01/24/2018 5:17 PM CDT [facility] AST 39 0 - 45 U/L 01/24/2018 5:17 PM CDT [facility] Blood specimen (specimen) 01/24/2018 12:14 PM CDT 01/24/2018 12:15 PM CDT Pari Ascencio MD LAB - BLOOD ORDERABLES [facility] [address] [place] [address] * HIV-1/HIV-2, SCREEN (04/29/2002 12:34 PM INSEAMER) HIV 1&2 Antibody Negative NEG [facility] 04/29/2002 12:3 4 PM INSEAMER 04/29/2002 12:39 PM INSEAMER Mati White MD LABORATORY [facility] from Last 3 Months or Most Recently Relevant to Health Maintenance Care Teams Adult Care Manager Relationship Specialty Start Date End Date Clinic - [facility] [address] [place] [address] PCP - General 01/24/18 [place] [address] [place] [address] 01/23/18
--- OUTSIDE RECORDS SUMMARY | 2024-01-11 14:58 | XMS_ITS | Clinical Summary ---
Author Organization [employer] [facility] Address [place], [place] [address] Care Team Providers Care Hardware Press Operator Name Role Phone Clinic, No Pcp Or [...] Encounters Date Type Department Care Team Description 01/10/2024 11:12 AM CDT - 01/10/2024 11:59 PM CDT Hospital Encounter [address] [place] [address] Alfredo Clarke [place], [place] 01/10/2024 Travel 01/03/2024 10:45 AM CDT - 01/03/2024 11:59 PM CDT Hospital Encounter [facility] [address] [place] [address] [address] [place] [address] Alfredo Clarke [place], [place] 01/03/2024 Travel 12/26/2023 10:04 AM CDT - 12/26/2023 11:59 PM CDT Hospital Encounter [facility] [address] [place] [address] [address] [place] [address] Alfredo Clarke Encounter for person encountering health services 12/26/2023 Travel 12/10/2023 Transcribe Orders [facility] [place], [facility] Building [address] [address] Alfredo Clarke from Last 3 Months Social History Tobacco [...] Comments Blood Pressure 156/108 04/04/2023 7:02 PM [facility] Pulse 93 04/04/2023 7:02 PM [facility] Temperature 36.2 ??C (97.1 ??F) 04/04/2023 7:02 PM CS T Respiratory Rate 18 04/04/2023 7:02 PM [facility] Oxygen Saturation 96% 04/04/2023 7:02 PM [facility] Inhaled Oxygen Concentration - - Weight 97.5 kg (215 lb) 04/04/2023 7:02 PM [facility] Height 182.9 cm (6') 04/04/2023 7:02 PM [facility] Body Mass Index 29.16 04/04/2023 7:02 PM [facility] Plan of Treatment Upcoming Encounters Date Type Department Care Team (Late st Contact Info) Description 01/18/2024 11:00 AM CDT Appointment [facility] [address] [place] [address] [address] [place] [address] Ashlyn Riddle, MINI LAB OPERATOR [address] [facility] [address] [place] [address] 01/24/2024 10:45 AM CDT Appointment [facility] [address] [place] [address] [address] [place] [address] Ashlyn Riddle, MINI LAB OPERATOR [address] [facility] [address] [place] [address] Health Maintenance Due Date Last Done Comments Tdap 1990 Depression screening for age 12+ 1991 HIV for age 15-65 1994 Hepatitis C screening for ag e 18-79 1997 Tetanus booster 1999 Lipids for age 35-44 2014 BMI (ht and wt on same day) for age 18+ 11/08/2017 11/08/2016 COVID-19 vaccine series (2023- season) 2023 Influenza for age 9-49 12/10/2023 Pneumococcal series for age 6-64 Aged Out No longer eligible based on patient's age to complete this topic Care Teams Hardware Press Operator Relationship Specialty Start Date End Date Clinic, No Pcp Or . PCP - General 02/12/22
--- OUTSIDE RECORDS SUMMARY | 2024-01-11 14:58 | XMS_ITS | Clinical Summary ---
Author Organization 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 [...] 1980 Adult Tetanus Booster 1998 COVID-19 Vaccine (2023-2 5 season) 2023 Influenza Vaccine (#1) 2023 RSV Vaccines (1 - 1-dose 75+ series) 2054 Pneumococcal <65 Aged Out No longer e ligible based on patient's age to complete this topic Care Teams Side Door Worker Relationship Specialty Start Date End Date None, PCP - General 08/15/22 Clinic, No Primary PCP - Primary Care Clinic 08/15/22
--- OUTSIDE RECORDS SUMMARY | 2024-01-11 14:58 | XMS_ITS | Encounter Summary ---
Author Organization [facility] Address [address] [place] [address] Care Team Providers Care Plant Anatomist Name Role Phone Unassigned, Provider Primary Care Provider Unava ilable Reason for Visit * Reason Comments QUESTIONS, GENERAL Encounter Details Date Type Department Care Team (Late st Contact Info) Description 11/13/2023 Telephone [facility] [address] [place] [address] Unassigned, Provider [address] [place] [address] QUESTIONS, GENERAL Social History Tobacco Use Types Packs/Day Years Used Date Smoking Tobacco: Never Sex and Gender Information Value Date Recorded Sex Assigned at Not on file Gender Identity Not on file Sexual Orientation Not on file documented as of this encounter Nursing Notes * Trina Rodriguez - 11/13/2023 10:12 AM CDT Other Questions/Concerns/FYI Is this a symptom? No What is your question or concern? Karlene from [facility] [employer] called to verify if the Patient has been seen at [facility]. Date of Injury was 08/15/2022 Injury: Head In further investigation, Nicole is listed as the Workers Comp. Informed Karlene we are not able to disclose any information. She asked for a fax number to send paperwork to. Have you recently been seen for this? No Preferred communication method: None documented in this encounter Plan of Treatment Not on file documented as of this encounter Visit Diagnoses Not on filedocumented in this encounter Care Teams Plant Anatomist Relationship Specialty Start Date End Date Unassigned, Provider [address] [place] [address] PCP - General 06/10/00 documented as of this encounter
--- OUTSIDE RECORDS SUMMARY | 2024-01-11 14:58 | XMS_ITS | Referral Summary ---
Author Organization [facility] Address [facility] [place] [address] Care Team Providers Care Physicist Astrophysics Name Role Phone None, Md Primary Care Provider [facility] Clinic, No Primary Unavailable Unavailable Allergies [...] of Treatment Not on file Care Teams Physicist Astrophysics Relationship Specialty Start Date End Date None, PCP - General 08/15/22 Clinic, No Primary PCP - Primary Care Clinic 08/15/22
== END 2024-01-11 14:56 | disposition home or self-care (01) ==
PROVIDERS: PCP Physician Assistant Medical; Visit Provider Physician Assistant Medical
DX: R74.8 Abnormal levels of other serum enzymes (principal); E53.8 Deficiency of other specified B group vitamins; R79.89 Other specified abnormal findings of blood chemistry; I10 Essential (primary) hypertension; D69.6 Thrombocytopenia, unspecified; F10.10 Alcohol abuse, uncomplicated; R10.9 Unspecified abdominal pain; F41.9 Anxiety disorder, unspecified
CPT/HCPCS: 80053; 82077; 82607; 82746; 83690; 83735; 84425

== ENCOUNTER 2024-03-26 09:17 | Emergency (ER) | payer OTHER, SELFPAY ==
[2024-03-26] VITALS (16 sets, daily range): BP systolic 122–153; BP diastolic 79–107; PULSE 69–74; RESP 18; TEMP 36.9; O2SAT 96–99; BMI 29.2
--- NOTE | 2024-03-26 09:35 | ED_ITS ---
HPI - General Adult General Chief complaint: Neuro Symptoms/Altered Deficit Stated complaint: Tremors Time Seen by Provider: 03/26/24 09:35 History of Present Illness HPI narrative: Pt presents with complaints of numbness and tingling all over for the last x4 days. History of TBI in the last year, Hx ETOH. Denies current withdrawals. Last drink yesterday, reported x2 drink. Pt mother was on scene with EMS, reports the pt going through a hard time. 43-year-old man presenting to the emergency department via EMS with concern of tremors. He reports numbness and tingling in all extremities that is worse over the last 4 days. Suspected apparently related to combination of head injury and cervical discs. Does have a history of a TBI. Apparently has been diagnosed with an ulnar neuropathy affecting both arms/hands. He also is experiencing increase in the usual numbness and tingling present in his thighs. Is going all the way down though to his feet though this is not necessarily new. No family history of unusual neurological disorders. Has had EMG testing; results not available. Is planned for repeat EMG testing and was to have this done last week but having difficulties with insurance. Notes himself to be having muscle twitches which used to happen spontaneously intermittently since he was a kid but this is more frequent now and intense. He says this is more than alcohol withdrawal. Related Data Home Medications ?Medication ?Instructions ?Recorded ?Confirmed lorazepam 1 mg tablet 1 mg PO TID PRN 11/02/23 03/28/24 Previous Rx's ?Medication ?Instructions ?Recorded naltrexone 50 mg tablet 50 mg PO QDAY #30 tabs 08/16/23 bisacodyl 10 mg rectal suppository 10 mg CA QDAY PRN constipation #12 09/19/23 (Dulcolax (bisacodyl)) ea trazodone 50 mg tablet 50 mg PO QDAY #90 tabs 11/02/23 omeprazole 40 mg capsule,delayed 40 mg PO DAILY #90 caps 11/22/23 release folic acid 1 mg tablet 1 mg PO QDAY #90 tabs 03/28/24 gabapentin 300 mg capsule 300 mg PO BID #60 caps 03/28/24 mecobalamin (vitamin B12) 1,000 1,000 mcg PO QDAY #90 tabs 03/28/24 mcg chewable tablet metoprolol succinate 50 mg 50 mg PO QDAY #90 tabs 03/28/24 tablet,extended release 24 hr sertraline 50 mg tablet 50 mg PO QDAY #90 tabs 03/28/24 thiamine HCl (vitamin B1) 100 mg 100 mg PO QDAY #90 tabs 03/28/24 tablet Allergies Allergy/AdvReac Type Severity Reaction Status Date / Time No Known Drug Allergies Allergy Verified 03/28/24 15:19 Review of Systems Status of ROS: Reports: 6 or more systems reviewed and unremarkable except as noted in History and below [facility] Medical History (Updated 04/01/24 @ 11:08 by Ester Pa PA-C) Abdominal pain ?R10.9 - Unspecified abdominal pain (ICD-10) Heat exhaustion (~11/11/23) ?T67.5XXA - Heat exhaustion, unspecified, initial encounter (ICD-10) Work related injury (~08/15/22) ?Y99.0 - Civilian activity done for income or pay (ICD-10) History of alcohol withdrawal syndrome ?F10.91 - Alcohol use, unspecified, in remission (ICD-10) Olecranon bursitis ?M70.20 - Olecranon bursitis, unspecified elbow (ICD-10) Family History Father Skin cancer Other Alcohol dependence Social History Narrative: alcohol abuse , unemployed, drinks 6 beers and 6 shots of hard alcohol daily Smoking Status: Never smoker How often do you have a drink containing alcohol: 4 or more times a week How many standard drinks containing alcohol do you have on a typical day: 1 or 2 How often do you have six or more drinks on one occasion: Never AUDIT-C Alcohol total score: 4 Non-prescribed substance use: denies use Exam Narrative: Exam Narrative: Pleasant. Generally little tremulous. Periodically will get a twitch causing most of his body to jump. Does not appear to be in pain. Generally weak in extremities but able to lift both legs from the bed. Good strength to extension and flexion at the ankles. Well-perfused peripherally without edema. 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 Heart in regular rate and rhythm. 2+ and equal lower extremity DTRs. Const: Vital Signs, click to edit/add: Vital Signs - 24 hr 03/26/24 09:21 03/26/24 11:09 03/26/24 11:30 Temperature 98.4 F Pulse Rate 73 69 Pulse Rate [Right Pulse Oximeter] 73 Respiratory Rate 18 Blood Pressure Blood Pressure [Ri ght Upper Arm] 153/107 H Pulse Oximetry 97 96 96 Oxygen Delivery Me thod Room Air 03/26/24 11:32 03/26/24 12:02 03/26/24 12:08 Temperature Pulse Rate 69 70 Pulse Rate [Right Pulse Oximeter] Respiratory Rate Blood Pressure 130/91 H 137/94 H Blood Pressure [Ri ght Upper Arm] Pulse Oximetry 96 99 Oxygen Delivery Me thod 03/26/24 12:30 03/26/24 12:32 03/26/24 13:00 Temperature Pulse Rate 71 70 72 Pulse Rate [Right Pulse Oximeter] Respiratory Rate Blood Pressure 136/90 H Blood Pressure [Ri ght Upper Arm] Pulse Oximetry 98 98 97 Oxygen Delivery Me thod 03/26/24 13:02 03/26/24 13:30 03/26/24 13:32 Temperature Pulse Rate 69 72 74 Pulse Rate [Right Pulse Oximeter] Respiratory Rate Blood Pressure 128/79 122/90 H Blood Pressure [Ri ght Upper Arm] Pulse Oximetry 97 98 97 Oxygen Delivery Me thod 03/26/24 13:33 03/26/24 14:00 03/26/24 14:02 Temperature Pulse Rate 70 73 69 Pulse Rate [Right Pulse Oximeter] Respiratory Rate Blood Pressure 132/101 H Blood Pressure [Ri ght Upper Arm] Pulse Oximetry 97 96 98 Oxygen Delivery Me thod 03/26/24 14:03 Temperature Pulse Rate 72 Pulse Rate [Right Pulse Oximeter] Respiratory Rate Blood Pressure Blood Pressure [Ri ght Upper Arm] Pulse Oximetry 96 Oxygen Delivery Me thod Documenting provider has reviewed patient's vital signs: yes Course Vital Signs Vital signs: Initial Vital Signs Temperature 98.4 F 03/26/24 09:21 Temperature Source Temporal Artery Scan 03/26/24 09:21 Pulse Rate 73 03/26/24 09:21 Pulse Rhythm Regular 03/26/24 09:21 Respiratory Rate 18 03/26/24 09:21 Blood Pressure 153/107 H 03/26/24 09:21 Blood Pressure Mean 122 H 03/26/24 09:21 Blood Pressure Position Supine 03/26/24 09:21 Pulse Oximetry 97 03/26/24 09:21 Oxygen Delivery Method Room Air 03/26/24 09:21 Vital Signs Temperature 98.4 F 03/26/24 09:21 Pulse Rate 73 03/26/24 09:21 Respiratory Rate 18 03/26/24 09:21 Blood Pressure 153/107 H 03/26/24 09:21 Pulse Oximetry 97 03/26/24 09:21 Oxygen Delivery Method Room Air 03/26/24 09:21 Temperature 98.4 F 03/26/24 09:21 Pulse Rate 72 03/26/24 14:03 Respiratory Rate 18 03/26/24 09:21 Blood Pressure 132/101 H 03/26/24 14:02 Pulse Oximetry 96 03/26/24 14:03 Oxygen Delivery Method Room Air 03/26/24 09:21 Medications Administered Medications: Discontinued Medications Generic Name Dose Route Start Last Admin Trade Name Freq PRN Reason Stop Dose Admin Sodium Chloride 1,000 mls @ 1,000 mls/hr 03/26/24 10:56 03/26/24 12:20 0.9 % Sodium Chloride 1000 Ml IV 03/26/24 11:55 Infused .Q1H ONE Infusion Lorazepam 1 mg 03/26/24 10:03 03/26/24 10:29 Lorazepam 2 Mg/Ml Inj IVP 1 mg Q6H PRN Administration Medical Decision Making MDM Narrative Medical decision making narrative: I would wonder about related vitamin deficiency with history of alcohol use. Unclear if this might be related to history of TBI or spinal cord issue. Have managed to obtain imaging from MRI of cervical spine and this shows a broad-based central disc protrusion and [id number] foraminal stenosis at C5-6 year and mild left foraminal stenosis secondary to small left posterolateral disc protrusion. Not able to locate lumbar MRI at this time. I suspect this is more of a neuropathic nature with some exacerbation. Symptoms complicated by TBI. Further conversation also with mom present seems indicate more alcohol ingestion than admitted initially. I do place IV given normal saline as well as is single dose of lorazepam. Over time in the emergency department jitteriness and twitches generally settle. Did mention that he had been experiencing some chest pressure. Labs are reassuring in this regard without evidence of ischemic cardiovascular disease. No anemia. Chest x-ray reviewed independently by me with normal mediastinum. No infiltrate or pneumothorax. INDICATION: Mid chest pressure. TECHNIQUE: Chest 1 portable view. COMPARISON: None. FINDINGS: No pneumothorax or pleural effusion. Lungs are clear. Cardiac and mediastinal contours are within normal limits. Upper abdomen and osseous structures as imaged show no acute abnormality. IMPRESSION: No evidence of acute cardiopulmonary disease. Labs are reviewed with transaminases more elevated than usual though historically have been elevated. For outpatient follow-up I requested some B vitamin levels. Is not interested in detox facility. See patient discharge plan for further discussion I support you in your efforts at cutting back on your alcohol consumption. Please follow-up with your [facility] and the neurology appointment. Continue to take your B vitamins. Levels of these are still pending here. I would discuss this further in primary care follow-up. Medical Records Medical records reviewed: Yes I reviewed the patient's medical records Lab Data Lab results reviewed: Yes I reviewed the patient's lab results Labs: Lab Results 03/26/24 03/26/24 03/26/24 Range/Units 10:16 10:16 10:36 WBC 4.02 L (4.50-11.00) K/uL RBC 3.98 L (4.30-5.90) m/uL Hgb 13.4 L (13.5-17.5) gm/dL Hct 39.1 (37.0-53.0) % MCV 98 (80-100) fL MCH 34 (26-34) pg MCHC 34 (32-36) gm/dL RDW Coeff of Murphy 13.5 (11.5-15.5) % Plt Count 88 L (140-440) K/uL Neut % (Auto) 73.5 H (42.0-72.0) % Lymph % (Auto) 13.9 L (20-44) % [place] % (Auto) 10.7 (0.0-11.0) % Eos % (Auto) 0.7 (0.0-7.0) % Baso % (Auto) 0.7 (0.0-3.0) % Neut # (Auto) 3.00 (1.7-7.0) K/uL Lymph # (Auto) 0.60 L (0.90-2.90) K/uL [place] # (Auto) 0.40 (0.00-0.90) K/UL Eos # (Auto) 0.00 (0.00-0.50) K/uL Baso # (Auto) 0.00 (0.00-0.30) K/uL Abs Immat Gran (auto) 0.00 (0.00-0.30) K/uL Imm/Tot Granulo (auto) 0.5 % Sodium 135 (135-149) mmol/L Potassium 3.4 L (3.6-5.1) mmol/L Chloride 100 (96-114) mmol/L Carbon Dioxide 23 (20-32) mmol/L Anion Gap 12 (7-15) mEq/L BUN 10 (5-24) mg/dL Creatinine 0.7 (0.5-1.5) mg/dL Estimated Creat Clear 147.81 Estimated GFR 117 ml/min Glucose 86 (60-115) mg/dL Calcium 9.2 (8.4-10.6) mg/dL Magnesium 1.7 (1.5-2.6) mg/dL Total Bilirubin 1.3 (0.1-1.5) mg/dL Direct Bilirubin 0.5 (0.0-0.5) mg/dL AST 226 H (12-35) U/L ALT 258 H (4-50) U/L Alkaline Phosphatase 61 (40-150) U/L Troponin I < 0.01 L (0.01-0.04) ng/mL C-Reactive Protein < 0.5 L < 0.5 L (0.5-1.0) mg/dL Total Protein 6.9 (6.0-8.3) g/dL Albumin 4.5 (3.3-5.0) g/dL Whole Bld Vitamin B1 112 (70-180) nmol/L Whole Bld Vitamin B6 35.0 (20.0-125.0) nmol/L Vitamin B12 857 (243-894) pg/mL TSH 1.550 (0.270-4.20) uIU/mL Urine Color Yellow (Yellow) Urine Appearance Clear (Clear) Urine pH 5.5 (5.0-8.5) Ur Specific [place] 1.010 (1.000-1.030) Urine Protein Negative (Negative) Urine Glucose (UA) Negative (Negative) Urine Ketones Trace A (Negative) Urine Blood Negative (Negative) Urine Nitrite Negative (Negative) Urine Bilirubin Negative (Negative) Urine Urobilinogen 0.2 (0.2-1.0) Ur Leukocyte Esterase 1+ A (Negative) Urine RBC 0-2 (0-2) Urine WBC 2-5 (0-5) Ur Squamous Epith Cells None (None-Few) Urine Bacteria None (None) Urine Opiates Screen Negative (Negative) Ur Oxycodone Screen Negative (Negative) Urine Methadone Screen Negative (Negative) Ur Barbiturates Screen Negative (Negative) U Tricyclic Antidepress Negative (Negative) Ur Phencyclidine Scrn Negative (Negative) Ur Amphetamines Screen Negative (Negative) U Methamphetamines Scrn Negative (Negative) U Benzodiazepines Scrn Negative (Negative) Urine Cocaine Screen Negative (Negative) U Marijuana (THC) Screen Negative (Negative) Ur Drug Screen Comment See Note Ethyl Alcohol < 0.00 L (0.01-0.03) % Lab Acknowledgement 03/26/24 Range/Units 13:01 WBC (4.50-11.00) K/uL RBC (4.30-5.90) m/uL Hgb (13.5-17.5) gm/dL Hct (37.0-53.0) % MCV (80-100) fL MCH (26-34) pg MCHC (32-36) gm/dL RDW Coeff of Murphy (11.5-15.5) % Plt Count (140-440) K/uL Neut % (Auto) (42.0-72.0) % Lymph % (Auto) (20-44) % [place] % (Auto) (0.0-11.0) % Eos % (Auto) (0.0-7.0) % Baso % (Auto) (0.0-3.0) % Neut # (Auto) (1.7-7.0) K/uL Lymph # (Auto) (0.90-2.90) K/uL [place] # (Auto) (0.00-0.90) K/UL Eos # (Auto) (0.00-0.50) K/uL Baso # (Auto) (0.00-0.30) K/uL Abs Immat Gran (auto) (0.00-0.30) K/uL Imm/Tot Granulo (auto) % Sodium (135-149) mmol/L Potassium (3.6-5.1) mmol/L Chloride (96-114) mmol/L Carbon Dioxide (20-32) mmol/L Anion Gap (7-15) mEq/L BUN (5-24) mg/dL Creatinine (0.5-1.5) mg/dL Estimated Creat Clear Estimated GFR ml/min Glucose (60-115) mg/dL Calcium (8.4-10.6) mg/dL Magnesium (1.5-2.6) mg/dL Total Bilirubin (0.1-1.5) mg/dL Direct Bilirubin (0.0-0.5) mg/dL AST (12-35) U/L ALT (4-50) U/L Alkaline Phosphatase (40-150) U/L Troponin I (0.01-0.04) ng/mL C-Reactive Protein (0.5-1.0) mg/dL Total Protein (6.0-8.3) g/dL Albumin (3.3-5.0) g/dL Whole Bld Vitamin B1 (70-180) nmol/L Whole Bld Vitamin B6 (20.0-125.0) nmol/L Vitamin B12 (243-894) pg/mL TSH (0.270-4.20) uIU/mL Urine Color (Yellow) Urine Appearance (Clear) Urine pH (5.0-8.5) Ur Specific [place] (1.000-1.030) Urine Protein (Negative) Urine Glucose (UA) (Negative) Urine Ketones (Negative) Urine Blood (Negative) Urine Nitrite (Negative) Urine Bilirubin (Negative) Urine Urobilinogen (0.2-1.0) Ur Leukocyte Esterase (Negative) Urine RBC (0-2) Urine WBC (0-5) Ur Squamous Epith Cells (None-Few) Urine Bacteria (None) Urine Opiates Screen (Negative) Ur Oxycodone Screen (Negative) Urine Methadone Screen (Negative) Ur Barbiturates Screen (Negative) U Tricyclic Antidepress (Negative) Ur Phencyclidine Scrn (Negative) Ur Amphetamines Screen (Negative) U Methamphetamines Scrn (Negative) U Benzodiazepines Scrn (Negative) Urine Cocaine Screen (Negative) U Marijuana (THC) Screen (Negative) Ur Drug Screen Comment Ethyl Alcohol (0.01-0.03) % Lab Acknowledgement Test Added ECG Data Attestation: I personally reviewed and interpreted this ECG as follows: (Normal sinus rhythm at 66) Discharge Plan Discharge Clinical Impression: Neuropathy, Alcohol abuse, TBI (traumatic brain injury) Patient Disposition: Home w/ Parent or Adult Condition: Improved Additional Instructions: I support you in your efforts at cutting back on your alcohol consumption. Please follow-up with your TBI Clinic and the neurology appointment. Continue to take your B vitamins. Levels of these are still pending here. I would discuss this further in primary care follow-up. Prescriptions: No Action naltrexone 50 mg tablet 50 mg PO QDAY Qty: 30 1RF Rx Instructions: take 1 tablet daily for alcohol cravings bisacodyl [Dulcolax (bisacodyl)] 10 mg suppository 10 mg CA QDAY PRN (Reason: constipation) Qty: 12 0RF lorazepam 1 mg tablet 1 mg PO TID PRN trazodone 50 mg tablet 50 mg PO QDAY Qty: 90 0RF Rx Instructions: one tablet once nightly for sleep aide thiamine HCl (vitamin B1) 100 mg tablet 100 mg PO QDAY Qty: 90 3RF Rx Instructions: 1 tablet daily sertraline 50 mg tablet 50 mg PO QDAY Qty: 90 0RF Rx Instructions: once daily metoprolol succinate 50 mg tablet extended release 24 hr 50 mg PO QDAY Qty: 90 0RF Rx Instructions: one tablet daily for blood pressure mecobalamin (vitamin B12) 1,000 mcg tablet,chewable 1,000 mcg PO QDAY Qty: 90 3RF Rx Instructions: 1 tablet daily folic acid 1 mg tablet 1 mg PO QDAY Qty: 90 3RF Rx Instructions: 1 tablet daily for folate deficiency gabapentin 300 mg capsule 300 mg PO BID Qty: 60 0RF omeprazole 40 mg capsule,delayed release(DR/EC) 40 mg PO DAILY Qty: 90 3RF Rx Instructions: once daily for acid reflux Follow Up/Referrals: Ester Pa PA-C [Primary Care Provider] - Stand Alone Forms: [employer] Info Instructions
[2024-03-26 10:28] LABS: Basophils Percent Auto 0.7 % (0.0-3.0); Eosinophils Percent Auto 0.7 % (0.0-7.0); Hematocrit 39.1 % (37.0-53.0); Hemoglobin* 13.4 gm/dL (13.5-17.5); Immature Granulocytes Pct Auto 0.5 %; Lymphocytes Percent Auto 13.9 % (20-44); Mean Corpuscular HGB Conc 34 gm/dL (32-36); Mean Corpuscular Hemoglobin 34 pg (26-34); Mean Corpuscular Volume 98 fL (80-100); Monocytes Percent Auto 10.7 % (0.0-11.0); Neutrophils Percent Auto 73.5 % (42.0-72.0); Platelet Count* 88 K/uL (140-440); RDW Coefficient of Variation % 13.5 % (11.5-15.5); Red Blood Count 3.98 m/uL (4.30-5.90); White Blood Count* 4.02 K/uL (4.50-11.00)
[2024-03-26] MEDS: LORazepam 2 MG/ML inj 1 MG IVP (10:29)
[2024-03-26 10:39] LABS: Slide Review Reflex No
[2024-03-26 10:41] LABS: Appearance Urine Clear (Clear); Bilirubin Urine Negative (Negative); Blood Urine Negative (Negative); Color Urine Yellow (Yellow); Glucose Urine Negative (Negative); Ketones Urine Trace (Negative); Leukocyte Esterase Urine 1+ (Negative); Nitrite Urine Negative (Negative); Protein Urine Negative (Negative); Urobilinogen Urine 0.2 (0.2-1.0); pH Urine 5.5 (5.0-8.5)
[2024-03-26 10:48] LABS: Amphetamine Screen Urine Negative (Negative); Barbiturate Screen Urine Negative (Negative); Benzodiazepines Screen Urine Negative (Negative); Cannabinoid Screen Urine Negative (Negative); Cocaine Screen Urine Negative (Negative); Methadone Screen Urine Negative (Negative); Methamphetamines Screen Urine Negative (Negative); Opiate Screen Urine Negative (Negative); Oxycodone Screen Urine Negative (Negative); Phencyclidine Screen Urine Negative (Negative); Tricyclic Antidepressant Urine Negative (Negative)
[2024-03-26 10:53] LABS: Albumin* 4.5 g/dL (3.3-5.0); Chloride* 100 mmol/L (96-114); Sodium* 135 mmol/L (135-149)
[2024-03-26 10:54] LABS: Potassium* 3.4 mmol/L (3.6-5.1)
[2024-03-26 10:56] LABS: Alanine Aminotransferase* 258 U/L (4-50); Alkaline Phosphatase* 61 U/L (40-150); Anion Gap 12 mEq/L (7-15); Aspartate Amino Transferase* 226 U/L (12-35); Bilirubin Direct* 0.5 mg/dL (0.0-0.5); Bilirubin Total* 1.3 mg/dL (0.1-1.5); Blood Urea Nitrogen* 10 mg/dL (5-24); Carbon Dioxide* 23 mmol/L (20-32); Creatinine* 0.7 mg/dL (0.5-1.5); Est. Creatinine Clearance* 147.81; Estimated Glomerular Filt Rate 117 ml/min; Glucose* 86 mg/dL (60-115); Total Protein* 6.9 g/dL (6.0-8.3)
[2024-03-26 10:56] LABS: RBC Urine 0-2 (0-2)
[2024-03-26 10:57] LABS: Calcium* 9.2 mg/dL (8.4-10.6)
[2024-03-26 10:58] LABS: Magnesium* 1.7 mg/dL (1.5-2.6)
[2024-03-26 11:00] LABS: C Reactive Protein* < 0.5 mg/dL (0.5-1.0)
[2024-03-26 11:02] LABS: C Reactive Protein* < 0.5 mg/dL (0.5-1.0)
[2024-03-26 11:11] LABS: Troponin I* < 0.01 ng/mL (0.01-0.04)
[2024-03-26] MEDS: 0.9 % SODIUM CHLORIDE 1000 ml 1,000 ML IV (11:14)
[2024-03-26 12:20] LABS: Ethanol* < 0.00 % (0.01-0.03)
--- NOTE | 2024-03-26 13:02 | CRLHL7_ITS ---
For Patients: As a result of the Cures Act, medical imaging exams and procedure reports are released immediately into your electronic medical record. You may view this report before your referring provider. If you have questions, please contact your health care provider. INDICATION: Mid chest pressure. TECHNIQUE: Chest 1 portable view. COMPARISON: None. FINDINGS: No pneumothorax or pleural effusion. Lungs are clear. Cardiac and mediastinal contours are within normal limits. Upper abdomen and osseous structures as imaged show no acute abnormality. IMPRESSION: No evidence of acute cardiopulmonary disease. Dictated by Gerber Garcia MD @ 03/26/2024 2:25:52 PM (Electronically Signed)
[2024-03-26 18:07] LABS: Vitamin B12* 857 pg/mL (243-894)
[2024-03-29 14:54] LABS: Vitamin B1, Whole Blood 112 nmol/L (70-180)
== END 2024-03-26 14:48 | disposition home or self-care (01) ==
PROVIDERS: Emergency Provider Family Medicine; PCP Physician Assistant Medical
DX: G62.9 Polyneuropathy, unspecified (principal); F10.10 Alcohol abuse, uncomplicated; S06.9XAA Unspecified intracranial injury with loss of consciousness status unknown, initial encounter
CPT/HCPCS: 36415; 71045; 80048; 80076; 80306; 81001; 82077; 82607; 83735; 84207; 84425; 84443; 84484; 85025; 86140; 87086; 93005; 96374; 99284; J2060; J7030

== ENCOUNTER 2024-03-28 15:56 | Outpatient (CLI) | payer OTHER, SELFPAY | END 2024-03-28 15:57 | disposition home or self-care (01) | PROVIDERS: PCP Physician Assistant Medical; Visit Provider Physician Assistant Medical | DX: R74.8 Abnormal levels of other serum enzymes (principal); R79.89 Other specified abnormal findings of blood chemistry | CPT/HCPCS: 83735; 84443 ==

== ENCOUNTER 2024-04-24 10:20 | Outpatient (CLI) | payer OTHER, SELFPAY | END 2024-04-24 10:21 | disposition home or self-care (01) | LOC: LKVREF 10:21 | PROVIDERS: PCP Physician Assistant Medical; Visit Provider Physician Assistant Medical | DX: F10.90 Alcohol use, unspecified, uncomplicated (principal) | CPT/HCPCS: 83735 ==

== ENCOUNTER 2024-09-05 10:43 | Outpatient (CLI) | payer OTHER, SELFPAY | END 2024-09-05 10:44 | disposition home or self-care (01) | PROVIDERS: PCP Physician Assistant Medical; Visit Provider Physician Assistant Medical | DX: F10.20 Alcohol dependence, uncomplicated (principal) | CPT/HCPCS: 80053; 83735 ==

== ENCOUNTER 2024-11-20 11:30 | Outpatient (CLI) | payer OTHER, SELFPAY | END 2024-11-20 11:31 | disposition home or self-care (01) | LOC: LKVREF 11:31 | PROVIDERS: PCP Physician Assistant Medical; Visit Provider Physician Assistant Medical | DX: R79.89 Other specified abnormal findings of blood chemistry (principal); R40.20 Unspecified coma | CPT/HCPCS: 80053 ==

== ENCOUNTER 2024-11-28 13:34 | Outpatient (CLI) | payer OTHER, SELFPAY ==
[2024-11-28] MEDS: PERFLUTREN LIPID MICROSPHERES 2 ML VIAL IVP (14:15)
[2024-11-28] MEDS: DOBUTamine 250 MG in 5 % DEXTROSE 250 ML 230 ML 10 MG IVPB (14:24)
[2024-11-28] MEDS: ATROPINE 1 mg/10 ml IVP (14:28)
--- NOTE | 2024-11-28 14:46 | P.STN_ITS ---
Stress Test Note Date Date Seen: 11/28/24 Date of test: 11/28/24 Providers Primary care provider: Ester Pa Stress test physician: Tala Hawthorne Stress Test Note Stress test ordered: Dobutamine Echo Indication for test: Syncopal episode Stress test medicine: Dobutamine Results discussion: Resting EKG: Sinus rhythm, 79 beats per minute. Resting blood pressure: 118/72 Stress test: Patient is consented on ordered stress test of dobutamine stress echo, he agrees to proceed. Patient had appropriate echo images, these images are pending and will complete this stress test. Dobutamine was up to 30 mcg per kilos per minute (started at 10 mcg per kilos per minute), did receive 0.25 mg atropine around 7 minutes 24 seconds. There were some flipped T-waves in lead 3 and V3 without any other significant EKG changes, these lead seem to be isolated. Patient did get a maximum heart rate of 161 beats per minute which was 108% of a calculated target heart rate of 149. Patient had no significant hypotension. Stated he had no chest pain but when pressed on this, he stated m aybe there was little sense of chest tightness during maximal infusion of the dobutamine. He did not have any arrhythmia, no PVCs, no definitive EKG changes of any diagnostic ischemia. He did feel a sense of buzzing in his head initially during the infusion of the dobutamine. Note definity was used to obtain echo images.
[2024-11-28 14:50] VITALS: BP 143/89; PULSE 89; RESP 22; O2SAT 100
== END 2024-11-28 14:54 | disposition home or self-care (01) ==
PROVIDERS: PCP Physician Assistant Medical; Visit Provider Physician Assistant Medical
DX: R55 Syncope and collapse (principal)
CPT/HCPCS: 93016; 93325; 93351; J0461; J1250; J7050; Q9957

== ENCOUNTER 2024-12-12 12:31 | Outpatient (CLI) | payer OTHER, SELFPAY ==
--- NOTE | 2024-12-12 13:00 | MR_ITS ---
Patient: ISAIAH REYES Facility:?[facility] Patient ID:?[id number] Site Patient ID:?[id number]. Site :?[id number] Study:?MRI-Head W/O-12/12/2024 2:51:35 PM Ordering Physician:Cassius Norman Final Report: Indication: Unspecified coma. Technique: Multiplanar, multisequence MRI of the brain was performed without intravenous contrast. Comparison: CT head 06/07/2021. Findings: Slight thinning of the corpus callosum. The pituitary gland clivus appear intact. Mild degenerative change visualized upper cervical spine. There is no restricted diffusion. No intracranial hemorrhage. The ventricles are proportionate to the cerebral sulci. The 4th ventricle appears midline. The basal cisterns appear patent. No abnormal extra-axial fluid collection identified. Mild parenchymal volume loss. Scattered T2 FLAIR hyperintense foci within the subcortical and periventricular white matter, favored to represent chronic ischemic microvascular disease. There is no intracranial mass, abnormal mass-effect or midline shift identified. Major intracranial vascular flow voids appear grossly intact. Both globes are preserved. Impression: 1. No acute intracranial process. 2. Mild chronic ischemic microvascular disease. Dictated by Darius Martinez MD @ 12/12/2024 3:45:00 PM Signed by:?Darius Martinez MD @12/12/2024 3:45:00 PM (Electronic Signature)
== END 2024-12-12 12:32 | disposition home or self-care (01) ==
LOC: MRI 12:32
PROVIDERS: PCP Physician Assistant Medical; Visit Provider Physician Assistant Medical
DX: I67.82 Cerebral ischemia (principal); R40.20 Unspecified coma
CPT/HCPCS: 70551

== ENCOUNTER 2025-01-08 11:36 | Outpatient (CLI) | payer OTHER, SELFPAY | END 2025-01-08 11:37 | disposition home or self-care (01) | PROVIDERS: PCP Physician Assistant Medical; Visit Provider Physician Assistant Medical | DX: F10.90 Alcohol use, unspecified, uncomplicated (principal) | CPT/HCPCS: 80053; 83735 ==

== ENCOUNTER 2025-03-13 14:53 | Outpatient (CLI) | payer OTHER, SELFPAY | END 2025-03-13 14:54 | disposition home or self-care (01) | LOC: LKVREF 14:55 | PROVIDERS: PCP Physician Assistant Medical; Visit Provider Physician Assistant Medical | DX: F10.90 Alcohol use, unspecified, uncomplicated (principal) | CPT/HCPCS: 80053 ==